=== PATIENT | female | born 1950 ===

== ENCOUNTER 2017-02-19 12:51 | Inpatient (IN) | payer MEDICARE ==
[2017-02-19] MEDS ORDERED: Aspirin 325 mg EC Tablets PO STA (14:52)
[2017-02-19] MEDS ORDERED: Aspirin 325 mg EC Tablets PO ONE (15:18)
[2017-02-19 15:27] LABS: BASO # 0.1 K/uL (0.0-0.2); BASO % 1.4 % (0.0-2.0); EOS # 0.2 K/uL (0.0-0.7); EOS % 3.2 % (0.0-4.0); HEMATOCRIT 35.5 % (34.0-47.0); LYMPH # 1.9 K/uL (1.0-4.3); LYMPH % 34.7 % (20.0-40.0); MEAN CELL VOLUME 84.5 fL (81.0-99.0); MEAN CORPUSCULAR HEMOGLOBIN 28.4 pg (27.0-31.0); MEAN CORPUSCULAR HGB CONC 33.6 g/dL (33.0-37.0); MEAN PLATELET VOLUME 8.8 fL (7.2-11.7); MONO # 0.4 K/uL (0.0-0.8); MONO % 7.8 % (0.0-10.0); RED CELL DISTRIBUTION WIDTH 13.7 % (11.5-14.5); WHITE BLOOD COUNT 5.5 K/uL (4.8-10.8)
[2017-02-19 15:40] LABS: INR 1.1
[2017-02-19 16:02] LABS: BILIRUBIN,TOTAL 0.7 mg/dL (0.2-1.3); GFR AFRICAN-AMERICAN > 60; GLUCOSE,RANDOM 150 mg/dL (65-105); TOTAL PROTEIN 9.1 g/dL (6.3-8.3)
[2017-02-19 16:11] LABS: ALKALINE PHOSPHATASE 59 U/L (38-126); ALT/SGPT 34 U/L (9-52); AST/SGOT 31 U/L (14-36); BLOOD UREA NITROGEN 23 mg/dL (7-17); CARBON DIOXIDE 23 mmol/L (22-30); CHLORIDE 101 mmol/L (98-107); SODIUM 136 mmol/L (132-148)
--- NOTE | 2017-02-19 16:57 | RAD ---
PROCEDURE: CHEST RADIOGRAPH, 1 VIEW HISTORY: chest pain COMPARISON: Comparison chest 07/26/2016. FINDINGS: LUNGS: Mild bibasilar atelectasis left greater than right. Slight elevation left hemidiaphragm likely due to subjacent air-filled bowel within the left upper quadrant of the abdomen. PLEURA: No pneumothorax or pleural fluid seen. CARDIOVASCULAR: Normal. OSSEOUS STRUCTURES: No significant abnormalities. VISUALIZED UPPER ABDOMEN: Metallic clips right upper quadrant of the abdomen consistent with prior cholecystectomy. OTHER FINDINGS: None. IMPRESSION: Mild bibasilar atelectasis left greater than right. Slight elevation left hemidiaphragm as above.
--- NOTE | 2017-02-19 17:51 | C.PDOC ---
History Of Present Illness Pt was sent in by her [employer] Operator Dr. Vanegas for admission. Time Seen by Provider: 02/19/17 14:14 Chief Complaint (Nursing): Chest Pain History Per: Patient Onset/Duration Of Symptoms: Days, Intermittent Episodes Current Symptoms Are (Timing): Still Present Severity: Moderate Quality: Pressure Associated Symptoms: Dyspnea. denies: Diaphoresis, Syncope Modifying Factors: Other Indicated Below Exacerbating Factors: Exertion Alleviating Factors: Rest Additional History Per: Prior Records Past Medical History Reviewed: Historical Data, Nursing Documentation, Vital Signs Vital Signs: Last Vital Signs Temp 98.2 F 02/19/17 13:13 Pulse 94 H 02/19/17 13:13 Resp 20 02/19/17 13:13 BP 155/81 H 02/19/17 13:13 Pulse Ox 100 02/19/17 13:13 - Medical History PMH: Asthma (childhood), Diabetes, HTN, Hypercholesterolemia Surgical History: Cholecystectomy Other Surgeries: Hysterectomy - [facility] Procedures CORONAR ARTERIOGR-2 CATH (06/01/01) LEFT HEART CARDIAC CATH (06/01/01) LT HEART ANGIOCARDIOGRAM (06/01/01) Family History: States: Unknown Family Hx - Social History Hx Tobacco Use: No Hx Alcohol Use: No Hx Substance Use: No - Immunization History Hx Tetanus Toxoid Vaccination: No Hx Influenza Vaccination: Yes Hx Pneumococcal Vaccination: No Review Of Systems Except As Marked, All Systems Reviewed And Found Negative. Constitutional: Negative for: Fever, Weakness Cardiovascular: Positive for: Chest Pain Respiratory: Positive for: SOB with Excertion. Negative for: Hemoptysis Gastrointestinal: Negative for: Vomiting, Abdominal Pain Musculoskeletal: Negative for: Neck Pain, Back Pain, Leg Pain Skin: Negative for: Rash Neurological: Negative for: Weakness, Numbness Physical Exam - Physical Exam Appears: Non-toxic, No Acute Distress Skin: Normal Color, Warm, Dry, No Rash Head: Atraumatic, Normacephalic Eye(s): bilateral: Normal Inspection, PERRL, EOMI Neck: Normal ROM, Supple Cardiovascular: Rhythm Regular Respiratory: Normal Breath Sounds, No Accessory Muscle Use Gastrointestinal/Abdominal: Soft, No Tenderness Back: No CVA Tenderness Extremity: Normal ROM, No Calf Tenderness Neurological/Psych: Oriented x3, Normal Motor, Normal Sensation ED Course And Treatment - Laboratory Results Result Diagrams: 02/19/17 15:15 02/19/17 15:15 Lab Interpretation: No Acute Changes ECG: Interpreted By Me, Viewed By Me ECG Rhythm: Sinus Rhythm, R BBB, Nonspecific Changes ECG Interpretation: Abnormal Interpretation Of ECG: No prior EKG available for comparison Rate From EC O2 Sat by Pulse Oximetry: 100 Pulse Ox Interpretation: Normal - Radiology CXR: Viewed By Me, Read By Radiologist CXR Interpretation: Yes: No Acute Disease Progress - Interventions Interventions:: Observation - Medications Administered Oral: Aspirin - Data Reviewed Data Reviewed: Lab, Diagnostic imaging, EKG, Old records - Continuity of Care Discussed patient case with:: Patient, ED Nurse, PMD - Patient Plan Patient Plan: Admission, Telemetry Disposition Discussed With Dr.: Aquiles Strange Jr. Comment: He accepted pt on his service. Pt also signed out to [facility]. Doctor Will See Patient In The: Hospital Counseled Patient/Family Regarding: Studies Performed, Diagnosis - Disposition Disposition: HOSPITALIZED Disposition Time: 17:54 Condition: FAIR - Clinical Impression Clinical Impression: Exertional chest pain, Angina pectoris
[2017-02-19] MEDS ORDERED: Glucagon Recombinant 1 mg Inj IM PRN (18:03)
[2017-02-19] MEDS ORDERED: Dextrose 50% SYRINGE Inj (50 ml) IV PRN (18:03)
--- NOTE | 2017-02-19 18:25 | CP.PCM.HP ---
History of Present Illness - History of Present Illness History of Present Illness: CC: Chest pain for months with movement This patient is a 66yo F w/ a PMhx of HTN, HLD, DM on Insulin, and strong family history of CAD and from [place] in 50's (Dad , brother with [place] and stroke), previous smoker who is coming into the hospital for a few months duration of left sided chest pain worse with exercise and movement. She states he moves into her left arm, and gets better with rest. However it has been happening more frequently with less and less movement. Patient is currently denying any chest pain, HILL, fevers/chills, N/V/D, dysuria/freq/urg, or lower extremity pain/swelling. PMhx: HTN, HLD, DM on insulin Allergies: Contrast Dye; anaphylaxis Meds: Please refer to MAR Surgeries: extensive; gallbladder removal, total abdominal hysterectomy w/ complication of extensive adhesions causing pederson-enteritis which eventually resulted in 1yr of colostomy and eventual reversal, hand surgery FamHx: Dad in 50's from heart attack, brother with stroke and [place] Social: previous smoker, stopped 20 years ago, denies Etoh/drugs, independent in all IADL and ADL, walks without independently Present on Admission - Present on Admission Any Indicators Present on Admission: No History of DVT/PE: No History of Uncontrolled Diabetes: Yes Urinary Catheter: No Decubitus Ulcer Present: No Review of Systems - Constitutional Constitutional: As Per HPI Past Patient History - Infectious Disease Hx of Infectious Diseases: None - Past Social History Smoking Status: Never Smoked - CARDIAC Hx Hypercholesterolemia: Yes Hx Hypertension: Yes - PULMONARY Hx Asthma: Yes (childhood) - ENDOCRINE/METABOLIC Hx Diabetes Mellitus Type 2: Yes - HEMATOLOGICAL/ONCOLOGICAL Hx Blood Disorders: No - INTEGUMENTARY Hx Dermatological Problems: No - MUSCULOSKELETAL/RHEUMATOLOGICAL Hx Musculoskeletal Disorders: No - GASTROINTESTINAL Hx Gastrointestinal Disorders: No - GENITOURINARY/GYNECOLOGICAL Hx Genitourinary Disorders: No - PSYCHIATRIC Hx Substance Use: No - SURGICAL HISTORY Hx Cholecystectomy: Yes - ANESTHESIA Hx Anesthesia: Yes Hx Anesthesia Reactions: No Meds Allergies/Adverse Reactions: Allergies Allergy/AdvReac Type Severity Reaction Status Date / Time metronidazole [From Flagyl] Allergy Verified 02/19/17 14:04 contrast dye Allergy Uncoded 02/19/17 14:04 Physical Exam - Constitutional Appears: Well, Non-toxic - Head Exam Head Exam: ATRAUMATIC, NORMAL INSPECTION - Eye Exam Eye Exam: EOMI, Normal appearance - ENT Exam ENT Exam: Mucous Membranes Moist - Neck Exam Neck exam: Positive for: Normal Inspection - Respiratory Exam Respiratory Exam: Clear to Auscultation Bilateral, NORMAL BREATHING PATTERN. absent: Rales, Rhonchi, Wheezes - Cardiovascular Exam Cardiovascular Exam: REGULAR RHYTHM, RRR, +S1, +S2, Systolic Murmur (5/6 systolic murmur in pulmonic region). absent: Gallop - GI/Abdominal Exam GI & Abdominal Exam: Normal Bowel Sounds, Soft. absent: Tenderness - Rectal Exam Rectal Exam: Deferred - Extremities Exam Extremities exam: Positive for: full ROM. Negative for: calf tenderness - Back Exam Back exam: NORMAL INSPECTION. absent: CVA tenderness (L), CVA tenderness (R) - Neurological Exam Neurological exam: Alert, Oriented x3 - Psychiatric Exam Psychiatric exam: Normal Affect - Skin Skin Exam: Warm Results - Vital Signs Recent Vital Signs: Last Vital Signs Temp 98.2 F 02/19/17 13:13 Pulse 94 H 02/19/17 13:13 Resp 20 02/19/17 13:13 BP 155/81 H 02/19/17 13:13 Pulse Ox 100 02/19/17 17:54 - Labs Result Diagrams: 02/19/17 15:15 02/19/17 15:15 Labs: Laboratory Results - last 24 hr 02/19/17 02/19/17 02/19/17 15:15 15:15 15:15 WBC 5.5 RBC 4.20 Hgb 11.9 Hct 35.5 MCV 84.5 MCH 28.4 MCHC 33.6 RDW 13.7 Plt Count 221 MPV 8.8 Neut % (Auto) 52.9 Lymph % (Auto) 34.7 [place] % (Auto) 7.8 Eos % (Auto) 3.2 Baso % (Auto) 1.4 Neut # 2.9 Lymph # 1.9 [place] # 0.4 Eos # 0.2 Baso # 0.1 PT 12.2 INR 1.1 APTT 30 Sodium 136 Potassium 5.0 Chloride 101 Carbon Dioxide 23 Anion Gap 17 BUN 23 H Creatinine 1.0 Est GFR ( Amer) > 60 Est GFR (Non-Af Amer) 55 Random Glucose 150 H Calcium 9.0 Total Bilirubin 0.7 AST 31 ALT 34 Alkaline Phosphatase 59 Troponin I < 0.0120 NT-Pro-B Natriuret Pep 40.6 Total Protein 9.1 H Albumin 4.6 Globulin 4.5 H Albumin/Globulin Ratio 1.0 Assessment & Plan - Assessment and Plan (Free Text) Assessment: 66yo F admitted for Unstable Angina Unstable Angina -Keisha 1 negative; f/u next 2 -EKG shows incomplete RBBB; no previous to compare -f/u lipid panel, hemoglobin A1c, TSH/T4 -patient is NPO after midnight for cath tomorrow AM -f/u echo results -Dr. Vanegas; Cardiology; appreciate recs -will hold nephrotoxic meds for now -will prehydrate patient for cath -patient is allergic to dye; ordered anaphylaxis meds for 1hr before cath tomorrow (solumedrol, benadryl, pepcid, tylenol) HTN -c/w home meds -PRN hydralazine for BP above 185/95 HLD -Crestor HS DM -RISS Med -hold metformin and glipizide Elevated Serum Protein -sent PEP and Immunofixation; f/u results Proph Pepcid SCD after Cath Case Discussed with Dr. Strange Decision To Admit - Pt Status Changed To: Hospital Disposition Of: Inpatient - Admit Certification Admit to Inpatient:: After my assessment, the patient will require hospitalization for at least two midnights. This is because of the severity of symptoms shown, intensity of services needed, and/or the medical risk in this patient being treated as an outpatient. - InPatient: Physician Admission Certification:: Unstable Angina, Cath, HTN, DM, HLD, elevated serum protein - . Bed Request Type: Telemetry Admitting Physician: Aquiles Strange Jr.
[2017-02-19] MEDS ORDERED: Enoxaparin 40 mg Syringe SC ONE (18:29)
[2017-02-19] MEDS ORDERED: Enoxaparin 40 mg Syringe ONE (19:55)
--- NOTE | 2017-02-19 19:56 | CP.PCM.CON ---
History of Present Illness - History of Present Illness History of Present Illness: Unstable angina 66 F with hx of DM, HTN, hyperlipidemia and strong family history of [place] admitted with unstable angina Scheduled for cath tomorrow Past Patient History - Infectious Disease Hx of Infectious Diseases: None - Past Social History Smoking Status: Never Smoked - CARDIAC Hx Hypercholesterolemia: Yes Hx Hypertension: Yes - PULMONARY Hx Asthma: Yes (childhood) - ENDOCRINE/METABOLIC Hx Diabetes Mellitus Type 2: Yes - HEMATOLOGICAL/ONCOLOGICAL Hx Blood Disorders: No - INTEGUMENTARY Hx Dermatological Problems: No - MUSCULOSKELETAL/RHEUMATOLOGICAL Hx Musculoskeletal Disorders: No - GASTROINTESTINAL Hx Gastrointestinal Disorders: No - GENITOURINARY/GYNECOLOGICAL Hx Genitourinary Disorders: No - PSYCHIATRIC Hx Substance Use: No - SURGICAL HISTORY Hx Cholecystectomy: Yes - ANESTHESIA Hx Anesthesia: Yes Hx Anesthesia Reactions: No Meds Allergies/Adverse Reactions: Allergies Allergy/AdvReac Type Severity Reaction Status Date / Time metronidazole [From Flagyl] Allergy Verified 02/19/17 14:04 contrast dye Allergy Uncoded 02/19/17 14:04 - Medications Medications: Current Medications Acetaminophen (Tylenol 325mg Tab) 650 mg PO Q6 PRN PRN Reason: Fever >100.4 F Acetaminophen (Tylenol 325mg Tab) 975 mg PO ONCE ONE Stop: 02/20/17 08:01 Aspirin (Ecotrin) 81 mg PO DAILY DANIEL Dextrose (Dextrose 50% Inj) 0 ml IV STAT PRN; Protocol PRN Reason: Hypoglycemia Protocol Dextrose (Glutose 15) 0 gm PO ONCE PRN; Protocol PRN Reason: Hypoglycemia Protocol Diphenhydramine HCl (Benadryl) 50 mg IVP ONCE ONE Stop: 02/20/17 08:01 Enalapril Maleate (Vasotec) 20 mg PO DAILY DANIEL Famotidine (Pepcid) 20 mg IVP ONCE ONE Stop: 02/20/17 08:01 Glucagon (Glucagen Diagnostic Kit) 0 mg IM STAT PRN; Protocol PRN Reason: Hypoglycemia Protocol Home Med (Adalimumab [Humira Pen]) 12 units SQ HS DANIEL Hydralazine HCl (Apresoline) 10 mg IVP Q6H PRN PRN Reason: High BP Sodium Chloride (Sodium Chloride 0.9%) 1,000 mls @ 1,000 mls/hr IV .Q1H ONE Stop: 02/20/17 06:59 Dextrose (Dextrose 5% In Water 1000 Ml) 1,000 mls @ 0 mls/hr IV .Q0M PRN; Protocol; Per Protocol PRN Reason: Hypoglycemia Protocol Insulin Aspart (Novolog) 0 unit SC ACHS DANIEL PRN Reason: Protocol Methylprednisolone (Solu-Medrol) 125 mg IVP ONCE DANIEL Ondansetron HCl (Zofran Inj) 4 mg IVP Q6 PRN PRN Reason: Nausea/Vomiting Pantoprazole Sodium (Protonix Ec Tab) 40 mg PO DAILY DANIEL Rosuvastatin Calcium (Crestor) 10 mg PO HS DANIEL Results - Vital Signs Recent Vital Signs: Last Vital Signs Temp 98.2 F 02/19/17 13:13 Pulse 94 H 02/19/17 13:13 Resp 20 02/19/17 13:13 BP 155/81 H 02/19/17 13:13 Pulse Ox 100 02/19/17 17:54 - Labs Result Diagrams: 02/19/17 15:15 02/19/17 15:15 Labs: Laboratory Results - last 24 hr 02/19/17 02/19/17 02/19/17 15:15 15:15 15:15 WBC 5.5 RBC 4.20 Hgb 11.9 Hct 35.5 MCV 84.5 MCH 28.4 MCHC 33.6 RDW 13.7 Plt Count 221 MPV 8.8 Neut % (Auto) 52.9 Lymph % (Auto) 34.7 [place] % (Auto) 7.8 Eos % (Auto) 3.2 Baso % (Auto) 1.4 Neut # 2.9 Lymph # 1.9 [place] # 0.4 Eos # 0.2 Baso # 0.1 PT 12.2 INR 1.1 APTT 30 Sodium 136 Potassium 5.0 Chloride 101 Carbon Dioxide 23 Anion Gap 17 BUN 23 H Creatinine 1.0 Est GFR ( Amer) > 60 Est GFR (Non-Af Amer) 55 Random Glucose 150 H Calcium 9.0 Total Bilirubin 0.7 AST 31 ALT 34 Alkaline Phosphatase 59 Troponin I < 0.0120 NT-Pro-B Natriuret Pep 40.6 Total Protein 9.1 H Albumin 4.6 Globulin 4.5 H Albumin/Globulin Ratio 1.0 TSH 3rd Generation 02/19/17 18:52 WBC RBC Hgb Hct MCV MCH MCHC RDW Plt Count MPV Neut % (Auto) Lymph % (Auto) [place] % (Auto) Eos % (Auto) Baso % (Auto) Neut # Lymph # [place] # Eos # Baso # PT INR APTT Sodium Potassium Chloride Carbon Dioxide Anion Gap BUN Creatinine Est GFR ( Amer) Est GFR (Non-Af Amer) Random Glucose Calcium Total Bilirubin AST ALT Alkaline Phosphatase Troponin I NT-Pro-B Natriuret Pep Total Protein Albumin Globulin Albumin/Globulin Ratio TSH 3rd Generation 0.63
[2017-02-19] MEDS: (Novolog) Insulin Aspart, Recombinant 100 u/ml 10 ml vial SC SCH (21:30)
[2017-02-19] MEDS ORDERED: ADALIMUMAB SQ SCH (22:00)
[2017-02-19] MEDS ORDERED: (Novolog) Insulin Aspart, Recombinant 100 u/ml 10 ml vial SC SCH (22:00)
[2017-02-20 04:14] LABS: BASO # 0.1 K/uL (0.0-0.2); BASO % 1.3 % (0.0-2.0); EOS # 0.3 K/uL (0.0-0.7); EOS % 4.6 % (0.0-4.0); HEMATOCRIT 33.9 % (34.0-47.0); LYMPH # 2.7 K/uL (1.0-4.3); LYMPH % 47.8 % (20.0-40.0); MEAN CELL VOLUME 83.4 fL (81.0-99.0); MEAN CORPUSCULAR HEMOGLOBIN 28.1 pg (27.0-31.0); MEAN CORPUSCULAR HGB CONC 33.7 g/dL (33.0-37.0); MEAN PLATELET VOLUME 8.7 fL (7.2-11.7); MONO # 0.4 K/uL (0.0-0.8); MONO % 6.5 % (0.0-10.0); RED CELL DISTRIBUTION WIDTH 13.4 % (11.5-14.5); WHITE BLOOD COUNT 5.6 K/uL (4.8-10.8)
[2017-02-20] MEDS ORDERED: Sodium Chloride 0.9% 1,000 ML IV ONE (06:00)
[2017-02-20 06:26] LABS: ALB/GLOB RATIO 1.5 (1.0-2.1); ALKALINE PHOSPHATASE 62 U/L (38-126); ALT/SGPT 31 U/L (9-52); AST/SGOT 19 U/L (14-36); BILIRUBIN,TOTAL 0.6 mg/dL (0.2-1.3); BLOOD UREA NITROGEN 21 mg/dL (7-17); CALCIUM 8.9 mg/dl (8.6-10.4); CARBON DIOXIDE 26 mmol/L (22-30); CHLORIDE 101 mmol/L (98-107); CHOLESTEROL 127 mg/dL (0-199); GFR AFRICAN-AMERICAN 60; GLUCOSE,RANDOM 188 mg/dL (65-105); POTASSIUM 4.9 mmol/L (3.6-5.2); SODIUM 135 mmol/L (132-148)
[2017-02-20] MEDS: (Novolog) Insulin Aspart, Recombinant 100 u/ml 10 ml vial SC SCH ×4 (07:50→21:52)
[2017-02-20] MEDS ORDERED: DiphenhydrAMINE 50 mg/ml Inj IVP ONE (08:00)
[2017-02-20] MEDS ORDERED: DiphenhydrAMINE 50 mg/ml Inj ONE (08:11)
--- NOTE | 2017-02-20 09:37 | CP.PCM.PN ---
Subjective - Date & Time of Evaluation Date of Evaluation: 02/20/17 Time of Evaluation: 04:00 - Subjective Subjective: Medicine Note (PGY-1)----> Dr. Strange's service Patient was seen and examined at bedside. Patient reports that she is doing well and has no complaints. Patient denies fever, chills, chest pain, sob, palpitations, diaphoresis, nausea, vomiting, headache, dizziness, abdominal pain , nausea and vomiting. Patient is tolerating diet and ambulating. Patient is scheduled for a cardiac catherization tomorrow. Objective - Vital Signs/Intake and Output Vital Signs (last 24 hours): Temp Pulse Resp BP Pulse Ox 98 F 89 22 160/73 H 97 02/20/17 06:34 02/20/17 09:05 02/20/17 09:05 02/20/17 09:05 02/20/17 09:05 - Medications Medications: Current Medications Acetaminophen (Tylenol 325mg Tab) 650 mg PO Q6 PRN PRN Reason: Fever >100.4 F Aspirin (Ecotrin) 81 mg PO DAILY DANIEL Dextrose (Dextrose 50% Inj) 0 ml IV STAT PRN; Protocol PRN Reason: Hypoglycemia Protocol Dextrose (Glutose 15) 0 gm PO ONCE PRN; Protocol PRN Reason: Hypoglycemia Protocol Enalapril Maleate (Vasotec) 20 mg PO DAILY DANIEL Glucagon (Glucagen Diagnostic Kit) 0 mg IM STAT PRN; Protocol PRN Reason: Hypoglycemia Protocol Home Med (Adalimumab [Humira Pen]) 12 units SQ HS DANIEL Hydralazine HCl (Apresoline) 10 mg IVP Q6H PRN PRN Reason: High BP Dextrose (Dextrose 5% In Water 1000 Ml) 1,000 mls @ 0 mls/hr IV .Q0M PRN; Protocol; Per Protocol PRN Reason: Hypoglycemia Protocol Insulin Aspart (Novolog) 0 unit SC ACHS DANIEL PRN Reason: Protocol Last Admin: 02/20/17 07:50 Dose: Not Given Methylprednisolone (Solu-Medrol) 125 mg IVP ONCE DANIEL Ondansetron HCl (Zofran Inj) 4 mg IVP Q6 PRN PRN Reason: Nausea/Vomiting Pantoprazole Sodium (Protonix Ec Tab) 40 mg PO DAILY DANIEL Rosuvastatin Calcium (Crestor) 10 mg PO HS DANIEL - Labs Labs: 02/20/17 04:09 02/20/17 04:09 PT 12.2 SECONDS (9.7-12.2) 02/19/17 15:15 INR 1.1 02/19/17 15:15 APTT 30 SECONDS (21-34) 02/19/17 15:15 - Constitutional Appears: Well, No Acute Distress - Head Exam Head Exam: ATRAUMATIC - Eye Exam Eye Exam: EOMI, Normal appearance - ENT Exam ENT Exam: Mucous Membranes Moist - Respiratory Exam Respiratory Exam: Clear to Ausculation Bilateral, NORMAL BREATHING PATTERN - Cardiovascular Exam Cardiovascular Exam: REGULAR RHYTHM, +S1, +S2, Murmur - GI/Abdominal Exam GI & Abdominal Exam: Soft, Normal Bowel Sounds - Extremities Exam Extremities Exam: Normal Inspection - Neurological Exam Neurological Exam: Alert, Awake, Oriented x3 - Psychiatric Exam Psychiatric exam: Normal Affect - Skin Skin Exam: Normal Color Assessment and Plan (1) Exertional chest pain Assessment & Plan: Rock 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 Vanegas on board---> Help appreciated * Management as per recommendation * Cardiac catherization tomorrow R/o AR * HgbA1c: 8.4 * Lipid Panel: TGL (173), LDL (53), HDL (47), Cholesterol (127) * T3 Generation: 0.63 * VIN ( Negative X3) * Lexiscan from 05/13 was normal with normal EF * EKG shows NSR, incomplete RBBB; no previous to compare Medications: * Aspirin 81mg PO daily * Crestor 10mg POI HS Status: Acute (2) History of diabetes mellitus Assessment & Plan: HgbA1C: 8.4 Accuchecks ISS medium dose Hypoglycemia protocol Status: Acute (3) History of hypertension Assessment & Plan: Medications: * Vasotec 20mg PO daily * Hydralazine 10mg IV Q6H prn; SBP>180 and diastolic >95 Status: Acute (4) History of hyperlipidemia Assessment & Plan: Medications: * Crestor 10mg PO HS Status: Acute (5) Prophylactic measure Assessment & Plan: GI: Protonix 40mg PO daily DVT: SCDS Status: Acute
[2017-02-20] MEDS ORDERED: INSULIN ASPART 15 UNIT SQ SCH (10:00)
[2017-02-20] MEDS: Pantoprazole 40 mg EC Tab PO SCH (15:14)
--- NOTE | 2017-02-20 17:44 | CARD ---
APPROVED REPORT EKG Measurement Heart [id number] <Conclusion> Normal sinus rhythm with sinus arrhythmia Left axis deviation Right bundle branch block Abnormal ECG
[2017-02-21 06:10] LABS: TOTAL PROTEIN, SERUM 6.8 g/dL (6.1-8.1)
[2017-02-21] MEDS: (Novolog) Insulin Aspart, Recombinant 100 u/ml 10 ml vial SC SCH ×4 (08:22→22:16)
[2017-02-21 08:54] LABS: BASO # 0.1 K/uL (0.0-0.2); EOS # 0.2 K/uL (0.0-0.7); HEMATOCRIT 39.1 % (34.0-47.0); LYMPH # 1.7 K/uL (1.0-4.3); LYMPH % 27.9 % (20.0-40.0); MEAN CELL VOLUME 83.6 fL (81.0-99.0); MEAN CORPUSCULAR HEMOGLOBIN 27.8 pg (27.0-31.0); MEAN CORPUSCULAR HGB CONC 33.2 g/dL (33.0-37.0); MONO # 0.4 K/uL (0.0-0.8); MONO % 5.9 % (0.0-10.0); RED CELL DISTRIBUTION WIDTH 13.3 % (11.5-14.5); WHITE BLOOD COUNT 6.1 K/uL (4.8-10.8)
[2017-02-21] MEDS ORDERED: DiphenhydrAMINE 50 mg/ml Inj IVP ONE (09:00)
[2017-02-21 09:05] LABS: ALB/GLOB RATIO 1.4 (1.0-2.1); CALCIUM 9.3 mg/dl (8.6-10.4); MAGNESIUM 1.6 mg/dL (1.6-2.3); PHOSPHOROUS 3.1 mg/dL (2.5-4.5); POTASSIUM 4.9 mmol/L (3.6-5.2); TOTAL PROTEIN 8.2 g/dL (6.3-8.3)
[2017-02-21] MEDS ORDERED: Midazolam 2 MG/2 ML VIAL ONE (09:16)
[2017-02-21] MEDS ORDERED: Iodixanol 320 MG/ML 200 ML BOTTLE IV ONE (09:17)
[2017-02-21] MEDS ORDERED: Lidocaine 2% Inj (20ml) ONE (09:47)
[2017-02-21] MEDS ORDERED: Sodium Chloride 0.9% 1,000 ML IV SCH (11:45)
[2017-02-21] MEDS: Pantoprazole 40 mg EC Tab PO SCH (13:42)
--- NOTE | 2017-02-21 18:51 | CP.PCM.PN ---
Subjective - Date & Time of Evaluation Date of Evaluation: 02/21/17 Time of Evaluation: 07:30 - Subjective Subjective: Medicine Note (PGY-1)----> Dr. Strange's service Patient was seen and examined at bedside. Patient reports that she is doing well and has no complaints. Patient denies fever, chills, chest pain, sob, palpitations, diaphoresis, nausea, vomiting, headache, dizziness, abdominal pain , nausea and vomiting. Patient is tolerating diet and ambulating. Patient is scheduled for a cardiac catherization today Objective - Vital Signs/Intake and Output Vital Signs (last 24 hours): Temp Pulse Resp BP Pulse Ox 97.8 F 97 H 20 143/74 98 02/21/17 15:12 02/21/17 15:12 02/21/17 15:12 02/21/17 15:12 02/21/17 15:12 Intake and Output: 02/21/17 02/21/17 06:59 18:59 Intake Total 460 Balance 460 - Medications Medications: Current Medications Acetaminophen (Tylenol 325mg Tab) 650 mg PO Q6 PRN PRN Reason: Fever >100.4 F Last Admin: 02/20/17 17:03 Dose: 650 mg Aspirin (Ecotrin) 81 mg PO DAILY [facility] Last Admin: 02/21/17 11:00 Dose: Not Given Dextrose (Dextrose 50% Inj) 0 ml IV STAT PRN; Protocol PRN Reason: Hypoglycemia Protocol Dextrose (Glutose 15) 0 gm PO ONCE PRN; Protocol PRN Reason: Hypoglycemia Protocol Enalapril Maleate (Vasotec) 20 mg PO DAILY [facility] Last Admin: 02/21/17 14:48 Dose: 20 mg Glucagon (Glucagen Diagnostic Kit) 0 mg IM STAT PRN; Protocol PRN Reason: Hypoglycemia Protocol Home Med (Adalimumab [Humira Pen]) 12 units SQ HS [facility] Hydralazine HCl (Apresoline) 10 mg IVP Q6H PRN PRN Reason: High BP Last Admin: 02/20/17 11:25 Dose: 10 mg Dextrose (Dextrose 5% In Water 1000 Ml) 1,000 mls @ 0 mls/hr IV .Q0M PRN; Protocol; Per Protocol PRN Reason: Hypoglycemia Protocol Sodium Chloride (Sodium Chloride 0.9%) 1,000 mls @ 80 mls/hr IV .[id number] [facility] Stop: 02/21/17 23:46 Last Admin: 02/21/17 13:00 Dose: 80 mls/hr Insulin Aspart (Novolog) 0 unit SC ACHS DANIEL PRN Reason: Protocol Last Admin: 02/21/17 18:14 Dose: 8 unit Methylprednisolone (Solu-Medrol) 125 mg IVP ONCE DANIEL Ondansetron HCl (Zofran Inj) 4 mg IVP Q6 PRN PRN Reason: Nausea/Vomiting Pantoprazole Sodium (Protonix Ec Tab) 40 mg PO DAILY [facility] Last Admin: 02/21/17 13:42 Dose: 40 mg Pneumococcal Polyvalent Vaccine (Pneumovax 23 Vaccine) 0.5 ml IM .ONCE ONE Stop: 02/22/17 10:01 Rosuvastatin Calcium (Crestor) 10 mg PO HS [facility] Last Admin: 02/20/17 21:53 Dose: 10 mg - Labs Labs: 02/21/17 08:42 02/21/17 08:42 PT 12.2 SECONDS (9.7-12.2) 02/19/17 15:15 INR 1.1 02/19/17 15:15 APTT 30 SECONDS (21-34) 02/19/17 15:15 - Constitutional Appears: Well, No Acute Distress - Head Exam Head Exam: ATRAUMATIC - Eye Exam Eye Exam: EOMI, Normal appearance - ENT Exam ENT Exam: Mucous Membranes Moist - Respiratory Exam Respiratory Exam: Clear to Ausculation Bilateral, NORMAL BREATHING PATTERN - Cardiovascular Exam Cardiovascular Exam: REGULAR RHYTHM, +S1, +S2 - GI/Abdominal Exam GI & Abdominal Exam: Soft, Normal Bowel Sounds - Extremities Exam Extremities Exam: Normal Inspection. absent: Calf Tenderness, Pedal Edema - Neurological Exam Neurological Exam: Alert, Awake, Oriented x3 - Psychiatric Exam Psychiatric exam: Normal Affect, Normal Mood - Skin Skin Exam: Normal Color Assessment and Plan (1) Exertional chest pain Assessment & Plan: Dust Collector, Dr. Vanegas on board---> Help appreciated * Management as per recommendation * Cardiac catherization today; f/u official reports R/o CA * HgbA1c: 8.4 * Lipid Panel: TGL (173), LDL (53), HDL (47), Cholesterol (127) * T3 Generation: 0.63 * VIN ( Negative X3) * Lexiscan from 05/13 was normal with normal EF * EKG shows NSR, incomplete RBBB; no previous to compare Medications: * Aspirin 81mg PO daily * Crestor 10mg PO HS Status: Acute (2) History of diabetes mellitus Assessment & Plan: HgbA1C: 8.4 Accuchecks ISS medium dose Hypoglycemia protocol Status: Acute (3) History of hypertension Assessment & Plan: Medications: * Vasotec 20mg PO daily * Hydralazine 10mg IV Q6H prn; SBP>180 and diastolic >95 Status: Acute (4) History of hyperlipidemia Assessment & Plan: Medications: * Crestor 10mg PO HS Status: Acute (5) Prophylactic measure Assessment & Plan: GI: Protonix 40mg PO daily DVT: SCDS All management as per Dr. Strange Status: Acute
--- NOTE | 2017-02-21 22:27 | CP.PCM.PN ---
Subjective - Date & Time of Evaluation Date of Evaluation: 02/21/17 Time of Evaluation: 11:30 - Subjective Subjective: Patient s/p cath Non obstructive coronaries Normal EF Medical mgt for HTN Objective - Vital Signs/Intake and Output Vital Signs (last 24 hours): Temp Pulse Resp BP Pulse Ox 97.8 F 98 H 20 143/74 98 02/21/17 15:12 02/21/17 17:30 02/21/17 15:12 02/21/17 15:12 02/21/17 15:12 Intake and Output: 02/21/17 02/22/17 18:59 06:59 Intake Total 460 Balance 460 - Medications Medications: Current Medications Acetaminophen (Tylenol 325mg Tab) 650 mg PO Q6 PRN PRN Reason: Fever >100.4 F Last Admin: 02/20/17 17:03 Dose: 650 mg Aspirin (Ecotrin) 81 mg PO DAILY [facility] Last Admin: 02/21/17 11:00 Dose: Not Given Dextrose (Dextrose 50% Inj) 0 ml IV STAT PRN; Protocol PRN Reason: Hypoglycemia Protocol Dextrose (Glutose 15) 0 gm PO ONCE PRN; Protocol PRN Reason: Hypoglycemia Protocol Enalapril Maleate (Vasotec) 20 mg PO DAILY [facility] Last Admin: 02/21/17 14:48 Dose: 20 mg Glucagon (Glucagen Diagnostic Kit) 0 mg IM STAT PRN; Protocol PRN Reason: Hypoglycemia Protocol Home Med (Adalimumab [Humira Pen]) 12 units SQ HS [facility] Hydralazine HCl (Apresoline) 10 mg IVP Q6H PRN PRN Reason: High BP Last Admin: 02/20/17 11:25 Dose: 10 mg Dextrose (Dextrose 5% In Water 1000 Ml) 1,000 mls @ 0 mls/hr IV .Q0M PRN; Protocol; Per Protocol PRN Reason: Hypoglycemia Protocol Sodium Chloride (Sodium Chloride 0.9%) 1,000 mls @ 80 mls/hr IV .[id number] [facility] Stop: 02/21/17 23:46 Last Admin: 02/21/17 13:00 Dose: 80 mls/hr Insulin Aspart (Novolog) 0 unit SC ACHS DANIEL PRN Reason: Protocol Last Admin: 02/21/17 22:16 Dose: 4 unit Methylprednisolone (Solu-Medrol) 125 mg IVP ONCE DANIEL Ondansetron HCl (Zofran Inj) 4 mg IVP Q6 PRN PRN Reason: Nausea/Vomiting Pantoprazole Sodium (Protonix Ec Tab) 40 mg PO DAILY [facility] Last Admin: 02/21/17 13:42 Dose: 40 mg Pneumococcal Polyvalent Vaccine (Pneumovax 23 Vaccine) 0.5 ml IM .ONCE ONE Stop: 02/22/17 10:01 Rosuvastatin Calcium (Crestor) 10 mg PO HS [facility] Last Admin: 02/21/17 22:16 Dose: 10 mg - Labs Labs: 02/21/17 08:42 02/21/17 08:42 PT 12.2 SECONDS (9.7-12.2) 02/19/17 15:15 INR 1.1 02/19/17 15:15 APTT 30 SECONDS (21-34) 02/19/17 15:15
[2017-02-21 23:22] LABS: BETA 1 GLOBULIN 0.5 g/dL (0.4-0.6); BETA 2 GLOBULIN 0.4 g/dL (0.2-0.5); GAMMA GLOBULIN 1.1 g/dL (0.8-1.7)
[2017-02-22] MEDS: (Novolog) Insulin Aspart, Recombinant 100 u/ml 10 ml vial SC SCH ×4 (03:24→17:32)
--- NOTE | 2017-02-22 06:59 | CARD ---
APPROVED REPORT EXAM: LIMITED Two-dimensional and M-mode echocardiogram with Doppler and color Doppler. Other Information Quality : AverageRhythm : INDICATION Cardiac Disease: CAD Chest Pain RISK FACTORS Hypertension Hyperlipidemia Diabetes Mitral Valve MV E Xfvrtriw73.3cm/sMV A Bhxpfrrh851.2cm/sE/A ratio0.6 TDI E/Lateral E'0.0E/Medial E'0.0 Tricuspid Valve TR Peak Cscfspap024vh/sTR Peak Gr.[id number] LEFT VENTRICLE The left ventricle is normal size. There is normal left ventricular wall thickness. The Ejection Fraction is 60-65%. Left ventricle systolic function is normal. There is normal LV segmental wall motion. Tissue Doppler imaging reveals abnormal left ventricular diastolic dysfunction. RIGHT VENTRICLE The right ventricle is normal size. There is normal right ventricular wall thickness. The right ventricular systolic function is normal. ATRIA The left atrium size is normal. The right atrium size is normal. The atrial septum is aneurysmal. AORTIC VALVE The aortic valve is normal in structure. No aortic regurgitation is present. There is no aortic valvular stenosis. MITRAL VALVE The mitral valve is normal in structure. There is no evidence of mitral valve prolapse. There is no mitral valve stenosis. Mitral regurgitation is mild. TRICUSPID VALVE The tricuspid valve is normal in structure. There is mild tricuspid regurgitation. Right ventricular systolic pressure is estimated at less than 30 mmHg. There is no pulmonary hypertension. PULMONIC VALVE The pulmonic valve is not well visualized. There is no pulmonic valvular regurgitation. GREAT VESSELS The aortic root is normal in size. <Conclusion> The Ejection Fraction is 60-65%. Left ventricle systolic function is normal. The atrial septum is aneurysmal. No aortic regurgitation is present. Mitral regurgitation is mild. There is mild tricuspid regurgitation. There is no pulmonary hypertension. There is no pulmonic valvular regurgitation.
[2017-02-22 08:12] LABS: BASO % 0.6 % (0.0-2.0); EOS # 0.1 K/uL (0.0-0.7); EOS % 1.1 % (0.0-4.0); HEMATOCRIT 36.5 % (34.0-47.0); LYMPH # 1.9 K/uL (1.0-4.3); LYMPH % 24.4 % (20.0-40.0); MEAN CELL VOLUME 84.2 fL (81.0-99.0); MEAN CORPUSCULAR HEMOGLOBIN 27.9 pg (27.0-31.0); MEAN CORPUSCULAR HGB CONC 33.2 g/dL (33.0-37.0); MEAN PLATELET VOLUME 9.3 fL (7.2-11.7); MONO # 0.7 K/uL (0.0-0.8); MONO % 8.6 % (0.0-10.0); NRBC % 0.1 % (0.0-2.0); RED CELL DISTRIBUTION WIDTH 13.6 % (11.5-14.5); WHITE BLOOD COUNT 7.6 K/uL (4.8-10.8)
[2017-02-22 08:48] LABS: ALB/GLOB RATIO 1.3 (1.0-2.1); BILIRUBIN,TOTAL 0.8 mg/dL (0.2-1.3); CALCIUM 8.7 mg/dl (8.6-10.4); MAGNESIUM 1.8 mg/dL (1.6-2.3); PHOSPHOROUS 3.4 mg/dL (2.5-4.5); TOTAL PROTEIN 7.8 g/dL (6.3-8.3)
[2017-02-22] MEDS: Pantoprazole 40 mg EC Tab PO SCH (09:31)
[2017-02-22] MEDS ORDERED: Influenza Vaccine 60 mcg/0.5 mL SYR (4YR UP) IM ONE (10:00)
[2017-02-22] MEDS ORDERED: Pneumococcal 23-Valent Vaccine IM ONE (10:00)
--- NOTE | 2017-02-22 11:05 | CP.PCM.DIS ---
Provider - Provider Date of Admission: 02/19/17 17:54 Attending physician: Aquiles Strange Jr, MD Time Spent in preparation of Discharge (in minutes): 35 Diagnosis - Discharge Diagnosis (1) Exertional chest pain Status: Acute (2) History of diabetes mellitus Status: Acute (3) History of hypertension Status: Acute (4) History of hyperlipidemia Status: Acute (5) Prophylactic measure Status: Acute Hospital Course - Lab Results Lab Results: Most Recent Lab Values WBC 7.6 K/uL (4.8-10.8) 02/22/17 08:02 RBC 4.33 Mil/uL (3.80-5.20) 02/22/17 08:02 Hgb 12.1 g/dL (11.0-16.0) 02/22/17 08:02 Hct 36.5 % (34.0-47.0) 02/22/17 08:02 MCV 84.2 fL (81.0-99.0) 02/22/17 08:02 MCH 27.9 pg (27.0-31.0) 02/22/17 08:02 MCHC 33.2 g/dL (33.0-37.0) 02/22/17 08:02 RDW 13.6 % (11.5-14.5) 02/22/17 08:02 Plt Count 255 K/uL (130-400) 02/22/17 08:02 MPV 9.3 fL (7.2-11.7) 02/22/17 08:02 Neut % (Auto) 65.3 % (50.0-75.0) 02/22/17 08:02 Lymph % (Auto) 24.4 % (20.0-40.0) 02/22/17 08:02 [place] % (Auto) 8.6 % (0.0-10.0) 02/22/17 08:02 Eos % (Auto) 1.1 % (0.0-4.0) 02/22/17 08:02 Baso % (Auto) 0.6 % (0.0-2.0) 02/22/17 08:02 Neut # 5.0 K/uL (1.8-7.0) 02/22/17 08:02 Lymph # 1.9 K/uL (1.0-4.3) 02/22/17 08:02 [place] # 0.7 K/uL (0.0-0.8) 02/22/17 08:02 Eos # 0.1 K/uL (0.0-0.7) 02/22/17 08:02 Baso # 0.0 K/uL (0.0-0.2) 02/22/17 08:02 PT 12.2 SECONDS (9.7-12.2) 02/19/17 15:15 INR 1.1 02/19/17 15:15 APTT 30 SECONDS (21-34) 02/19/17 15:15 Sodium 134 mmol/L (132-148) 02/22/17 08:02 Potassium 4.0 mmol/L (3.6-5.2) 02/22/17 08:02 Chloride 99 mmol/L (98-107) 02/22/17 08:02 Carbon Dioxide 20 mmol/L (22-30) L 02/22/17 08:02 Anion Gap 20 (10-20) 02/22/17 08:02 BUN 22 mg/dL (7-17) H 02/22/17 08:02 Creatinine 1.2 mg/dL (0.7-1.2) 02/22/17 08:02 Est GFR ( Amer) 54 02/22/17 08:02 Est GFR (Non-Af Amer) 45 02/22/17 08:02 POC Glucose (mg/dL) 270 mg/dL (65-110) H 02/22/17 06:34 Random Glucose 268 mg/dL (65-105) H 02/22/17 08:02 Hemoglobin A1c 8.4 % (4.2-6.5) H 02/20/17 04:09 Calcium 8.7 mg/dl (8.6-10.4) 02/22/17 08:02 Phosphorus 3.4 mg/dL (2.5-4.5) 02/22/17 08:02 Magnesium 1.8 mg/dL (1.6-2.3) 02/22/17 08:02 Total Bilirubin 0.8 mg/dL (0.2-1.3) 02/22/17 08:02 AST 20 U/L (14-36) 02/22/17 08:02 ALT 27 U/L (9-52) 02/22/17 08:02 Alkaline Phosphatase 71 U/L (38-126) 02/22/17 08:02 Total Creatine Kinase 124 U/L (30-135) 02/20/17 04:09 CK-MB (Mass) 0.66 ng/mL (0.0-3.38) 02/20/17 04:09 Troponin I < 0.0120 ng/mL (0.00-0.120) 02/20/17 04:09 NT-Pro-B Natriuret Pep 40.6 pg/mL (0-900) 02/19/17 15:15 Total Protein 7.8 g/dL (6.3-8.3) 02/22/17 08:02 Total Protein (PEP) 6.8 g/dL (6.1-8.1) 02/20/17 07:22 Albumin 4.4 g/dL (3.5-5.0) 02/22/17 08:02 Albumin (PEP) 3.8 g/dL (3.8-4.8) 02/20/17 07:22 Globulin 3.3 gm/dL (2.2-3.9) 02/22/17 08:02 Albumin/Globulin Ratio 1.3 (1.0-2.1) 02/22/17 08:02 Xopht-9-Xnuggjpmd 0.3 g/dL (0.2-0.3) 02/20/17 07:22 Oijrc-5-Chlhkrzhz 0.8 g/dL (0.5-0.9) 02/20/17 07:22 Plal-3-Gpegbmme 0.5 g/dL (0.4-0.6) 02/20/17 07:22 Hlvh-1-Cvlauafr 0.4 g/dL (0.2-0.5) 02/20/17 07:22 Gamma Globulins 1.1 g/dL (0.8-1.7) 02/20/17 07:22 Abnorm Protein Band 1 TEST NOT PERFORMED 02/20/17 07:22 Abnorm Protein Band 2 TEST NOT PERFORMED 02/20/17 07:22 Abnorm Protein Band 3 TEST NOT PERFORMED 02/20/17 07:22 Triglycerides 173 mg/dL (0-149) H 02/20/17 04:09 Cholesterol 127 mg/dL (0-199) 02/20/17 04:09 LDL Cholesterol Direct 53 mg/dL (0-129) 02/20/17 04:09 HDL Cholesterol 47 mg/dL (30-70) 02/20/17 04:09 TSH 3rd Generation 0.63 mIU/L (0.46-4.68) 02/19/17 18:52 YUKO & SPEP Interp See note 02/20/17 07:22 Influenza Typ A,B (EIA) Negative for flu a/b (NEGATIVE) 02/19/17 17:59 - Hospital Course Hospital Course: HPI ( As per admission): This patient is a 66yo F w/ a PMhx of HTN, HLD, DM on Insulin, and strong family history of CAD and from [place] in 50's (Dad , brother with [place] and stroke), previous smoker who is coming into the hospital for a few months duration of left sided chest pain worse with exercise and movement. She states he moves into her left arm, and gets better with rest. However it has been happening more frequently with less and less movement. Patient is currently denying any chest pain, HILL, fevers/chills, N/V/D, dysuria/freq/urg, or lower extremity pain/swelling. Hospital Course: Patient was admitted with consideration of exertional chest pain, r/o [place]. Financial Sales Consultant consult to Dr. Vanegas was placed for cardiac workup due to significant cardiac risk factors. Patient had a cardiac catherization by Dr. Vanegas (02/21/17) and was noted to have a non-obstructing coronaries with a normal ejection fraction. Patient had an uneventful hospital course. Patient has been cleared for discharge by her medical team and she has been instructed to follow with her PMD and circuit design engineer upon discharge. Pertinent imaging: Chest X-ray (02/19/17): Mild bibasilar atelectasis left greater than right. Slight elevation left hemidiaphragm as above. This is a summary of event. For a complete course, please refer to the medical record. Discharge Exam - Head Exam Head Exam: ATRAUMATIC - Eye Exam Eye Exam: EOMI - ENT Exam ENT Exam: Mucous Membranes Moist - Respiratory Exam Respiratory Exam: Clear to PA & Lateral, NORMAL BREATHING PATTERN - Cardiovascular Exam Cardiovascular Exam: REGULAR RHYTHM, +S1, +S2 - GI/Abdominal Exam GI & Abdominal Exam: Normal Bowel Sounds, Soft - Extremities Exam Extremities exam: normal inspection Additional comments: S/P cardiac catherizartion, right groin dressing clean, intact and dry, no hematoma - Neurological Exam Neurological exam: Alert, Oriented x3 - Psychiatric Exam Psychiatric exam: Normal Affect - Skin Skin Exam: Normal Color Discharge Plan - Discharge Medications Prescriptions: Aspirin [Ecotrin] 81 mg PO DAILY 30 Days #30 tabec Atorvastatin [Lipitor] 10 mg PO HS 30 Days #30 tab - Follow Up Plan Condition: FAIR Disposition: HOME/ ROUTINE Additional Instructions: Please discharge patient home as per Dr. Strange Please start the new medications: 1. Lipitor 10mg PO HS 2. Aspirin 81mg PO daily Please resume all your home medications as prescribed Please follow up with your primary care physician within a week Please follow up with Financial Sales Consultant, Dr. Vanegas within two weeks Please return to the hospital or the ED with chest pain, SOB, palpitations, diaphoresis, nausea and vomiting.
[2017-02-22 16:32] VITALS: BP 148/70; PULSE 78; RESP 18; TEMP 98.2; O2SAT 100
--- NOTE | 2017-02-23 15:23 | CARD ---
APPROVED REPORT EKG Measurement Heart [id number] <Conclusion> Normal sinus rhythm Right bundle branch block Abnormal ECG
--- NOTE | 2017-03-12 11:50 | CARDCATH ---
PROCEDURE DATE: 02/21/2017 PROCEDURES: 1. Left heart catheterization. 2. Coronary angiogram. 3. Aortic root angiogram. 4. Radiological supervision and radiological interpretation of the left heart catheterization, coronary angiogram and aortic root angiogram. REFERRING PHYSICIAN: Aquiles Srtange MD. PERFORMING PHYSICIAN: Waqas Vanegas MD. CLINICAL INDICATIONS: 1. Unstable angina. 2. Hypertension. 3. Hyperlipidemia. PROCEDURE: After informed consent, the patient was prepped and draped in the usual sterile fashion. A 2% Lidocaine was given in the right wrist for local anesthesia. Using micropuncture technique, 6-Lithuanian sheath was introduced into the right radial artery. As the patient has a radial loop, the access was switched to right common femoral artery. JL4 6-Lithuanian diagnostic catheter was engaged into left main coronary artery. Contrast injected and left coronary angiogram was performed. JR4 6-Lithuanian diagnostic catheter engaged into right coronary artery. Contrast injected and right coronary angiogram was performed. A 6-Lithuanian pigtail catheter crossed into left ventricle across the aortic valve. LV end diastolic pressure measured. Contrast injected and LV angiogram was performed. Pigtail catheter was pulled back across the aortic valve into aortic root. Contrast injected and aortic root angiogram was performed. The patient tolerated the procedure well. FINDINGS: 1. Left main coronary artery is patent. 2. LAD and diagonal branches are patent. 3. Possible left circumflex 90% eccentric stenosis. Large obtuse marginal 1 branch has a 50% concentric stenosis in the proximal portion. 4. Right coronary artery is dominant and patent. 5. LV ejection fraction of approximately 70%. No wall motion abnormalities noted. EDP is 22. There is no gradient across the aortic valve. 6. Aortic root angiogram demonstrates no aortic dissection or aortic aneurysm. CONCLUSION: 1. Nonobstructive coronary artery disease. Obtuse marginal 1 has 50% concentric stenosis. 2. Normal left ventricular ejection fraction. 3. Normal aortic root. PLAN: Recommend medical management. Waqas Vanegas MD
== END 2017-02-22 18:00 | disposition home or self-care (01) | DRG 287 ==
LOC: C.ER 12:51 → C.9E 17:54 → C.6T 02-20 12:59
PROVIDERS: ADMIT Internal Medicine; ATTEND Internal Medicine
PROC: B2151ZZ Fluoroscopy of Left Heart using Low Osmolar Contrast (ICD-10-PCS; 2017-02-21)
PROC: B2111ZZ Fluoroscopy of Multiple Coronary Arteries using Low Osmolar Contrast (ICD-10-PCS; 2017-02-21)
PROC: B3101ZZ Fluoroscopy of Thoracic Aorta using Low Osmolar Contrast (ICD-10-PCS; 2017-02-21)
PROC: 4A023N7 Measurement of Cardiac Sampling and Pressure, Left Heart, Percutaneous Approach (ICD-10-PCS; principal; 2017-02-21 08:00)
DX: I25.110 Atherosclerotic heart disease of native coronary artery with unstable angina pectoris (principal); E11.9 Type 2 diabetes mellitus without complications; J98.11 Atelectasis; I10 Essential (primary) hypertension; Z87.891 Personal history of nicotine dependence; E78.5 Hyperlipidemia, unspecified; E78.00 Pure hypercholesterolemia, unspecified; Z79.4 Long term (current) use of insulin; Z82.3 Family history of stroke; Z82.49 Family history of ischemic heart disease and other diseases of the circulatory system

== ENCOUNTER 2017-02-24 19:50 | Emergency (ER) | payer MEDICARE ==
[2017-02-24 20:04] VITALS: RESP 18; TEMP 97.8
[2017-02-24] MEDS ORDERED: Sodium Chloride 0.9% 1,000 ML IV ONE (20:45)
[2017-02-24] MEDS ORDERED: (Novolin R) Insulin Human Regular 100 units/ml vial IV ONE (20:53)
--- NOTE | 2017-02-24 20:54 | C.PDOC ---
History Of Present Illness 66 year old female with a Hx of diabetes presents to the ER after patient checked her blood sugar at home and found it was elevated. Patient states she was recently admitted to the hospital and due to the catheterization her diabetes medications were stopped. Patient reports her blood sugar was elevated at the time of her discharge and has not started he previous regiment since the time of her admission. Denies chest pain, nausea, vomiting, or headache. Chief Complaint (Nursing): High Blood Sugar History Per: Patient History/Exam Limitations: no limitations Onset/Duration Of Symptoms: Days Current Symptoms Are (Timing): Still Present Causative (Exacerbating) Factor(s): Missed Taking Medication Associated Infectious Symptoms: denies: Cough, Sore Throat, Sinus Congestion, Dysuria, Urinary Urgency, Urinary Frequency, Nausea, Vomiting, Diarrhea Recent travel outside of the [place]: No Past Medical History Reviewed: Historical Data, Nursing Documentation, Vital Signs Vital Signs: Last Vital Signs Temp 97.8 F 02/24/17 22:36 Pulse 77 02/24/17 22:36 Resp 18 02/24/17 22:36 BP 159/77 H 02/24/17 22:36 Pulse Ox 99 02/24/17 22:36 - Medical History PMH: Asthma (childhood), Diabetes, HTN, Hypercholesterolemia Surgical History: Cholecystectomy - [facility] Procedures CORONAR ARTERIOGR-2 CATH (06/01/01) FLUOROSCOPY OF MULT COR ART USING L OSM CONTRAST (02/19/17) FLUOROSCOPY OF RIGHT AND LEFT HEART USING L OSM CONTRAST (02/19/17) LEFT HEART CARDIAC CATH (06/01/01) LT HEART ANGIOCARDIOGRAM (06/01/01) MEASURE OF CARDIAC SAMPL & PRESSURE, L HEART, PERC APPROACH (02/19/17) Family History: States: Unknown Family Hx - Social History Hx Tobacco Use: No Hx Alcohol Use: No Hx Substance Use: No - Immunization History Hx Tetanus Toxoid Vaccination: No Hx Influenza Vaccination: Yes Hx Pneumococcal Vaccination: Yes Review Of Systems Constitutional: Negative for: Fever, Chills Gastrointestinal: Negative for: Nausea, Vomiting, Diarrhea Neurological: Negative for: Headache Physical Exam - Physical Exam Appears: Non-toxic, No Acute Distress Skin: Normal Color, Warm, Dry Head: Atraumatic, Normacephalic Eye(s): bilateral: Normal Inspection, PERRL, EOMI Oral Mucosa: Moist Neck: Normal, Supple Chest: Symmetrical, No Tenderness Cardiovascular: Rhythm Regular (S1 and S2 within normal limits) Respiratory: Normal Breath Sounds, No Rales, No Rhonchi, No Wheezing Gastrointestinal/Abdominal: Soft, No Tenderness Extremity: Normal ROM (x4), No Pedal Edema Neurological/Psych: Oriented x3, Normal Speech, Other (No focal deficits) ED Course And Treatment - Laboratory Results Result Diagrams: 02/24/17 20:54 02/24/17 20:54 O2 Sat by Pulse Oximetry: 100 (Room air) Pulse Ox Interpretation: Normal Medical Decision Making Medical Decision Making: Blood work and urinalysis ordered. Insulin and IV fluids administered. Will attempt to lower patient's blood sugar back to baseline and start her again on her pervious diabetic regiment. Disposition - Disposition Referrals: Aquiles Strange Jr., MD [Medical Doctor] - Disposition: HOME/ ROUTINE Disposition Time: 21:32 Condition: GOOD Additional Instructions: Resume all meds for DM at prior dosages Forms: [employer] (German) - Clinical Impression Clinical Impression: Hyperglycemia, History of diabetes mellitus - Scribe Statement The provider has reviewed the documentation as recorded by the Scribe Pawel Carrington All medical record entries made by the Scribe were at my direction and personally dictated by me. I have reviewed the chart and agree that the record accurately reflects my personal performance of the history, physical exam, medical decision making, and the department course for this patient. I have also personally directed, reviewed, and agree with the discharge instructions and disposition.
[2017-02-24] MEDS ORDERED: Sodium Chloride 0.9% 1,000 ML ONE (20:55)
[2017-02-24] MEDS ORDERED: (Novolin R) Insulin Human Regular 100 units/ml vial ONE (20:56)
[2017-02-24 20:58] LABS: BASO # 0.1 K/uL (0.0-0.2); EOS # 0.3 K/uL (0.0-0.7); EOS % 5.2 % (0.0-4.0); LYMPH # 2.1 K/uL (1.0-4.3); LYMPH % 33.9 % (20.0-40.0); MEAN CELL VOLUME 83.6 fL (81.0-99.0); MEAN CORPUSCULAR HEMOGLOBIN 27.5 pg (27.0-31.0); MEAN CORPUSCULAR HGB CONC 32.8 g/dL (33.0-37.0); MEAN PLATELET VOLUME 8.8 fL (7.2-11.7); MONO # 0.5 K/uL (0.0-0.8); MONO % 7.7 % (0.0-10.0); RED CELL DISTRIBUTION WIDTH 13.3 % (11.5-14.5); WHITE BLOOD COUNT 6.1 K/uL (4.8-10.8)
[2017-02-24 21:02] LABS: RBC URINE 2 /hpf (0-3); TRANSITIONAL EPITHIAL < 1 /hpf (0-3); URINE BACTERIA FEW (<OCC); URINE BILIRUBIN NEGATIVE (NEGATIVE); URINE BLOOD NEGATIVE (NEGATIVE); URINE COLOR Straw (YELLOW); URINE GLUCOSE (UA) 3+ mg/dL (Normal); URINE KETONE NEGATIVE (NEGATIVE); URINE LEUKOCYTE ESTERASE 3+ Leu/uL (Negative); URINE PROTEIN NEGATIVE (NEGATIVE); URINE UROBILINOGEN NORMAL mg/dL (0.2-1.0); WBC URINE 18 /hpf (0-5)
[2017-02-24 21:21] LABS: ALB/GLOB RATIO 1.4 (1.0-2.1); ALKALINE PHOSPHATASE 64 U/L (38-126); ALT/SGPT 40 U/L (9-52); AST/SGOT 23 U/L (14-36); BILIRUBIN,TOTAL 0.7 mg/dL (0.2-1.3); BLOOD UREA NITROGEN 25 mg/dL (7-17); CALCIUM 8.5 mg/dl (8.6-10.4); CARBON DIOXIDE 24 mmol/L (22-30); CHLORIDE 97 mmol/L (98-107); GFR AFRICAN-AMERICAN 49; GLUCOSE,RANDOM 364 mg/dL (65-105); POTASSIUM 4.8 mmol/L (3.6-5.2); SODIUM 132 mmol/L (132-148); TOTAL PROTEIN 7.2 g/dL (6.3-8.3)
[2017-02-24 22:37] VITALS: BP 159/77; PULSE 77
[2017-02-25 01:55] VITALS: O2SAT 100
== END 2017-02-24 22:36 | disposition home or self-care (01) ==
LOC: C.ER 19:50
DX: E11.65 Type 2 diabetes mellitus with hyperglycemia (principal); I10 Essential (primary) hypertension; E78.00 Pure hypercholesterolemia, unspecified
CPT/HCPCS: 80053; 81001; 82009; 82948; 85025; 96360; 99285; J7040

== ENCOUNTER 2017-08-29 15:43 | Emergency (ER) | payer MEDICARE ==
--- NOTE | 2017-08-29 16:58 | C.PDOC ---
History Of Present Illness 67 year old female presents to the ED for evaluation of a lump to the roof of her mouth for several months. Patient states pain to the area has increased for the past 3-4 days. Patient denies fever, chills, drainage. Time Seen by Provider: 08/29/17 16:04 Chief Complaint (Nursing): Abnormal Skin Integrity History Per: Patient History/Exam Limitations: no limitations Onset/Duration Of Symptoms: Days (3-4) Current Symptoms Are (Timing): Worse Quality Of Symptoms: Painful Additional History Per: Patient Past Medical History Reviewed: Historical Data, Nursing Documentation, Vital Signs Vital Signs: Last Vital Signs Temp 98.6 F 08/29/17 17:05 Pulse 74 08/29/17 17:05 Resp 18 08/29/17 17:05 BP 133/69 08/29/17 17:05 Pulse Ox 100 08/29/17 22:17 - Medical History PMH: Asthma (childhood), Diabetes, HTN, Hypercholesterolemia Surgical History: Cholecystectomy - [facility] Procedures CORONAR ARTERIOGR-2 CATH (06/01/01) FLUOROSCOPY OF LEFT HEART USING LOW OSMOLAR CONTRAST (02/19/17) FLUOROSCOPY OF MULT COR ART USING L OSM CONTRAST (02/19/17) FLUOROSCOPY OF THORACIC AORTA USING LOW OSMOLAR CONTRAST (02/19/17) LEFT HEART CARDIAC CATH (06/01/01) LT HEART ANGIOCARDIOGRAM (06/01/01) MEASURE OF CARDIAC SAMPL & PRESSURE, L HEART, PERC APPROACH (02/19/17) Family History: States: Unknown Family Hx - Social History Hx Tobacco Use: No Hx Alcohol Use: No Hx Substance Use: No - Immunization History Hx Tetanus Toxoid Vaccination: No Hx Influenza Vaccination: Yes Hx Pneumococcal Vaccination: Yes Review Of Systems ENT: Positive for: Mouth Pain (painful lump to roof of mouth ) Physical Exam - Physical Exam Appears: Non-toxic, No Acute Distress Skin: Normal Color, Warm, Dry Head: Atraumatic, Normacephalic Eye(s): bilateral: Normal Inspection Oral Mucosa: Moist, Other (approximately 1.5cm hard growth to hard palate of mouth. no evidence of erythema, swelling or fluctuance ) Neck: Normal ROM, Supple Extremity: Normal ROM, Capillary Refill (less than 2 seconds ) Neurological/Psych: Oriented x3, Normal Speech, Normal Cognition ED Course And Treatment O2 Sat by Pulse Oximetry: 100 (on RA) Pulse Ox Interpretation: Normal Medical Decision Making Medical Decision Making: Patient with growth to the roof of the mouth. No evidence of abscess or infection but patient is requesting antibiotics. The patient was instructed she needs to follow up with oral surgeon for removal and biopsy. Disposition - Disposition Referrals: Tamela Crocker DMD [Staff Provider] - Thao Lainez DMD [Staff Provider] - Laith Roberto DDS [Non-Staff] - Felicity Watt DMD, DMD [Non-Staff] - Abel Lopez DMD [Non-Staff] - Disposition: HOME/ ROUTINE Disposition Time: 16:58 Condition: GOOD Additional Instructions: Follow up with the oral surgeon within 1-2 days without fail. Return if worsened. 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 - Scribe Statement The provider has reviewed the documentation as recorded by the Scribe (Elvia Ingram) All medical record entries made by the Scribe were at my direction and personally dictated by me. I have reviewed the chart and agree that the record accurately reflects my personal performance of the history, physical exam, medical decision making, and the department course for this patient. I have also personally directed, reviewed, and agree with the discharge instructions and disposition.
[2017-08-29 17:20] VITALS: BP 133/69; PULSE 74; RESP 18; TEMP 98.6
[2017-08-29 22:17] VITALS: O2SAT 100
== END 2017-08-29 17:05 | disposition home or self-care (01) ==
LOC: C.ER 15:43
DX: D16.9 Benign neoplasm of bone and articular cartilage, unspecified (principal)

== ENCOUNTER 2017-10-02 00:49 | Inpatient (IN) | payer MEDICARE ==
[2017-10-02] MEDS ORDERED: Aspirin 325 mg EC Tablets PO STA (01:11)
--- NOTE | 2017-10-02 01:19 | C.PDOC ---
History Of Present Illness 67 year old female with PMHx of non insulin dependant DM presents to the ED c/o feeling chest pressure associated with palpitations that woke her up from sleep tonight. Patient states at the beginning her pain was 10/10 now is 8/10. Patient states she had a cath done 2 years ago and as per patient " it was negative". Patient denies diaphoresis, fever, chills, nausea, vomit, diarrhea, weakness, numbness. Chief Complaint (Nursing): Chest Pain History Per: Patient History/Exam Limitations: no limitations Onset/Duration Of Symptoms: Hrs Current Symptoms Are (Timing): Still Present Severity: Moderate Pain Scale Rating Of: 8 Quality: "Pain" Associated Symptoms: denies: Diaphoresis Alleviating Factors: None Recent travel outside of the [place]: No Additional History Per: Patient Past Medical History Reviewed: Historical Data, Nursing Documentation, Vital Signs Vital Signs: Last Vital Signs Temp 97.9 F 10/02/17 00:57 Pulse 82 10/02/17 02:44 Resp 20 10/02/17 02:44 BP 158/79 H 10/02/17 02:44 Pulse Ox 100 10/02/17 02:44 - Medical History PMH: Asthma, Diabetes, HTN, Hypercholesterolemia Surgical History: Cholecystectomy - [facility] Procedures CORONAR ARTERIOGR-2 CATH (06/01/01) FLUOROSCOPY OF LEFT HEART USING LOW OSMOLAR CONTRAST (02/19/17) FLUOROSCOPY OF MULT COR ART USING L OSM CONTRAST (02/19/17) FLUOROSCOPY OF THORACIC AORTA USING LOW OSMOLAR CONTRAST (02/19/17) LEFT HEART CARDIAC CATH (06/01/01) LT HEART ANGIOCARDIOGRAM (06/01/01) MEASURE OF CARDIAC SAMPL & PRESSURE, L HEART, PERC APPROACH (02/19/17) Family History: States: Unknown Family Hx - Social History Hx Tobacco Use: No Hx Alcohol Use: No Hx Substance Use: No - Immunization History Hx Tetanus Toxoid Vaccination: No Hx Influenza Vaccination: Yes Hx Pneumococcal Vaccination: Yes Review Of Systems Constitutional: Negative for: Fever, Chills Cardiovascular: Positive for: Chest Pain, Palpitations Respiratory: Negative for: Shortness of Breath Gastrointestinal: Negative for: Nausea, Vomiting Skin: Negative for: Rash Neurological: Negative for: Weakness, Numbness, Headache, Dizziness Physical Exam - Physical Exam Appears: Non-toxic, No Acute Distress Skin: Normal Color, Warm, Dry Head: Atraumatic, Normacephalic Eye(s): bilateral: Normal Inspection Ear(s): Bilateral: Normal Nose: No Discharge Oral Mucosa: Moist Throat: Normal, No Erythema, No Exudate Neck: Normal ROM, Supple Chest: Symmetrical, No Tenderness Cardiovascular: Rhythm Regular Respiratory: Normal Breath Sounds, No Rales, No Rhonchi, No Wheezing Gastrointestinal/Abdominal: Soft, No Tenderness, No Guarding, No Rebound Extremity: Normal ROM, No Tenderness, No Swelling Neurological/Psych: Oriented x3, Normal Speech, Normal Cognition, Normal Motor, Normal Sensation Gait: Steady ED Course And Treatment - Laboratory Results Result Diagrams: 10/02/17 01:33 10/02/17 01:33 ECG: Interpreted By Me, Viewed By Me ECG Rhythm: Sinus Rhythm, R BBB (unchanged from 09/2016 old ekg) ECG Interpretation: No Acute Changes (ST/T wave) Interpretation Of ECG: left axis deviation Rate From EC (BPM) O2 Sat by Pulse Oximetry: 95 (ON RA) Pulse Ox Interpretation: Normal Medical Decision Making Medical Decision Making: Impression: DM with chest pain Plan: * EKG * CXR * Labs * aspirin 325 mg PO * nitro 0.4 mg SL Possible ACS, patient possibly will be admitted for observation.Pt's SSCP was relieved after SLNTG times 1.Enzymes neg,will admit to Dr Charlie Ingram Disposition - Disposition Disposition: HOSPITALIZED Disposition Time: 04:03 Condition: GUARDED - Clinical Impression Clinical Impression: Acute coronary syndrome - Scribe Statement The provider has reviewed the documentation as recorded by the Scribe Preet Aparicio All medical record entries made by the Scribe were at my direction and personally dictated by me. I have reviewed the chart and agree that the record accurately reflects my personal performance of the history, physical exam, medical decision making, and the department course for this patient. I have also personally directed, reviewed, and agree with the discharge instructions and disposition.
[2017-10-02 01:36] LABS: BASO % 0.4 % (0.0-2.0); EOS # 0.2 K/uL (0.0-0.7); EOS % 3.6 % (0.0-4.0); HEMOGLOBIN 11.8 g/dL (11.0-16.0); LYMPH # 1.9 K/uL (1.0-4.3); LYMPH % 33.9 % (20.0-40.0); MEAN CELL VOLUME 82.5 fL (81.0-99.0); MEAN CORPUSCULAR HGB CONC 33.9 g/dL (33.0-37.0); MEAN PLATELET VOLUME 8.4 fL (7.2-11.7); MONO # 0.4 K/uL (0.0-0.8); MONO % 7.3 % (0.0-10.0); NEUT # 3.1 K/uL (1.8-7.0); NEUT % 54.8 % (50.0-75.0); RBC 4.23 Mil/uL (3.80-5.20); RED CELL DISTRIBUTION WIDTH 13.3 % (11.5-14.5); WHITE BLOOD COUNT 5.6 K/uL (4.8-10.8)
[2017-10-02 01:56] LABS: ALB/GLOB RATIO 1.4 (1.0-2.1); ALBUMIN 4.6 g/dL (3.5-5.0); ALT/SGPT 25 U/L (9-52); AST/SGOT 19 U/L (14-36); BLOOD UREA NITROGEN 21 mg/dL (7-17); CALCIUM 9.6 mg/dl (8.6-10.4); GFR AFRICAN-AMERICAN > 60; GFR NON-AFRICAN AMERICAN 55
[2017-10-02] MEDS ORDERED: Nitroglycerin 2% Ointment Foilpak UD TOP STA (02:01)
[2017-10-02 02:07] LABS: B-TYPE NATRIURETIC PEPTIDE 132 pg/mL (0-900)
[2017-10-02] MEDS ORDERED: Nitroglycerin 2% Ointment Foilpak UD TOP ONE (02:18)
[2017-10-02] MEDS ORDERED: DiphenhydrAMINE 50 mg/ml Inj IVP STA (02:50)
[2017-10-02] MEDS ORDERED: DiphenhydrAMINE 50 mg/ml Inj ONE (03:01)
--- NOTE | 2017-10-02 07:37 | CP.PCM.PN ---
<Lizzie Sin - Last Filed: 10/02/17 14:47> Subjective - Date & Time of Evaluation Date of Evaluation: 10/02/17 Time of Evaluation: 07:36 - Subjective Subjective: Internal Medicine Progress Note - Dr Charlie Ingram Service Patient seen and examined at bedside. Patient reports that last night when she laying down last night she started to experience chest tightness. Patient currently states that she is doing well, states that chest tightness has improved. She is ambulating and tolerating diet. Offers no complaints at this time. Admits to having a headache, denies dizziness, cp, palpitations, sob, abdominal pain, urinary symptoms, changes in bowel habits. Objective - Vital Signs/Intake and Output Vital Signs (last 24 hours): Temp Pulse Resp BP Pulse Ox 97.9 F 89 17 156/86 H 97 10/02/17 00:57 10/02/17 06:40 10/02/17 06:40 10/02/17 06:40 10/02/17 06:40 - Labs Labs: 10/02/17 01:33 10/02/17 01:33 - Constitutional Appears: Non-toxic, No Acute Distress - Head Exam Head Exam: ATRAUMATIC, NORMAL INSPECTION, NORMOCEPHALIC - Eye Exam Eye Exam: EOMI, Normal appearance Pupil Exam: NORMAL ACCOMODATION - ENT Exam ENT Exam: Mucous Membranes Moist - Neck Exam Neck Exam: Full ROM - Respiratory Exam Respiratory Exam: Clear to Ausculation Bilateral, NORMAL BREATHING PATTERN. absent: Rales, Rhonchi, Wheezes - Cardiovascular Exam Cardiovascular Exam: REGULAR RHYTHM, +S1, +S2 - GI/Abdominal Exam GI & Abdominal Exam: Soft, Normal Bowel Sounds. absent: Guarding, Rigid, Tenderness, Hyperactive Bowel Sounds - Extremities Exam Extremities Exam: Full ROM, Normal Capillary Refill, Normal Inspection - Back Exam Back Exam: NORMAL INSPECTION - Neurological Exam Neurological Exam: Alert, Awake, CN II-XII Intact, Oriented x3 - Psychiatric Exam Psychiatric exam: Normal Affect, Normal Mood - Skin Skin Exam: Dry, Normal Color, Warm Assessment and Plan - Assessment and Plan (Free Text) Assessment: A/P: 67 year old female with past medical history of Diabetes Mellitus, HTN, HLD presented to the ED with chest tightness and shortness of breath. Chest pain r/o ACS -Stable, afebrile -Will monitor on telemetry -Patient has strong family history of CAD, CA -Patient received Aspirin 325mg PO x 1 dose and Nitro in the ED -Continue Aspirin 81mg PO daily -Troponin negative x 2, third troponin pending -EKG: NSR with RBBB -Cardiac Catherization 01/2017 showed non-obstructing coronaries -Cardiology on consult, help appreciated Elevated D-Dimer -D dimer on admission 4277 -CTA was negative for pulmonary embolism History of Diabetes Mellitus -HgbA1C 9.1 -Low dose ISS with Accuchecks ACHS -Will hold oral hyperglycemic agents at this -Resume home insulin regimen -Hypogylcemia protocol History of Hypertension -BP was elevated upon arrival to the ED 216/100 -Hydralazine 10mg Q6H prn SBP > 170 -Patient is on Ramipril 10mg PO BID at home -Will start Lisinopril 20mg PO daily while in the hospital -Monitor Vital signs History of Hyperlipidemia -Lipid panel within normal limits -On Lipitor 10mg PO HS at home -While inhouse, will start Crestor 5mg PO daily GI/DVT ppx: -Protonix 40mg IVP daily -Lovenox 40mg SC daily Plan discussed with Dr Charlie Sin DO PGY-2 <Marcel Ingram S - Last Filed: 10/03/17 18:39> Objective - Vital Signs/Intake and Output Vital Signs (last 24 hours): Temp Pulse Resp BP Pulse Ox 98.0 F 85 20 123/79 98 10/03/17 15:01 10/03/17 17:05 10/03/17 15:01 10/03/17 15:01 10/03/17 15:01 Intake and Output: 10/03/17 10/03/17 06:59 18:59 Intake Total 400 Balance 400 - Medications Medications: Current Medications Acetaminophen (Tylenol 325mg Tab) 650 mg PO Q6 PRN PRN Reason: Headache Aspirin (Ecotrin) 81 mg PO DAILY [facility] Last Admin: 10/03/17 10:19 Dose: 81 mg Dextrose (Dextrose 50% Inj) 0 ml IV STAT PRN; Protocol PRN Reason: Hypoglycemia Protocol Dextrose (Glutose 15) 0 gm PO ONCE PRN; Protocol PRN Reason: Hypoglycemia Protocol Glipizide (Glucotrol Xl) 5 mg PO DAILY [facility] Last Admin: 10/03/17 10:19 Dose: 5 mg Glipizide (Glucotrol Xl) 15 mg PO HS [facility] Last Admin: 10/02/17 21:28 Dose: 15 mg Glucagon (Glucagen Diagnostic Kit) 0 mg IM STAT PRN; Protocol PRN Reason: Hypoglycemia Protocol Heparin Sodium (Porcine) (Heparin) 5,000 units SC Q12 DANIEL Hydralazine HCl (Apresoline) 10 mg IVP Q6H PRN PRN Reason: Systolic Blood Pressure Last Admin: 10/02/17 14:55 Dose: 10 mg Dextrose (Dextrose 5% In Water 1000 Ml) 1,000 mls @ 0 mls/hr IV .Q0M PRN; Protocol; Per Protocol PRN Reason: Hypoglycemia Protocol Sodium Chloride (Sodium Chloride 0.9%) 1,000 mls @ 80 mls/hr IV .[id number] [facility] Last Admin: 10/03/17 10:55 Dose: 80 mls/hr Insulin Aspart (Novolog) 6 unit SC AC [facility] Last Admin: 10/03/17 17:40 Dose: 6 unit Insulin Aspart (Novolog) 0 unit SC ACHS [facility] PRN Reason: Protocol Last Admin: 10/03/17 17:40 Dose: 1 unit Insulin Human NPH (Novolin N) 12 unit SC HS [facility] Last Admin: 10/02/17 21:27 Dose: 12 unit Lisinopril (Zestril) 20 mg PO DAILY [facility] Last Admin: 10/03/17 10:19 Dose: 20 mg Metformin HCl (Glucophage) 1,000 mg PO BID [facility] Last Admin: 10/03/17 17:39 Dose: 1,000 mg Pantoprazole Sodium (Protonix Inj) 40 mg IVP DAILY [facility] Last Admin: 10/03/17 10:19 Dose: 40 mg Rosuvastatin Calcium (Crestor) 5 mg PO HS [facility] Last Admin: 10/02/17 21:29 Dose: 5 mg - Labs Labs: 10/03/17 08:53 10/03/17 08:53 Attending/Attestation - Attestation I have personally seen and examined this patient.: Yes I have fully participated in the care of the patient.: Yes I have reviewed all pertinent clinical information, including history, physical exam and plan: Yes Notes (Text): 10/03/17 18:39 Admitted with the chest pain with a history of diabetes seen by heart doctor case seen and [facility] staff and resident, concurred with finding and management..
--- NOTE | 2017-10-02 09:41 | CT ---
PROCEDURE: CT Chest with contrast (Pulmonary Angiogram) HISTORY: Chest pain COMPARISON: None available. TECHNIQUE: Axial computed tomography images were obtained of the chest in the pulmonary arterial phase of enhancement. Coronal and sagittal reformatted images were created and reviewed. Intravenous contrast dose: 100 mL Visipaque 320 Radiation dose: Total exam DLP = 399.25 mGy-cm. This CT exam was performed using one or more of the following dose reduction techniques: Automated exposure control, adjustment of the mA and/or kV according to patient size, and/or use of iterative reconstruction technique. FINDINGS: PULMONARY ARTERIES: There are no filling defects in the pulmonary arteries to suggest acute pulmonary embolism. AORTA: No acute findings. No thoracic aortic aneurysm. LUNGS: The lungs are well inflated. There is linear atelectasis/ scarring in the inferior lingula. No nodule, mass or pulmonary consolidation. PLEURAL SPACES: No effusion or pneumothorax. HEART: No cardiomegaly. No significant pericardial effusion. LYMPH NODES: No lymphadenopathy. BONES, CHEST WALL: Within normal limits for the patient's age. No fracture or destructive lesion OTHER FINDINGS: Unremarkable. IMPRESSION: No CT evidence for acute pulmonary embolus. Clear lungs. A preliminary report was provided by [employer] services.
[2017-10-02 09:43] LABS: HDL CHOLESTEROL 51 mg/dL (30-70)
--- NOTE | 2017-10-02 09:50 | RAD ---
PROCEDURE: CHEST RADIOGRAPH, 1 VIEW HISTORY: chest pain COMPARISON: 02/19/2017. FINDINGS: LUNGS: The lungs are well inflated. There is linear scarring in the left lower lobe. PLEURA: No pneumothorax or pleural fluid seen. CARDIOVASCULAR: Normal. OSSEOUS STRUCTURES: No significant abnormalities. VISUALIZED UPPER ABDOMEN: Normal. OTHER FINDINGS: None. IMPRESSION: No active pulmonary disease.
[2017-10-02 09:54] LABS: LDL CHOLESTEROL 71 mg/dL (0-129)
[2017-10-02] MEDS: (Novolin R) Insulin Human Regular 100 units/ml vial SC SCH ×3 (12:20→21:27)
[2017-10-02] MEDS ORDERED: (Novolin R) Insulin Human Regular 100 units/ml vial ONE (12:22)
[2017-10-02] MEDS ORDERED: Dextrose 50% SYRINGE Inj (50 ml) IV PRN (14:49)
[2017-10-02] MEDS ORDERED: Glucagon Recombinant 1 mg Inj IM PRN (14:49)
--- NOTE | 2017-10-02 16:02 | CP.PCM.CON ---
<Ashley Allen - Last Filed: 10/02/17 16:31> History of Present Illness - History of Present Illness History of Present Illness: Cardiology Consult for Dr. Vanegas Pt is a 67 year old female, with a PMHx of IDDM, HTN, HLD, GERD, who presented to the ED with acute onset non- radiating non-exertional 10/10 mid- sternal chest tightness that began at 2300. Pt describes going to [place] and walking downtown with her friends earlier that day. At home, she played with her granddaughter, ate oatmeal, took her evening medications (including 81 mg PO Aspirin and insulin) and changed into her pajamas without any symptoms. Episode began shortly after laying down for bed. She states that she was tossing and turning while trying to fall asleep, when she turned and something hit me. She began to experience chest tightness and felt very upset. She describes crying, but she was not certain as to why. She called for her daughter , who checked her BP with an at-home machine, resulting 200/140. She was scared to take anything for symptoms, but she was very concerned about the pain and severity so she asked her daughter to call her an Uber so that she could get to the ED. Upon her arrival she was given sublingual nitroglycerin, which helped resolve symptoms. She reports that she also had CT chest with contrast performed , for which she was given Benadryl and another medication prior due to contrast dye allergy. She reports that she was extremely drowsy while she was having the CT performed due to the Benadryl. Pt denies experiencing similar symptoms in the past, SOB, dyspnea, jaw pain, shoulder pain, dizziness, and diaphoresis. No other acute complaints at this time. She is concerned as to what caused her symptoms at this time. Pt notes that she f/u with Dr. Vanegas (cardiology) every 3 months. Her next appointment is scheduled for October 2017. She had a stress test and cath performed January 2017 which showed non-obstructing coronaries with a normal ejection fraction. Also, she reports that she was on Metoprolol in the past, but that medication was stopped by Dr. Vanegas after her blood pressure readings were WNL. Allergies: Contrast dye and Flagyl (metronidazole)- anaphylaxis PMHx: IDDM, HTN, HLD, GERD, Vertigo Past surgical Hx: Cholecystectomy (1970), Tubal ligation (1979), Hysterectomy ( unsure of date; >10 years ago), Colostomy bag placement (1998), Colostomy bag reversal (1999), Appendectomy (unsure; >5 years), Hiatal hernia (unsure; >5 years) Family hx: Father: due to NM at 55 y/o Paternal Aunt: , heart problems (pt uncertain about details) Brother: 3 strokes beginning when he was in his 50s Mother: due to brain tumor Social: Denies alcohol, tobacco, drug use Exercise: walks a lot, walks for >20 minutes a day Diet: Eats fruits and vegetables. Tries to eat well balanced diet , Retired: worked in [employer] services at [employer] for 21 years, Lives alone and is able to perform all ADL without assistance 3 children, 5 granddaughters, 2 great granddaughters with her [address]rd on [address] Home Medications: Novolog, Humulin, Metformin, Ramipril, Glipizide, Rosuvastatin (Crestor), 81 mg PO Aspirin at bedtime, Medication for GERD but uncertain of name, Recently discontinued medication for vertigo Review of Systems - Constitutional Constitutional: absent: Chills, Fever - EENT Eyes: absent: Blurred Vision - Cardiovascular Cardiovascular: Chest Pain. absent: Diaphoresis, Dyspnea, Leg Edema, Palpitations - Respiratory Respiratory: absent: Cough, Chest Congestion - Gastrointestinal Gastrointestinal: absent: Abdominal Pain, Constipation, Diarrhea, Nausea, Vomiting - Genitourinary Genitourinary: absent: Difficulty Urinating, Dysuria - Musculoskeletal Musculoskeletal: absent: Numbness, Tingling - Integumentary Integumentary: absent: Rash - Neurological Neurological: absent: Dizziness, Tingling - Psychiatric Psychiatric: Anxiety Past Patient History - Infectious Disease Hx of Infectious Diseases: None - Past Medical History & Family History Past Medical History?: Yes - Past Social History Smoking Status: Former Smoker - CARDIAC Hx Hypercholesterolemia: Yes Hx Hypertension: Yes - PULMONARY Hx Asthma: Yes - ENDOCRINE/METABOLIC Hx Diabetes Mellitus Type 2: Yes - HEMATOLOGICAL/ONCOLOGICAL Hx Blood Disorders: No - INTEGUMENTARY Hx Dermatological Problems: No - MUSCULOSKELETAL/RHEUMATOLOGICAL Hx Falls: No - GASTROINTESTINAL Hx Gastrointestinal Disorders: No Hx Colostomy: Yes (x1 year w/ reversal) - GENITOURINARY/GYNECOLOGICAL Hx Genitourinary Disorders: No - PSYCHIATRIC Hx Substance Use: No - SURGICAL HISTORY Hx Cholecystectomy: Yes - ANESTHESIA Hx Anesthesia: Yes Hx Anesthesia Reactions: No Hx Malignant Hyperthermia: No Meds Allergies/Adverse Reactions: Allergies Allergy/AdvReac Type Severity Reaction Status Date / Time metronidazole [From Flagyl] Allergy Verified 10/02/17 01:01 contrast dye Allergy Uncoded 10/02/17 01:01 - Medications Medications: Current Medications Acetaminophen (Tylenol 325mg Tab) 650 mg PO Q6 PRN PRN Reason: Headache Aspirin (Ecotrin) 81 mg PO DAILY [facility] Dextrose (Dextrose 50% Inj) 0 ml IV STAT PRN; Protocol PRN Reason: Hypoglycemia Protocol Dextrose (Glutose 15) 0 gm PO ONCE PRN; Protocol PRN Reason: Hypoglycemia Protocol Enoxaparin Sodium (Lovenox) 40 mg SC DAILY [facility] Glucagon (Glucagen Diagnostic Kit) 0 mg IM STAT PRN; Protocol PRN Reason: Hypoglycemia Protocol Hydralazine HCl (Apresoline) 10 mg IVP Q6H PRN PRN Reason: Systolic Blood Pressure Last Admin: 10/02/17 14:55 Dose: 10 mg Dextrose (Dextrose 5% In Water 1000 Ml) 1,000 mls @ 0 mls/hr IV .Q0M PRN; Protocol; Per Protocol PRN Reason: Hypoglycemia Protocol Insulin Aspart (Novolog) 6 unit SC AC [facility] Insulin Human NPH (Novolin N) 12 unit SC HS [facility] Insulin Human Regular (Novolin R) 0 unit SC ACHS [facility] PRN Reason: Protocol Last Admin: 10/02/17 12:20 Dose: 6 units Lisinopril (Zestril) 20 mg PO DAILY [facility] Pantoprazole Sodium (Protonix Inj) 40 mg IVP DAILY [facility] Last Admin: 10/02/17 09:17 Dose: 40 mg Rosuvastatin Calcium (Crestor) 5 mg PO HS [facility] Physical Exam - Constitutional Appears: Non-toxic, No Acute Distress - Head Exam Head Exam: ATRAUMATIC, NORMAL INSPECTION, NORMOCEPHALIC - Eye Exam Eye Exam: EOMI, Normal appearance - ENT Exam ENT Exam: Mucous Membranes Moist - Respiratory Exam Respiratory Exam: Clear to Auscultation Bilateral, NORMAL BREATHING PATTERN. absent: Rales, Rhonchi, Wheezes, Stridor - Cardiovascular Exam Cardiovascular Exam: REGULAR RHYTHM, RRR, +S1, +S2 - GI/Abdominal Exam GI & Abdominal Exam: Normal Bowel Sounds, Soft. absent: Tenderness - Extremities Exam Extremities exam: Positive for: normal inspection. Negative for: tenderness - Neurological Exam Neurological exam: Alert, Oriented x3 - Psychiatric Exam Psychiatric exam: Normal Affect, Normal Mood - Skin Skin Exam: Intact, Normal Color, Warm Results - Vital Signs Recent Vital Signs: Last Vital Signs Temp 97.8 F 10/02/17 15:31 Pulse 97 H 10/02/17 15:31 Resp 18 10/02/17 15:31 BP 170/83 H 10/02/17 15:31 Pulse Ox 96 10/02/17 15:31 - Labs Result Diagrams: 10/02/17 01:33 10/02/17 01:33 Labs: Laboratory Results - last 24 hr 10/02/17 10/02/17 10/02/17 01:33 01:33 01:33 WBC 5.6 RBC 4.23 Hgb 11.8 Hct 34.9 MCV 82.5 MCH 28.0 MCHC 33.9 RDW 13.3 Plt Count 223 MPV 8.4 Neut % (Auto) 54.8 Lymph % (Auto) 33.9 [place] % (Auto) 7.3 Eos % (Auto) 3.6 Baso % (Auto) 0.4 Neut # (Auto) 3.1 Lymph # (Auto) 1.9 [place] # (Auto) 0.4 Eos # (Auto) 0.2 Baso # (Auto) 0.0 D-Dimer, Quantitative 4277 H Sodium 142 Potassium 4.5 Chloride 104 Carbon Dioxide 23 Anion Gap 20 BUN 21 H Creatinine 1.0 Est GFR ( Amer) > 60 Est GFR (Non-Af Amer) 55 POC Glucose (mg/dL) Random Glucose 201 H Hemoglobin A1c Calcium 9.6 Total Bilirubin 0.5 AST 19 ALT 25 Alkaline Phosphatase 84 Troponin I < 0.0120 NT-Pro-B Natriuret Pep 132 Total Protein 7.8 Albumin 4.6 Globulin 3.2 Albumin/Globulin Ratio 1.4 Triglycerides Cholesterol LDL Cholesterol Direct HDL Cholesterol TSH 3rd Generation Cancelled 10/02/17 10/02/17 10/02/17 09:23 09:23 12:18 WBC RBC Hgb Hct MCV MCH MCHC RDW Plt Count MPV Neut % (Auto) Lymph % (Auto) [place] % (Auto) Eos % (Auto) Baso % (Auto) Neut # (Auto) Lymph # (Auto) [place] # (Auto) Eos # (Auto) Baso # (Auto) D-Dimer, Quantitative Sodium Potassium Chloride Carbon Dioxide Anion Gap BUN Creatinine Est GFR ( Amer) Est GFR (Non-Af Amer) POC Glucose (mg/dL) 407 H* Random Glucose Hemoglobin A1c 9.1 H Calcium Total Bilirubin AST ALT Alkaline Phosphatase Troponin I < 0.0120 NT-Pro-B Natriuret Pep Total Protein Albumin Globulin Albumin/Globulin Ratio Triglycerides 62 D Cholesterol 154 LDL Cholesterol Direct 71 HDL Cholesterol 51 TSH 3rd Generation 0.48 Assessment & Plan - Assessment and Plan (Free Text) Assessment: Chest Pain r/o ACS Troponin I neg x 2, f/u next troponin D Dimer 4277, CTA: negative for PE EKG: RBBB, HR 89 Meds: Aspirin 81mg po daily Hydralazine 10mg ivp q6h prn Lisinopril 20mg po daily Crestor 5mg po HS DMII Novolog 6 u sc AC Novolin 12 u SC HS ISS Accuchecks hypoglycemic protocol Plans discussed with Dr. Vanegas <Waqas Vanegas - Last Filed: 10/02/17 22:45> Meds - Medications Medications: Current Medications Acetaminophen (Tylenol 325mg Tab) 650 mg PO Q6 PRN PRN Reason: Headache Aspirin (Ecotrin) 81 mg PO DAILY [facility] Dextrose (Dextrose 50% Inj) 0 ml IV STAT PRN; Protocol PRN Reason: Hypoglycemia Protocol Dextrose (Glutose 15) 0 gm PO ONCE PRN; Protocol PRN Reason: Hypoglycemia Protocol Enoxaparin Sodium (Lovenox) 40 mg SC DAILY [facility] Glipizide (Glucotrol Xl) 5 mg PO DAILY [facility] Glipizide (Glucotrol Xl) 15 mg PO HS [facility] Last Admin: 10/02/17 21:28 Dose: 15 mg Glucagon (Glucagen Diagnostic Kit) 0 mg IM STAT PRN; Protocol PRN Reason: Hypoglycemia Protocol Hydralazine HCl (Apresoline) 10 mg IVP Q6H PRN PRN Reason: Systolic Blood Pressure Last Admin: 10/02/17 14:55 Dose: 10 mg Dextrose (Dextrose 5% In Water 1000 Ml) 1,000 mls @ 0 mls/hr IV .Q0M PRN; Protocol; Per Protocol PRN Reason: Hypoglycemia Protocol Insulin Aspart (Novolog) 6 unit SC AC [facility] Last Admin: 10/02/17 17:12 Dose: 6 unit Insulin Human NPH (Novolin N) 12 unit SC HS [facility] Last Admin: 10/02/17 21:27 Dose: 12 unit Insulin Human Regular (Novolin R) 0 unit SC ACHS [facility] PRN Reason: Protocol Last Admin: 10/02/17 21:27 Dose: 2 units Lisinopril (Zestril) 20 mg PO DAILY [facility] Last Admin: 10/02/17 15:58 Dose: 20 mg Metformin HCl (Glucophage) 1,000 mg PO BID [facility] Pantoprazole Sodium (Protonix Inj) 40 mg IVP DAILY [facility] Last Admin: 10/02/17 09:17 Dose: 40 mg Rosuvastatin Calcium (Crestor) 5 mg PO HS [facility] Last Admin: 10/02/17 21:29 Dose: 5 mg Results - Vital Signs Recent Vital Signs: Last Vital Signs Temp 98 F 10/02/17 16:00 Pulse 89 10/02/17 16:09 Resp 20 10/02/17 16:00 BP 178/90 H 10/02/17 16:00 Pulse Ox 98 10/02/17 16:00 - Labs Result Diagrams: 10/02/17 01:33 10/02/17 01:33 Labs: Laboratory Results - last 24 hr 10/02/17 10/02/17 10/02/17 01:33 01:33 01:33 WBC 5.6 RBC 4.23 Hgb 11.8 Hct 34.9 MCV 82.5 MCH 28.0 MCHC 33.9 RDW 13.3 Plt Count 223 MPV 8.4 Neut % (Auto) 54.8 Lymph % (Auto) 33.9 [place] % (Auto) 7.3 Eos % (Auto) 3.6 Baso % (Auto) 0.4 Neut # (Auto) 3.1 Lymph # (Auto) 1.9 [place] # (Auto) 0.4 Eos # (Auto) 0.2 Baso # (Auto) 0.0 D-Dimer, Quantitative 4277 H Sodium 142 Potassium 4.5 Chloride 104 Carbon Dioxide 23 Anion Gap 20 BUN 21 H Creatinine 1.0 Est GFR ( Amer) > 60 Est GFR (Non-Af Amer) 55 POC Glucose (mg/dL) Random Glucose 201 H Hemoglobin A1c Calcium 9.6 Total Bilirubin 0.5 AST 19 ALT 25 Alkaline Phosphatase 84 Total Creatine Kinase CK-MB (Mass) Troponin I < 0.0120 NT-Pro-B Natriuret Pep 132 Total Protein 7.8 Albumin 4.6 Globulin 3.2 Albumin/Globulin Ratio 1.4 Triglycerides Cholesterol LDL Cholesterol Direct HDL Cholesterol TSH 3rd Generation Cancelled 10/02/17 10/02/17 10/02/17 09:23 09:23 12:18 WBC RBC Hgb Hct MCV MCH MCHC RDW Plt Count MPV Neut % (Auto) Lymph % (Auto) [place] % (Auto) Eos % (Auto) Baso % (Auto) Neut # (Auto) Lymph # (Auto) [place] # (Auto) Eos # (Auto) Baso # (Auto) D-Dimer, Quantitative Sodium Potassium Chloride Carbon Dioxide Anion Gap BUN Creatinine Est GFR ( Amer) Est GFR (Non-Af Amer) POC Glucose (mg/dL) 407 H* Random Glucose Hemoglobin A1c 9.1 H Calcium Total Bilirubin AST ALT Alkaline Phosphatase Total Creatine Kinase CK-MB (Mass) Troponin I < 0.0120 NT-Pro-B Natriuret Pep Total Protein Albumin Globulin Albumin/Globulin Ratio Triglycerides 62 D Cholesterol 154 LDL Cholesterol Direct 71 HDL Cholesterol 51 TSH 3rd Generation 0.48 10/02/17 10/02/17 10/02/17 16:50 19:38 21:16 WBC RBC Hgb Hct MCV MCH MCHC RDW Plt Count MPV Neut % (Auto) Lymph % (Auto) [place] % (Auto) Eos % (Auto) Baso % (Auto) Neut # (Auto) Lymph # (Auto) [place] # (Auto) Eos # (Auto) Baso # (Auto) D-Dimer, Quantitative Sodium Potassium Chloride Carbon Dioxide Anion Gap BUN Creatinine Est GFR ( Amer) Est GFR (Non-Af Amer) POC Glucose (mg/dL) 417 H* 435 H* Random Glucose Hemoglobin A1c Calcium Total Bilirubin AST ALT Alkaline Phosphatase Total Creatine Kinase 99 CK-MB (Mass) 0.64 Troponin I < 0.0120 NT-Pro-B Natriuret Pep Total Protein Albumin Globulin Albumin/Globulin Ratio Triglycerides Cholesterol LDL Cholesterol Direct HDL Cholesterol TSH 3rd Generation 10/02/17 21:18 WBC RBC Hgb Hct MCV MCH MCHC RDW Plt Count MPV Neut % (Auto) Lymph % (Auto) [place] % (Auto) Eos % (Auto) Baso % (Auto) Neut # (Auto) Lymph # (Auto) [place] # (Auto) Eos # (Auto) Baso # (Auto) D-Dimer, Quantitative Sodium Potassium Chloride Carbon Dioxide Anion Gap BUN Creatinine Est GFR ( Amer) Est GFR (Non-Af Amer) POC Glucose (mg/dL) 393 H Random Glucose Hemoglobin A1c Calcium Total Bilirubin AST ALT Alkaline Phosphatase Total Creatine Kinase CK-MB (Mass) Troponin I NT-Pro-B Natriuret Pep Total Protein Albumin Globulin Albumin/Globulin Ratio Triglycerides Cholesterol LDL Cholesterol Direct HDL Cholesterol TSH 3rd Generation Assessment & Plan - Assessment and Plan (Free Text) Assessment: Patient seen and evaluated personally by me. Plan of care d/w the medical reimbursement specialist and as documented
[2017-10-02] MEDS: (Novolog) Insulin Aspart, Recombinant 100 u/ml 10 ml vial SC SCH (17:12)
--- NOTE | 2017-10-02 19:51 | CARD ---
APPROVED REPORT EKG Measurement Heart [id number] <Conclusion> Normal sinus rhythm Possible Left atrial enlargement Left axis deviation Right bundle branch block Abnormal ECG
[2017-10-02 20:08] LABS: CK-MB 0.64 ng/mL (0.0-3.38)
--- NOTE | 2017-10-02 21:00 | CP.PCM.HP ---
Present on Admission - Present on Admission Any Indicators Present on Admission: No Past Patient History - Infectious Disease Hx of Infectious Diseases: None - Past Medical History & Family History Past Medical History?: Yes - Past Social History Smoking Status: Former Smoker - CARDIAC Hx Hypercholesterolemia: Yes Hx Hypertension: Yes - PULMONARY Hx Asthma: Yes - ENDOCRINE/METABOLIC Hx Diabetes Mellitus Type 2: Yes - HEMATOLOGICAL/ONCOLOGICAL Hx Blood Disorders: No - INTEGUMENTARY Hx Dermatological Problems: No - MUSCULOSKELETAL/RHEUMATOLOGICAL Hx Falls: No - GASTROINTESTINAL Hx Gastrointestinal Disorders: No Hx Colostomy: Yes (x1 year w/ reversal) - GENITOURINARY/GYNECOLOGICAL Hx Genitourinary Disorders: No - PSYCHIATRIC Hx Substance Use: No - SURGICAL HISTORY Hx Cholecystectomy: Yes - ANESTHESIA Hx Anesthesia: Yes Hx Anesthesia Reactions: No Hx Malignant Hyperthermia: No Meds Allergies/Adverse Reactions: Allergies Allergy/AdvReac Type Severity Reaction Status Date / Time metronidazole [From Flagyl] Allergy Verified 10/02/17 01:01 contrast dye Allergy Uncoded 10/02/17 01:01 Physical Exam - Constitutional Appears: Well - Head Exam Head Exam: ATRAUMATIC, NORMAL INSPECTION, NORMOCEPHALIC - Eye Exam Eye Exam: EOMI, Normal appearance, PERRL Pupil Exam: NORMAL ACCOMODATION, PERRL - ENT Exam ENT Exam: Mucous Membranes Moist, Normal Exam - Neck Exam Neck exam: Positive for: Normal Inspection - Respiratory Exam Respiratory Exam: Decreased Breath Sounds - Cardiovascular Exam Cardiovascular Exam: REGULAR RHYTHM, +S1, +S2 - GI/Abdominal Exam GI & Abdominal Exam: Diminished Bowel Sounds, Soft - Rectal Exam Rectal Exam: Deferred Results - Vital Signs Recent Vital Signs: Last Vital Signs Temp 98 F 10/02/17 16:00 Pulse 89 10/02/17 16:09 Resp 20 10/02/17 16:00 BP 178/90 H 10/02/17 16:00 Pulse Ox 98 10/02/17 16:00 - Labs Result Diagrams: 10/02/17 01:33 10/02/17 01:33 Labs: Laboratory Results - last 24 hr 10/02/17 10/02/17 10/02/17 01:33 01:33 01:33 WBC 5.6 RBC 4.23 Hgb 11.8 Hct 34.9 MCV 82.5 MCH 28.0 MCHC 33.9 RDW 13.3 Plt Count 223 MPV 8.4 Neut % (Auto) 54.8 Lymph % (Auto) 33.9 [place] % (Auto) 7.3 Eos % (Auto) 3.6 Baso % (Auto) 0.4 Neut # (Auto) 3.1 Lymph # (Auto) 1.9 [place] # (Auto) 0.4 Eos # (Auto) 0.2 Baso # (Auto) 0.0 D-Dimer, Quantitative 4277 H Sodium 142 Potassium 4.5 Chloride 104 Carbon Dioxide 23 Anion Gap 20 BUN 21 H Creatinine 1.0 Est GFR ( Amer) > 60 Est GFR (Non-Af Amer) 55 POC Glucose (mg/dL) Random Glucose 201 H Hemoglobin A1c Calcium 9.6 Total Bilirubin 0.5 AST 19 ALT 25 Alkaline Phosphatase 84 Total Creatine Kinase CK-MB (Mass) Troponin I < 0.0120 NT-Pro-B Natriuret Pep 132 Total Protein 7.8 Albumin 4.6 Globulin 3.2 Albumin/Globulin Ratio 1.4 Triglycerides Cholesterol LDL Cholesterol Direct HDL Cholesterol TSH 3rd Generation Cancelled 10/02/17 10/02/17 10/02/17 09:23 09:23 12:18 WBC RBC Hgb Hct MCV MCH MCHC RDW Plt Count MPV Neut % (Auto) Lymph % (Auto) [place] % (Auto) Eos % (Auto) Baso % (Auto) Neut # (Auto) Lymph # (Auto) [place] # (Auto) Eos # (Auto) Baso # (Auto) D-Dimer, Quantitative Sodium Potassium Chloride Carbon Dioxide Anion Gap BUN Creatinine Est GFR ( Amer) Est GFR (Non-Af Amer) POC Glucose (mg/dL) 407 H* Random Glucose Hemoglobin A1c 9.1 H Calcium Total Bilirubin AST ALT Alkaline Phosphatase Total Creatine Kinase CK-MB (Mass) Troponin I < 0.0120 NT-Pro-B Natriuret Pep Total Protein Albumin Globulin Albumin/Globulin Ratio Triglycerides 62 D Cholesterol 154 LDL Cholesterol Direct 71 HDL Cholesterol 51 TSH 3rd Generation 0.48 10/02/17 10/02/17 16:50 19:38 WBC RBC Hgb Hct MCV MCH MCHC RDW Plt Count MPV Neut % (Auto) Lymph % (Auto) [place] % (Auto) Eos % (Auto) Baso % (Auto) Neut # (Auto) Lymph # (Auto) [place] # (Auto) Eos # (Auto) Baso # (Auto) D-Dimer, Quantitative Sodium Potassium Chloride Carbon Dioxide Anion Gap BUN Creatinine Est GFR ( Amer) Est GFR (Non-Af Amer) POC Glucose (mg/dL) 417 H* Random Glucose Hemoglobin A1c Calcium Total Bilirubin AST ALT Alkaline Phosphatase Total Creatine Kinase 99 CK-MB (Mass) 0.64 Troponin I < 0.0120 NT-Pro-B Natriuret Pep Total Protein Albumin Globulin Albumin/Globulin Ratio Triglycerides Cholesterol LDL Cholesterol Direct HDL Cholesterol TSH 3rd Generation Assessment & Plan - Assessment and Plan (Free Text) Plan: /P: 67 year old female with past medical history of Diabetes Mellitus, HTN, HLD presented to the ED with chest tightness and shortness of breath. Chest pain r/o ACS -Stable, afebrile -Will monitor on telemetry -Patient has strong family history of CAD, PR -Patient received Aspirin 325mg PO x 1 dose and Nitro in the ED -Continue Aspirin 81mg PO daily -Troponin negative x 2, third troponin pending -EKG: NSR with RBBB -Cardiac Catherization 01/2017 showed non-obstructing coronaries -Cardiology on consult, help appreciated Elevated D-Dimer -D dimer on admission 1871 -CTA was negative for pulmonary embolism History of Diabetes Mellitus -HgbA1C 9.1 -Low dose ISS with Accuchecks ACHS -Will hold oral hyperglycemic agents at this -Resume home insulin regimen -Hypogylcemia protocol History of Hypertension -BP was elevated upon arrival to the ED 216/100 -Hydralazine 10mg Q6H prn SBP > 170 -Patient is on Ramipril 10mg PO BID at home -Will start Lisinopril 20mg PO daily while in the hospital -Monitor Vital signs History of Hyperlipidemia -Lipid panel within normal limits -On Lipitor 10mg PO HS at home -While inhouse, will start Crestor 5mg PO daily GI/DVT ppx: -Protonix 40mg IVP daily -Lovenox 40mg SC daily
[2017-10-02] MEDS: (Novolin N) Insulin Human Isophane (NPH) 100 u/ml 10 ml vial SC SCH (21:27)
[2017-10-02] MEDS: GlipiZIDE 5 mg SR Tab PO SCH (21:28)
--- NOTE | 2017-10-03 07:17 | CP.PCM.PN ---
<Lizzie Sin - Last Filed: 10/03/17 14:54> Subjective - Date & Time of Evaluation Date of Evaluation: 10/03/17 Time of Evaluation: 07:16 - Subjective Subjective: Internal Medicine Progress Note - Dr Charlie Ingram Service Patient seen and examined at bedside. Per nursing no acute events overnight. Patient is doing well, offers no complaints at this time. Patient states that chest tightness has improved. Also reports having bilateral cheek redness this morning. Denies headaches, dizziness, cp, palpitations, sob, abdominal pain, urinary symptoms, changes in bowel habits. Objective - Vital Signs/Intake and Output Vital Signs (last 24 hours): Temp Pulse Resp BP Pulse Ox 97.9 F 92 H 20 117/64 98 10/03/17 00:00 10/03/17 00:00 10/03/17 00:00 10/03/17 00:00 10/03/17 00:00 Intake and Output: 10/03/17 10/03/17 06:59 18:59 Intake Total 400 Balance 400 - Medications Medications: Current Medications Acetaminophen (Tylenol 325mg Tab) 650 mg PO Q6 PRN PRN Reason: Headache Aspirin (Ecotrin) 81 mg PO DAILY [facility] Dextrose (Dextrose 50% Inj) 0 ml IV STAT PRN; Protocol PRN Reason: Hypoglycemia Protocol Dextrose (Glutose 15) 0 gm PO ONCE PRN; Protocol PRN Reason: Hypoglycemia Protocol Enoxaparin Sodium (Lovenox) 40 mg SC DAILY [facility] Glipizide (Glucotrol Xl) 5 mg PO DAILY [facility] Glipizide (Glucotrol Xl) 15 mg PO HS [facility] Last Admin: 10/02/17 21:28 Dose: 15 mg Glucagon (Glucagen Diagnostic Kit) 0 mg IM STAT PRN; Protocol PRN Reason: Hypoglycemia Protocol Hydralazine HCl (Apresoline) 10 mg IVP Q6H PRN PRN Reason: Systolic Blood Pressure Last Admin: 10/02/17 14:55 Dose: 10 mg Dextrose (Dextrose 5% In Water 1000 Ml) 1,000 mls @ 0 mls/hr IV .Q0M PRN; Protocol; Per Protocol PRN Reason: Hypoglycemia Protocol Insulin Aspart (Novolog) 6 unit SC AC [facility] Last Admin: 10/02/17 17:12 Dose: 6 unit Insulin Human NPH (Novolin N) 12 unit SC HS [facility] Last Admin: 10/02/17 21:27 Dose: 12 unit Insulin Human Regular (Novolin R) 0 unit SC ACHS [facility] PRN Reason: Protocol Last Admin: 10/02/17 21:27 Dose: 2 units Lisinopril (Zestril) 20 mg PO DAILY [facility] Last Admin: 10/02/17 15:58 Dose: 20 mg Metformin HCl (Glucophage) 1,000 mg PO BID [facility] Pantoprazole Sodium (Protonix Inj) 40 mg IVP DAILY [facility] Last Admin: 10/02/17 09:17 Dose: 40 mg Rosuvastatin Calcium (Crestor) [address] [facility] Last Admin: 10/02/17 21:29 Dose: 5 mg - Labs Labs: 10/02/17 01:33 10/02/17 01:33 - Additional Findings Additional findings: - Constitutional Appears: Non-toxic, No Acute Distress - Head Exam Head Exam: ATRAUMATIC, NORMAL INSPECTION, NORMOCEPHALIC - Eye Exam Eye Exam: EOMI, Normal appearance Pupil Exam: NORMAL ACCOMODATION - ENT Exam ENT Exam: Mucous Membranes Moist - Neck Exam Neck Exam: Full ROM - Respiratory Exam Respiratory Exam: Clear to Ausculation Bilateral, NORMAL BREATHING PATTERN. absent: Rales, Rhonchi, Wheezes - Cardiovascular Exam Cardiovascular Exam: REGULAR RHYTHM, +S1, +S2 - GI/Abdominal Exam GI & Abdominal Exam: Soft, Normal Bowel Sounds. absent: Guarding, Rigid, Tenderness, Hyperactive Bowel Sounds - Extremities Exam Extremities Exam: Full ROM, Normal Capillary Refill, Normal Inspection - Back Exam Back Exam: NORMAL INSPECTION - Neurological Exam Neurological Exam: Alert, Awake, CN II-XII Intact, Oriented x3 - Psychiatric Exam Psychiatric exam: Normal Affect, Normal Mood - Skin Skin Exam: Dry, Normal Color, Warm Assessment and Plan - Assessment and Plan (Free Text) Assessment: A/P: 67 year old female with past medical history of Diabetes Mellitus, HTN, HLD presented to the ED with chest tightness and shortness of breath. Chest pain r/o ACS -Stable, afebrile -Will monitor on telemetry -Patient has strong family history of CAD, [place] -Patient received Aspirin 325mg PO x 1 dose and Nitro in the ED -Continue Aspirin 81mg PO daily -Troponin negative x 3 -EKG: NSR with RBBB -Cardiac Catherization 01/2017 showed non-obstructing coronaries -Cardiology on consult, help appreciated Elevated D-Dimer -D dimer on admission 4277 -CTA was negative for pulmonary embolism Acute Kidney Injury -Cr 1.3 today -Started IV fluids NS @ 80cc/hr -Urine lytes ordered -Monitor History of Diabetes Mellitus -HgbA1C 9.1 -Low dose ISS with Accuchecks ACHS -CBG 300-400s (could be secondary to administration of steroids in ED) -Continue home dose Metformin and Glipizide -Resume home insulin regimen -Endocrine consult requested, help appreciated -Hypogylcemia protocol History of Hypertension -BP was elevated upon arrival to the ED 216/100 -Hydralazine 10mg Q6H prn SBP > 170 -Patient is on Ramipril 10mg PO BID at home -Will start Lisinopril 20mg PO daily while in the hospital -Monitor Vital signs History of Hyperlipidemia -Lipid panel within normal limits -On Lipitor 10mg PO HS at home -While inhouse, will start Crestor 5mg PO daily GI/DVT ppx: -Protonix 40mg IVP daily -Heparin 5000 SC Q12H Plan discussed with Dr Charlie Sin DO PGY-2 <Marcel Ingram S - Last Filed: 10/03/17 18:38> Objective - Vital Signs/Intake and Output Vital Signs (last 24 hours): Temp Pulse Resp BP Pulse Ox 98.0 F 85 20 123/79 98 10/03/17 15:01 10/03/17 17:05 10/03/17 15:01 10/03/17 15:01 10/03/17 15:01 Intake and Output: 10/03/17 10/03/17 06:59 18:59 Intake Total 400 Balance 400 - Medications Medications: Current Medications Acetaminophen (Tylenol 325mg Tab) 650 mg PO Q6 PRN PRN Reason: Headache Aspirin (Ecotrin) 81 mg PO DAILY [facility] Last Admin: 10/03/17 10:19 Dose: 81 mg Dextrose (Dextrose 50% Inj) 0 ml IV STAT PRN; Protocol PRN Reason: Hypoglycemia Protocol Dextrose (Glutose 15) 0 gm PO ONCE PRN; Protocol PRN Reason: Hypoglycemia Protocol Glipizide (Glucotrol Xl) 5 mg PO DAILY [facility] Last Admin: 10/03/17 10:19 Dose: 5 mg Glipizide (Glucotrol Xl) 15 mg PO HS [facility] Last Admin: 10/02/17 21:28 Dose: 15 mg Glucagon (Glucagen Diagnostic Kit) 0 mg IM STAT PRN; Protocol PRN Reason: Hypoglycemia Protocol Heparin Sodium (Porcine) (Heparin) 5,000 units SC Q12 [facility] Hydralazine HCl (Apresoline) 10 mg IVP Q6H PRN PRN Reason: Systolic Blood Pressure Last Admin: 10/02/17 14:55 Dose: 10 mg Dextrose (Dextrose 5% In Water 1000 Ml) 1,000 mls @ 0 mls/hr IV .Q0M PRN; Protocol; Per Protocol PRN Reason: Hypoglycemia Protocol Sodium Chloride (Sodium Chloride 0.9%) 1,000 mls @ 80 mls/hr IV .[id number] [facility] Last Admin: 10/03/17 10:55 Dose: 80 mls/hr Insulin Aspart (Novolog) 6 unit SC AC [facility] Last Admin: 10/03/17 17:40 Dose: 6 unit Insulin Aspart (Novolog) 0 unit SC ACHS [facility] PRN Reason: Protocol Last Admin: 10/03/17 17:40 Dose: 1 unit Insulin Human NPH (Novolin N) 12 unit SC HS [facility] Last Admin: 10/02/17 21:27 Dose: 12 unit Lisinopril (Zestril) 20 mg PO DAILY [facility] Last Admin: 10/03/17 10:19 Dose: 20 mg Metformin HCl (Glucophage) 1,000 mg PO BID [facility] Last Admin: 10/03/17 17:39 Dose: 1,000 mg Pantoprazole Sodium (Protonix Inj) 40 mg IVP DAILY [facility] Last Admin: 10/03/17 10:19 Dose: 40 mg Rosuvastatin Calcium (Crestor) 5 mg PO HS [facility] Last Admin: 10/02/17 21:29 Dose: 5 mg - Labs Labs: 10/03/17 08:53 10/03/17 08:53 Attending/Attestation - Attestation I have personally seen and examined this patient.: Yes I have fully participated in the care of the patient.: Yes I have reviewed all pertinent clinical information, including history, physical exam and plan: Yes Notes (Text): case seen and d.w staff and resident, concurred with finding and management..
[2017-10-03] MEDS: (Novolog) Insulin Aspart, Recombinant 100 u/ml 10 ml vial SC SCH ×7 (08:29→21:41)
[2017-10-03 09:04] LABS: BASO # 0.1 K/uL (0.0-0.2); BASO % 0.6 % (0.0-2.0); EOS # 0.1 K/uL (0.0-0.7); EOS % 0.8 % (0.0-4.0); HEMOGLOBIN 11.6 g/dL (11.0-16.0); LYMPH # 2.4 K/uL (1.0-4.3); LYMPH % 27.1 % (20.0-40.0); MEAN CELL VOLUME 82.7 fL (81.0-99.0); MEAN CORPUSCULAR HEMOGLOBIN 27.8 pg (27.0-31.0); MEAN CORPUSCULAR HGB CONC 33.6 g/dL (33.0-37.0); MEAN PLATELET VOLUME 8.9 fL (7.2-11.7); MONO # 0.7 K/uL (0.0-0.8); MONO % 7.9 % (0.0-10.0); NEUT # 5.7 K/uL (1.8-7.0); NEUT % 63.6 % (50.0-75.0); NRBC % 0.1 % (0.0-2.0); RBC 4.16 Mil/uL (3.80-5.20); RED CELL DISTRIBUTION WIDTH 13.4 % (11.5-14.5)
[2017-10-03 09:13] LABS: WHITE BLOOD COUNT 8.9 K/uL (4.8-10.8)
[2017-10-03 09:24] LABS: ALB/GLOB RATIO 1.5 (1.0-2.1); ALBUMIN 4.6 g/dL (3.5-5.0); CALCIUM 9.5 mg/dl (8.6-10.4)
[2017-10-03] MEDS ORDERED: Enoxaparin 40 mg Syringe SC SCH (10:00)
[2017-10-03] MEDS: GlipiZIDE 5 mg SR Tab PO SCH ×2 (10:19→23:04)
[2017-10-03] MEDS: Sodium Chloride 0.9% 1,000 ML IV SCH (10:55)
--- NOTE | 2017-10-03 11:38 | CP.PCM.PN ---
Subjective - Date & Time of Evaluation Date of Evaluation: 10/03/17 Time of Evaluation: 09:00 - Subjective Subjective: clinically same Objective - Vital Signs/Intake and Output Vital Signs (last 24 hours): Temp Pulse Resp BP Pulse Ox 97.4 F L 93 H 20 116/68 96 10/03/17 08:00 10/03/17 08:53 10/03/17 08:00 10/03/17 08:00 10/03/17 08:00 Intake and Output: 10/03/17 10/03/17 06:59 18:59 Intake Total 400 Balance 400 - Medications Medications: Current Medications Acetaminophen (Tylenol 325mg Tab) 650 mg PO Q6 PRN PRN Reason: Headache Aspirin (Ecotrin) 81 mg PO DAILY [facility] Last Admin: 10/03/17 10:19 Dose: 81 mg Dextrose (Dextrose 50% Inj) 0 ml IV STAT PRN; Protocol PRN Reason: Hypoglycemia Protocol Dextrose (Glutose 15) 0 gm PO ONCE PRN; Protocol PRN Reason: Hypoglycemia Protocol Glipizide (Glucotrol Xl) 5 mg PO DAILY [facility] Last Admin: 10/03/17 10:19 Dose: 5 mg Glipizide (Glucotrol Xl) 15 mg PO HS [facility] Last Admin: 10/02/17 21:28 Dose: 15 mg Glucagon (Glucagen Diagnostic Kit) 0 mg IM STAT PRN; Protocol PRN Reason: Hypoglycemia Protocol Hydralazine HCl (Apresoline) 10 mg IVP Q6H PRN PRN Reason: Systolic Blood Pressure Last Admin: 10/02/17 14:55 Dose: 10 mg Dextrose (Dextrose 5% In Water 1000 Ml) 1,000 mls @ 0 mls/hr IV .Q0M PRN; Protocol; Per Protocol PRN Reason: Hypoglycemia Protocol Sodium Chloride (Sodium Chloride 0.9%) 1,000 mls @ 80 mls/hr IV .[id number] [facility] Insulin Aspart (Novolog) 6 unit SC AC [facility] Last Admin: 10/03/17 08:29 Dose: 6 unit Insulin Aspart (Novolog) 0 unit SC ACHS [facility] PRN Reason: Protocol Last Admin: 10/03/17 08:29 Dose: 5 unit Insulin Human NPH (Novolin N) 12 unit SC HS [facility] Last Admin: 10/02/17 21:27 Dose: 12 unit Lisinopril (Zestril) 20 mg PO DAILY [facility] Last Admin: 10/03/17 10:19 Dose: 20 mg Metformin HCl (Glucophage) 1,000 mg PO BID [facility] Last Admin: 10/03/17 10:19 Dose: 1,000 mg Pantoprazole Sodium (Protonix Inj) 40 mg IVP DAILY [facility] Last Admin: 10/03/17 10:19 Dose: 40 mg Rosuvastatin Calcium (Crestor) 5 mg PO HS [facility] Last Admin: 10/02/17 21:29 Dose: 5 mg - Labs Labs: 10/03/17 08:53 10/03/17 08:53 - Constitutional Appears: Well - Head Exam Head Exam: ATRAUMATIC, NORMAL INSPECTION, NORMOCEPHALIC - Eye Exam Eye Exam: EOMI, Normal appearance, PERRL Pupil Exam: NORMAL ACCOMODATION, PERRL - ENT Exam ENT Exam: Mucous Membranes Moist, Normal Exam - Neck Exam Neck Exam: Full ROM, Normal Inspection. absent: Lymphadenopathy - Respiratory Exam Respiratory Exam: Decreased Breath Sounds - Cardiovascular Exam Cardiovascular Exam: REGULAR RHYTHM, +S1, +S2 - GI/Abdominal Exam GI & Abdominal Exam: Soft, Diminished Bowel Sounds - Rectal Exam Rectal Exam: Deferred Assessment and Plan - Assessment and Plan (Free Text) Plan: A/P: 67 year old female with past medical history of Diabetes Mellitus, HTN, HLD presented to the ED with chest tightness and shortness of breath. Chest pain r/o ACS -Stable, afebrile -Will monitor on telemetry -Patient has strong family history of CAD, [place] -Patient received Aspirin 325mg PO x 1 dose and Nitro in the ED -Continue Aspirin 81mg PO daily -Troponin negative x 3 -EKG: NSR with RBBB -Cardiac Catherization 01/2017 showed non-obstructing coronaries -Cardiology on consult, help appreciated Elevated D-Dimer -D dimer on admission 4277 -CTA was negative for pulmonary embolism Acute Kidney Injury -Cr 1.3 today -Started IV fluids NS @ 80cc/hr -Urine lytes ordered -Monitor History of Diabetes Mellitus -HgbA1C 9.1 -Low dose ISS with Accuchecks ACHS -CBG 300-400s (could be secondary to administration of steroids in ED) -Continue home dose Metformin and Glipizide -Resume home insulin regimen -Endocrine consult requested, help appreciated -Hypogylcemia protocol History of Hypertension -BP was elevated upon arrival to the ED 216/100 -Hydralazine 10mg Q6H prn SBP > 170 -Patient is on Ramipril 10mg PO BID at home -Will start Lisinopril 20mg PO daily while in the hospital -Monitor Vital signs History of Hyperlipidemia -Lipid panel within normal limits -On Lipitor 10mg PO HS at home -While inhouse, will start Crestor 5mg PO daily GI/DVT ppx: -Protonix 40mg IVP daily -Heparin 5000 SC Q12H
[2017-10-03] MEDS: (Novolin N) Insulin Human Isophane (NPH) 100 u/ml 10 ml vial SC SCH (21:45)
--- NOTE | 2017-10-03 23:03 | CP.PCM.PN ---
Subjective - Date & Time of Evaluation Date of Evaluation: 10/03/17 Time of Evaluation: 20:30 - Subjective Subjective: Patient seen and evaluated c/O Exertional chest tightness Cardiac cath tomorrow to re assess coronaries D/W patient's son Objective - Vital Signs/Intake and Output Vital Signs (last 24 hours): Temp Pulse Resp BP Pulse Ox 98.0 F 85 20 123/79 98 10/03/17 15:01 10/03/17 17:05 10/03/17 15:01 10/03/17 15:01 10/03/17 15:01 - Medications Medications: Current Medications Acetaminophen (Tylenol 325mg Tab) 650 mg PO Q6 PRN PRN Reason: Headache Aspirin (Ecotrin) 81 mg PO DAILY [facility] Last Admin: 10/03/17 10:19 Dose: 81 mg Dextrose (Dextrose 50% Inj) 0 ml IV STAT PRN; Protocol PRN Reason: Hypoglycemia Protocol Dextrose (Glutose 15) 0 gm PO ONCE PRN; Protocol PRN Reason: Hypoglycemia Protocol Glipizide (Glucotrol Xl) 5 mg PO DAILY [facility] Last Admin: 10/03/17 10:19 Dose: 5 mg Glipizide (Glucotrol Xl) 15 mg PO HS [facility] Last Admin: 10/02/17 21:28 Dose: 15 mg Glucagon (Glucagen Diagnostic Kit) 0 mg IM STAT PRN; Protocol PRN Reason: Hypoglycemia Protocol Heparin Sodium (Porcine) (Heparin) 5,000 units SC Q12 [facility] Last Admin: 10/03/17 21:45 Dose: 5,000 units Hydralazine HCl (Apresoline) 10 mg IVP Q6H PRN PRN Reason: Systolic Blood Pressure Last Admin: 10/02/17 14:55 Dose: 10 mg Dextrose (Dextrose 5% In Water 1000 Ml) 1,000 mls @ 0 mls/hr IV .Q0M PRN; Protocol; Per Protocol PRN Reason: Hypoglycemia Protocol Sodium Chloride (Sodium Chloride 0.9%) 1,000 mls @ 80 mls/hr IV .[id number] [facility] Last Admin: 10/03/17 10:55 Dose: 80 mls/hr Insulin Aspart (Novolog) 6 unit SC AC [facility] Last Admin: 10/03/17 17:40 Dose: 6 unit Insulin Aspart (Novolog) 0 unit SC ACHS [facility] PRN Reason: Protocol Last Admin: 10/03/17 21:41 Dose: Not Given Insulin Human NPH (Novolin N) 12 unit SC HS [facility] Last Admin: 10/03/17 21:45 Dose: 12 unit Lisinopril (Zestril) 20 mg PO DAILY [facility] Last Admin: 10/03/17 10:19 Dose: 20 mg Metformin HCl (Glucophage) 1,000 mg PO BID [facility] Last Admin: 10/03/17 17:39 Dose: 1,000 mg Pantoprazole Sodium (Protonix Inj) 40 mg IVP DAILY [facility] Last Admin: 10/03/17 10:19 Dose: 40 mg Rosuvastatin Calcium (Crestor) 5 mg PO HS [facility] Last Admin: 10/03/17 21:45 Dose: 5 mg - Labs Labs: 10/03/17 08:53 10/03/17 08:53
[2017-10-04] MEDS: Sodium Chloride 0.9% 1,000 ML IV SCH (03:48)
--- NOTE | 2017-10-04 07:13 | CT ---
Date of service: 10/03/2017 PROCEDURE: CT HEAD WITHOUT CONTRAST. HISTORY: persistent headaches COMPARISON: None available. TECHNIQUE: Axial computed tomography images were obtained through the head/brain without intravenous contrast. Radiation dose: Total exam DLP = 791 mGy-cm. This CT exam was performed using one or more of the following dose reduction techniques: Automated exposure control, adjustment of the mA and/or kV according to patient size, and/or use of iterative reconstruction technique. FINDINGS: HEMORRHAGE: No intracranial hemorrhage. BRAIN: Mild atrophy most prominent at the cerebellum. Few scattered subtle foci of decreased attenuation within the periventricular and subcortical white matter suggestive for chronic microvascular ischemic change. Probable chronic lacunar infarct about the right basal ganglia. VENTRICLES: Unremarkable. No hydrocephalus. CALVARIUM: Few small lucent calvarial lesions, nonspecific. PARANASAL SINUSES: Mild mucosal thickening of the left ethmoid sinus. MASTOID AIR CELLS: Partial opacification of the mastoid air cells. OTHER FINDINGS: Dermal calcifications. Mild atherosclerotic disease of the intracranial arteries. IMPRESSION: Probable chronic microvascular ischemic changes. If there is concern for acute ischemic change, consider correlation with MRI. These findings were preliminarily reported at 8:28 p.m. on 10/03/[address] Lars Leach from [facility].
--- NOTE | 2017-10-04 07:40 | CP.PCM.CON ---
History of Present Illness - History of Present Illness History of Present Illness: CONSULT DICTATED HEADACHE NO LONG TRACT SIGNS OR VASCULITIS WORK UP PER ORDER Past Patient History - Infectious Disease Hx of Infectious Diseases: None - Past Medical History & Family History Past Medical History?: Yes - Past Social History Smoking Status: Former Smoker - CARDIAC Hx Hypercholesterolemia: Yes Hx Hypertension: Yes - PULMONARY Hx Asthma: Yes - ENDOCRINE/METABOLIC Hx Diabetes Mellitus Type 2: Yes - HEMATOLOGICAL/ONCOLOGICAL Hx Blood Disorders: No - INTEGUMENTARY Hx Dermatological Problems: No - MUSCULOSKELETAL/RHEUMATOLOGICAL Hx Falls: No - GASTROINTESTINAL Hx Gastrointestinal Disorders: No Hx Colostomy: Yes (x1 year w/ reversal) - GENITOURINARY/GYNECOLOGICAL Hx Genitourinary Disorders: No - PSYCHIATRIC Hx Substance Use: No - SURGICAL HISTORY Hx Cholecystectomy: Yes - ANESTHESIA Hx Anesthesia: Yes Hx Anesthesia Reactions: No Hx Malignant Hyperthermia: No Meds Allergies/Adverse Reactions: Allergies Allergy/AdvReac Type Severity Reaction Status Date / Time metronidazole [From Flagyl] Allergy Verified 10/02/17 01:01 contrast dye Allergy Uncoded 10/02/17 01:01 - Medications Medications: Current Medications Acetaminophen (Tylenol 325mg Tab) 650 mg PO Q6 PRN PRN Reason: Headache Aspirin (Ecotrin) 81 mg PO DAILY [facility] Last Admin: 10/03/17 10:19 Dose: 81 mg Dextrose (Dextrose 50% Inj) 0 ml IV STAT PRN; Protocol PRN Reason: Hypoglycemia Protocol Last Admin: 10/04/17 06:10 Dose: 50 ml Dextrose (Glutose 15) 0 gm PO ONCE PRN; Protocol PRN Reason: Hypoglycemia Protocol Glipizide (Glucotrol Xl) 5 mg PO DAILY [facility] Last Admin: 10/03/17 10:19 Dose: 5 mg Glipizide (Glucotrol Xl) 15 mg PO HS [facility] Last Admin: 10/03/17 23:04 Dose: Not Given Glucagon (Glucagen Diagnostic Kit) 0 mg IM STAT PRN; Protocol PRN Reason: Hypoglycemia Protocol Heparin Sodium (Porcine) (Heparin) 5,000 units SC Q12 [facility] Last Admin: 10/03/17 21:45 Dose: 5,000 units Hydralazine HCl (Apresoline) 10 mg IVP Q6H PRN PRN Reason: Systolic Blood Pressure Last Admin: 10/02/17 14:55 Dose: 10 mg Dextrose (Dextrose 5% In Water 1000 Ml) 1,000 mls @ 0 mls/hr IV .Q0M PRN; Protocol; Per Protocol PRN Reason: Hypoglycemia Protocol Sodium Chloride (Sodium Chloride 0.9%) 1,000 mls @ 80 mls/hr IV .[id number] [facility] Last Admin: 10/04/17 03:48 Dose: 80 mls/hr Insulin Aspart (Novolog) 6 unit SC AC [facility] Last Admin: 10/03/17 17:40 Dose: 6 unit Insulin Aspart (Novolog) 0 unit SC ACHS [facility] PRN Reason: Protocol Last Admin: 10/03/17 21:41 Dose: Not Given Insulin Human NPH (Novolin N) 12 unit SC HS [facility] Last Admin: 10/03/17 21:45 Dose: 12 unit Lisinopril (Zestril) 20 mg PO DAILY [facility] Last Admin: 10/03/17 10:19 Dose: 20 mg Metformin HCl (Glucophage) 1,000 mg PO BID [facility] Last Admin: 10/03/17 17:39 Dose: 1,000 mg Pantoprazole Sodium (Protonix Inj) 40 mg IVP DAILY [facility] Last Admin: 10/03/17 10:19 Dose: 40 mg Rosuvastatin Calcium (Crestor) 5 mg PO HS [facility] Last Admin: 10/03/17 21:45 Dose: 5 mg Results - Vital Signs Recent Vital Signs: Last Vital Signs Temp 97.9 F 10/03/17 23:50 Pulse 80 10/04/17 00:11 Resp 20 10/03/17 23:50 BP 147/82 10/03/17 23:50 Pulse Ox 98 10/03/17 23:50 - Labs Result Diagrams: 10/03/17 08:53 10/03/17 08:53 Labs: Laboratory Results - last 24 hr 10/03/17 10/03/17 10/03/17 08:53 08:53 10:53 WBC 8.9 D RBC 4.16 Hgb 11.6 Hct 34.4 MCV 82.7 MCH 27.8 MCHC 33.6 RDW 13.4 Plt Count 273 MPV 8.9 Neut % (Auto) 63.6 Lymph % (Auto) 27.1 Jewell % (Auto) 7.9 Eos % (Auto) 0.8 Baso % (Auto) 0.6 Neut # (Auto) 5.7 Lymph # (Auto) 2.4 Jewell # (Auto) 0.7 Eos # (Auto) 0.1 Baso # (Auto) 0.1 Sodium 135 Potassium 4.3 Chloride 98 Carbon Dioxide 25 Anion Gap 17 BUN 35 H Creatinine 1.3 H Est GFR ( Amer) 49 Est GFR (Non-Af Amer) 41 POC Glucose (mg/dL) 319 H Random Glucose 356 H Calcium 9.5 Phosphorus 3.7 Magnesium 2.0 Total Bilirubin 0.7 AST 26 ALT 14 Alkaline Phosphatase 83 Total Protein 7.8 Albumin 4.6 Globulin 3.2 Albumin/Globulin Ratio 1.5 10/03/17 10/03/17 10/04/17 15:42 21:20 06:05 WBC RBC Hgb Hct MCV MCH MCHC RDW Plt Count MPV Neut % (Auto) Lymph % (Auto) Jewell % (Auto) Eos % (Auto) Baso % (Auto) Neut # (Auto) Lymph # (Auto) Jewell # (Auto) Eos # (Auto) Baso # (Auto) Sodium Potassium Chloride Carbon Dioxide Anion Gap BUN Creatinine Est GFR ( Amer) Est GFR (Non-Af Amer) POC Glucose (mg/dL) 182 H 101 65 Random Glucose Calcium Phosphorus Magnesium Total Bilirubin AST ALT Alkaline Phosphatase Total Protein Albumin Globulin Albumin/Globulin Ratio 10/04/17 10/04/17 06:07 06:48 WBC RBC Hgb Hct MCV MCH MCHC RDW Plt Count MPV Neut % (Auto) Lymph % (Auto) Jewell % (Auto) Eos % (Auto) Baso % (Auto) Neut # (Auto) Lymph # (Auto) Jewell # (Auto) Eos # (Auto) Baso # (Auto) Sodium Potassium Chloride Carbon Dioxide Anion Gap BUN Creatinine Est GFR ( Amer) Est GFR (Non-Af Amer) POC Glucose (mg/dL) 62 L 284 H Random Glucose Calcium Phosphorus Magnesium Total Bilirubin AST ALT Alkaline Phosphatase Total Protein Albumin Globulin Albumin/Globulin Ratio
--- NOTE | 2017-10-04 07:41 | CP.PCM.PN ---
Subjective - Date & Time of Evaluation Date of Evaluation: 10/04/17 Time of Evaluation: 07:40 - Subjective Subjective: Internal Medicine Progress Note - Dr Charlie Ingram Service Patient seen and examined at bedside. Per nursing no acute events overnight. Patient is NPO for cardiac catherization this morning. Offers no complaints at this time. Denies dizziness, cp, palpitations sob, abdominal pain, urinary symptoms, changes in bowel habits. Objective - Vital Signs/Intake and Output Vital Signs (last 24 hours): Temp Pulse Resp BP Pulse Ox 97.9 F 80 20 147/82 98 10/03/17 23:50 10/04/17 00:11 10/03/17 23:50 10/03/17 23:50 10/03/17 23:50 Intake and Output: 10/04/17 10/04/17 06:59 18:59 Intake Total 1160 Balance 1160 - Medications Medications: Current Medications Acetaminophen (Tylenol 325mg Tab) 650 mg PO Q6 PRN PRN Reason: Headache Aspirin (Ecotrin) 81 mg PO DAILY [facility] Last Admin: 10/03/17 10:19 Dose: 81 mg Dextrose (Dextrose 50% Inj) 0 ml IV STAT PRN; Protocol PRN Reason: Hypoglycemia Protocol Last Admin: 10/04/17 06:10 Dose: 50 ml Dextrose (Glutose 15) 0 gm PO ONCE PRN; Protocol PRN Reason: Hypoglycemia Protocol Glipizide (Glucotrol Xl) 5 mg PO DAILY [facility] Last Admin: 10/03/17 10:19 Dose: 5 mg Glipizide (Glucotrol Xl) 15 mg PO HS [facility] Last Admin: 10/03/17 23:04 Dose: Not Given Glucagon (Glucagen Diagnostic Kit) 0 mg IM STAT PRN; Protocol PRN Reason: Hypoglycemia Protocol Heparin Sodium (Porcine) (Heparin) 5,000 units SC Q12 [facility] Last Admin: 10/03/17 21:45 Dose: 5,000 units Hydralazine HCl (Apresoline) 10 mg IVP Q6H PRN PRN Reason: Systolic Blood Pressure Last Admin: 10/02/17 14:55 Dose: 10 mg Dextrose (Dextrose 5% In Water 1000 Ml) 1,000 mls @ 0 mls/hr IV .Q0M PRN; Protocol; Per Protocol PRN Reason: Hypoglycemia Protocol Sodium Chloride (Sodium Chloride 0.9%) 1,000 mls @ 80 mls/hr IV .[id number] [facility] Last Admin: 10/04/17 03:48 Dose: 80 mls/hr Insulin Aspart (Novolog) 6 unit SC AC [facility] Last Admin: 10/03/17 17:40 Dose: 6 unit Insulin Aspart (Novolog) 0 unit SC ACHS [facility] PRN Reason: Protocol Last Admin: 10/03/17 21:41 Dose: Not Given Insulin Human NPH (Novolin N) 12 unit SC HS [facility] Last Admin: 10/03/17 21:45 Dose: 12 unit Lisinopril (Zestril) 20 mg PO DAILY [facility] Last Admin: 10/03/17 10:19 Dose: 20 mg Metformin HCl (Glucophage) 1,000 mg PO BID [facility] Last Admin: 10/03/17 17:39 Dose: 1,000 mg Pantoprazole Sodium (Protonix Inj) 40 mg IVP DAILY [facility] Last Admin: 10/03/17 10:19 Dose: 40 mg Rosuvastatin Calcium (Crestor) 5 mg PO [facility] Last Admin: 10/03/17 21:45 Dose: 5 mg - Labs Labs: 10/03/17 08:53 10/03/17 08:53 - Additional Findings Additional findings: - Constitutional Appears: Non-toxic, No Acute Distress - Head Exam Head Exam: ATRAUMATIC, NORMAL INSPECTION, NORMOCEPHALIC - Eye Exam Eye Exam: EOMI, Normal appearance Pupil Exam: NORMAL ACCOMODATION - ENT Exam ENT Exam: Mucous Membranes Moist - Neck Exam Neck Exam: Full ROM - Respiratory Exam Respiratory Exam: Clear to Ausculation Bilateral, NORMAL BREATHING PATTERN. absent: Rales, Rhonchi, Wheezes - Cardiovascular Exam Cardiovascular Exam: REGULAR RHYTHM, +S1, +S2 - GI/Abdominal Exam GI & Abdominal Exam: Soft, Normal Bowel Sounds. absent: Guarding, Rigid, Tenderness, Hyperactive Bowel Sounds - Extremities Exam Extremities Exam: Full ROM, Normal Capillary Refill, Normal Inspection - Back Exam Back Exam: NORMAL INSPECTION - Neurological Exam Neurological Exam: Alert, Awake, CN II-XII Intact, Oriented x3 - Psychiatric Exam Psychiatric exam: Normal Affect, Normal Mood - Skin Skin Exam: Dry, Normal Color, Warm Assessment and Plan - Assessment and Plan (Free Text) Assessment: A/P: 67 year old female with past medical history of Diabetes Mellitus, HTN, HLD presented to the ED with chest tightness and shortness of breath. Chest pain r/o ACS -Stable, afebrile -Cardiac cath showed L Main: 50-60% with pressure dampening and no dye reflux and chest pain, LAD/Diag: Patent, L Cx/OM: Proximal 80%, RCA: Dominnat and patent, LV: EF 70%. No WMA, EDP 18 -Patient transferred to the ICU for for closer monitoring -Started on Coreg 3.125mg PO BID, crestor increased to 20mg PO HS -Patient to be started on Heparin drip -Dr Beauchamp consulted for possible CABG, open heart surgery -Patient has strong family history of CAD, [place] -Patient received Aspirin 325mg PO x 1 dose and Nitro in the ED -Continue Aspirin 81mg PO daily -Troponin negative x 3 -EKG: NSR with RBBB -Cardiac Catherization 01/2017 showed non-obstructing coronaries -Cardiology on consult, help appreciated Headache -CT head showed chronic microvascular changes -MRI of the brain ordered -Neurology on consult, help appreciated Elevated D-Dimer -D dimer on admission 4277 -CTA was negative for pulmonary embolism Acute Kidney Injury -Cr 1.3 today -Continue IV fluids NS @ 80cc/hr -Urine lytes ordered -Monitor History of Diabetes Mellitus -HgbA1C 9.1 -Low dose ISS with Accuchecks ACHS -CBG 300-400s previously (could be secondary to administration of steroids in ED ) -Today blood sugars have improved -Continue home dose Metformin and Glipizide -Resume home insulin regimen -Endocrine consult requested, help appreciated -Hypogylcemia protocol History of Hypertension -BP was elevated upon arrival to the ED 216/100 -Hydralazine 10mg Q6H prn SBP > 170 -Patient is on Ramipril 10mg PO BID at home -Will start Lisinopril 20mg PO daily while in the hospital -Monitor Vital signs History of Hyperlipidemia -Lipid panel within normal limits -On Lipitor 10mg PO HS at home -Crestor increased to 20mg PO HS GI/DVT ppx: -Protonix 40mg IVP daily -Heparin 5000 SC Q12H Plan discussed with Dr Charlie Sin DO PGY-2
[2017-10-04] MEDS: (Novolog) Insulin Aspart, Recombinant 100 u/ml 10 ml vial SC SCH ×7 (07:50→21:04)
[2017-10-04] MEDS ORDERED: DiphenhydrAMINE 50 mg/ml Inj ONE (08:04)
--- NOTE | 2017-10-04 08:17 | CON ---
DATE: 10/04/2017TIME OF EVALUATION: 6:55 a.m. REASON FOR THE CONSULTATION: Headache. CHIEF COMPLAINT: The patient was brought into [facility] with a history of 10/10 chest pain. The patient was admitted with acute coronary syndrome. Because of her recurrent headaches, I was called in to evaluate her for further management. HISTORY OF PRESENT ILLNESS: Ms. Fadumo Dobson is a 67-year-old right-handed female presenting with headache which is usually presenting at the vertex region, scale about 5/10, not associated with nausea or vomiting or any visual disturbances with the frequency of one time per week. Usually headache goes away with Tylenol. However, the headache is not bothering for her. However, her son is concerned about her headache. She also carries a history of loss of her mother with the brain tumor in the past. PAST MEDICAL HISTORY: Nvd-pyhhpsz-ilwcplirm diabetes mellitus, hypertension, coronary artery disease. PERSONAL HISTORY: Denies smoking or alcohol use. ALLERGIES: NO KNOWN ALLERGIES. REVIEW OF SYSTEMS: A 12-point system have been reviewed. From neuro, recurrent headache. MEDICATIONS: Apresoline, Crestor, Ecotrin, glucagon, glipizide, metformin, IV fluids, pantoprazole, and lisinopril. PHYSICAL EXAMINATION: VITAL SIGNS: Blood pressure 147/82, mean artery pressure of 103, respiratory rate 18, temperature 97.9 with a pulse rate of 80 and regular. NECK: Supple. No carotid bruit. HEART: Sounds regular. CHEST: Fair air entry. EXTREMITIES: No edema in legs. NEUROLOGIC EXAMINATION: Mental status examination: She is awake, alert, and oriented to person, place and time. Speech is clear. Naming, repetition, fluency, comprehension all within normal. Cranial nerve examination: Visual field intact. Pupils reactive. Extraocular movements normal. No nystagmus. No facial sensory deficit. No facial asymmetry. Hearing is normal. Tongue is midline. Good gag. Motor examination: Outstretched hand with eyes closed, no drift noted. Power is symmetric on either side. Deep tendon reflexes biceps, brachialis, triceps 1+; both knees are 1+; both ankles are absent. Plantars are downgoing. 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 Coordination: [id number]-rb-[id number] test is intact. Examination of the temporal artery: No tenderness. No beaded appearance. TMJs are normal. . No scalp tenderness. LABORATORY DATA: Workup, CT of the head reported as negative and had been reviewed by me as well. Blood workup: WBC 8.9, hemoglobin 11.6, hematocrit 34.4, platelet 273. Sodium 135, potassium 4.3, chloride 98, bicarbonate 25, BUN 35, creatinine 1.3, glucose 284, calcium 9.5. Liver functions are normal. CONCLUSION: Ms. Fadumo Dobson has been presenting with recurrent headache with family history of brain tumor. The current neurological examination does not show any long tract sign suggestive of intracranial pathology. The examination is also not consistent with any vasculitis process. RECOMMENDATIONS: 1. MRI of the brain to rule out any structural cause. 2. Blood workup for hypercoagulable state as well as vasculitis process. In meantime, her headache can be controlled with nonsteroidal anti-inflammatory drugs. The patient will be followed closely with you. Kvng Blackman MD MTDFaheem
[2017-10-04] MEDS ORDERED: Midazolam 2 MG/2 ML VIAL ONE (08:22)
[2017-10-04] MEDS ORDERED: Lidocaine 2% MPF (5 ml) Inj ONE ×2 (08:23→08:57)
[2017-10-04 09:02] LABS: BASO # 0.1 K/uL (0.0-0.2); BASO % 1.2 % (0.0-2.0); EOS # 0.2 K/uL (0.0-0.7); EOS % 4.7 % (0.0-4.0); HEMOGLOBIN 12.1 g/dL (11.0-16.0); LYMPH # 1.9 K/uL (1.0-4.3); LYMPH % 37.9 % (20.0-40.0); MEAN CELL VOLUME 83.2 fL (81.0-99.0); MEAN CORPUSCULAR HEMOGLOBIN 28.3 pg (27.0-31.0); MEAN PLATELET VOLUME 8.8 fL (7.2-11.7); MONO # 0.4 K/uL (0.0-0.8); MONO % 7.7 % (0.0-10.0); NEUT # 2.4 K/uL (1.8-7.0); NEUT % 48.5 % (50.0-75.0); NRBC % 0.1 % (0.0-2.0); RBC 4.26 Mil/uL (3.80-5.20); RED CELL DISTRIBUTION WIDTH 13.7 % (11.5-14.5)
[2017-10-04] MEDS ORDERED: Iodixanol 320 MG/ML 100 ML BOTTLE IV ONE (09:15)
[2017-10-04] MEDS ORDERED: Nitroglycerin 50mg in D5W 50 MG/250 ML BOTTLE IV ONE (09:29)
[2017-10-04 09:41] LABS: ALB/GLOB RATIO 1.3 (1.0-2.1); ALBUMIN 4.4 g/dL (3.5-5.0); CALCIUM 9.6 mg/dl (8.6-10.4)
[2017-10-04 09:42] LABS: FREE T4 1.55 ng/dL (0.78-2.19)
--- NOTE | 2017-10-04 10:05 | CP.PCM.PN ---
Subjective - Date & Time of Evaluation Date of Evaluation: 10/04/17 Time of Evaluation: 10:02 - Subjective Subjective: Patient s/p cath 1. L Main: 50-60% with pressure dampening and no dye reflux and chest pain 2. LAD/Diag: Patent 3. L Cx/OM: Proximal 80% 4. RCA: Dominnat and patent 5. LV: EF 70%. No WMA, EDP 18 Rapid CAD progression c/w last time Chest pressure with minimal exertion Unstable angina Started on Tridil IV Hydration Start Therapeutic Heparin from 3pm today D/C Plavix ASA, Statins and B Blockers for now CT surgery consult with dr. Beauchamp Transfer to [facility] for CABG Objective - Vital Signs/Intake and Output Vital Signs (last 24 hours): Temp Pulse Resp BP Pulse Ox 98.0 F 93 H 20 133/79 98 10/04/17 07:30 10/04/17 07:30 10/04/17 07:30 10/04/17 07:30 10/04/17 07:30 Intake and Output: 10/04/17 10/04/17 06:59 18:59 Intake Total 1160 Balance 1160 - Medications Medications: Current Medications Acetaminophen (Tylenol 325mg Tab) 650 mg PO Q6 PRN PRN Reason: Headache Aspirin (Ecotrin) 81 mg PO DAILY [facility] Last Admin: 10/03/17 10:19 Dose: 81 mg Dextrose (Dextrose 50% Inj) 0 ml IV STAT PRN; Protocol PRN Reason: Hypoglycemia Protocol Last Admin: 10/04/17 06:10 Dose: 50 ml Dextrose (Glutose 15) 0 gm PO ONCE PRN; Protocol PRN Reason: Hypoglycemia Protocol Glipizide (Glucotrol Xl) 5 mg PO DAILY [facility] Last Admin: 10/03/17 10:19 Dose: 5 mg Glipizide (Glucotrol Xl) 15 mg PO HS [facility] Last Admin: 10/03/17 23:04 Dose: Not Given Glucagon (Glucagen Diagnostic Kit) 0 mg IM STAT PRN; Protocol PRN Reason: Hypoglycemia Protocol Heparin Sodium (Porcine) (Heparin) 5,000 units SC Q12 [facility] Last Admin: 10/03/17 21:45 Dose: 5,000 units Hydralazine HCl (Apresoline) 10 mg IVP Q6H PRN PRN Reason: Systolic Blood Pressure Last Admin: 10/02/17 14:55 Dose: 10 mg Dextrose (Dextrose 5% In Water 1000 Ml) 1,000 mls @ 0 mls/hr IV .Q0M PRN; Protocol; Per Protocol PRN Reason: Hypoglycemia Protocol Sodium Chloride (Sodium Chloride 0.9%) 1,000 mls @ 80 mls/hr IV .[id number] [facility] Last Admin: 10/04/17 03:48 Dose: 80 mls/hr Insulin Aspart (Novolog) 6 unit SC AC [facility] Last Admin: 10/04/17 07:50 Dose: Not Given Insulin Aspart (Novolog) 0 unit SC ACHS [facility] PRN Reason: Protocol Last Admin: 10/04/17 07:50 Dose: Not Given Insulin Human NPH (Novolin N) 12 unit SC HS [facility] Last Admin: 10/03/17 21:45 Dose: 12 unit Lisinopril (Zestril) 20 mg PO DAILY [facility] Last Admin: 10/03/17 10:19 Dose: 20 mg Metformin HCl (Glucophage) 1,000 mg PO BID [facility] Last Admin: 10/03/17 17:39 Dose: 1,000 mg Pantoprazole Sodium (Protonix Inj) 40 mg IVP DAILY [facility] Last Admin: 10/03/17 10:19 Dose: 40 mg Rosuvastatin Calcium (Crestor) 5 mg PO HS [facility] Last Admin: 10/03/17 21:45 Dose: 5 mg - Labs Labs: 10/04/17 08:49 10/04/17 08:49
[2017-10-04] MEDS ORDERED: Oxycodone/Acetaminophen 5/325 mg Tab PO PRN (10:15)
[2017-10-04] MEDS: GlipiZIDE 5 mg SR Tab PO SCH ×2 (10:20→21:42)
[2017-10-04] MEDS ORDERED: Oxycodone/Acetaminophen 5/325 mg Tab ONE (10:27)
--- NOTE | 2017-10-04 13:31 | CP.PCM.CON ---
<Lucia Lennon - Last Filed: 10/04/17 13:23> History of Present Illness - History of Present Illness History of Present Illness: Critical Care consult note 67 year old female with past medical history of HTN, DM, HLD, CAD was admitted to hospital for unstable angina. Patient was taken for cardiac cath today with Dr. Vanegas and was found to have significant LAD disease. Pt was transferred to ICU with intent for being [place] [facility] [place]. Patient was admitted on 10/02/17 show chest pain Currently, pt denies having any CP, SOB, abd pain, N/V/D/C, F/C. Allergies: Contrast dye and Flagyl (metronidazole)- anaphylaxis PMHx: IDDM, HTN, HLD, GERD, Vertigo Past surgical Hx: Cholecystectomy (1970), Tubal ligation (1979), Hysterectomy ( unsure of date; >10 years ago), Colostomy bag placement (1998), Colostomy bag reversal (1999), Appendectomy (unsure; >5 years), Hiatal hernia (unsure; >5 years) Family hx: Father: due to MT at 55 y/o Paternal Aunt: , heart problems (pt uncertain about details) Brother: 3 strokes beginning when he was in his 50s Mother: due to brain tumor Social: Denies alcohol, tobacco, drug use Exercise: walks a lot, walks for >20 minutes a day Diet: Eats fruits and vegetables. 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, Lives alone and is able to perform all ADL without assistance 3 children, 5 granddaughters, 2 great granddaughters with her [address]rd on the [address] Home Medications: Novolog, Humulin, Metformin, Ramipril, Glipizide, Rosuvastatin (Crestor), 81 mg PO Aspirin at bedtime, Medication for GERD but uncertain of name, Recently discontinued medication for vertigo Review of Systems - Constitutional Constitutional: absent: Chills, Fever - EENT Eyes: absent: Blurred Vision, Change in Vision Nose/Mouth/Throat: absent: Nasal Congestion, Nasal Discharge, Dysphagia - Cardiovascular Cardiovascular: Chest Pain, Chest Pain at Rest. absent: Chest Pain with Activity, Diaphoresis, Dyspnea on Exertion, Leg Edema - Respiratory Respiratory: absent: Dyspnea, Wheezing - Gastrointestinal Gastrointestinal: absent: Abdominal Pain, Constipation, Diarrhea, Nausea, Vomiting - Genitourinary Genitourinary: absent: Dysuria - Integumentary Integumentary: absent: Lesions, Rash - Neurological Neurological: absent: Confusion, Dizziness, Loss of Vision - Psychiatric Psychiatric: absent: Anxiety, Depression Past Patient History - Infectious Disease Hx of Infectious Diseases: None - Past Medical History & Family History Past Medical History?: Yes - Past Social History Smoking Status: Former Smoker Chewing Tobacco Use: No Cigar Use: No Alcohol: None - CARDIAC Hx Hypercholesterolemia: Yes Hx Hypertension: Yes - PULMONARY Hx Asthma: Yes - ENDOCRINE/METABOLIC Hx Diabetes Mellitus Type 2: Yes - HEMATOLOGICAL/ONCOLOGICAL Hx Blood Disorders: No - INTEGUMENTARY Hx Dermatological Problems: No - MUSCULOSKELETAL/RHEUMATOLOGICAL Hx Falls: No - GASTROINTESTINAL Hx Gastrointestinal Disorders: No Hx Colostomy: Yes (x1 year w/ reversal) - GENITOURINARY/GYNECOLOGICAL Hx Genitourinary Disorders: No - PSYCHIATRIC Hx Substance Use: No - SURGICAL HISTORY Hx Cholecystectomy: Yes - ANESTHESIA Hx Anesthesia: Yes Hx Anesthesia Reactions: No Hx Malignant Hyperthermia: No Meds Allergies/Adverse Reactions: Allergies Allergy/AdvReac Type Severity Reaction Status Date / Time metronidazole [From Flagyl] Allergy Verified 10/02/17 01:01 contrast dye Allergy Uncoded 10/02/17 01:01 - Medications Medications: Current Medications Acetaminophen (Tylenol 325mg Tab) 650 mg PO Q6 PRN PRN Reason: Headache Aspirin (Ecotrin) 81 mg PO DAILY [facility] Last Admin: 10/04/17 10:09 Dose: Not Given Dextrose (Dextrose 50% Inj) 0 ml IV STAT PRN; Protocol PRN Reason: Hypoglycemia Protocol Last Admin: 10/04/17 06:10 Dose: 50 ml Dextrose (Glutose 15) 0 gm PO ONCE PRN; Protocol PRN Reason: Hypoglycemia Protocol Glipizide (Glucotrol Xl) 5 mg PO DAILY [facility] Last Admin: 10/03/17 10:19 Dose: 5 mg Glipizide (Glucotrol Xl) 15 mg PO HS [facility] Last Admin: 10/03/17 23:04 Dose: Not Given Glucagon (Glucagen Diagnostic Kit) 0 mg IM STAT PRN; Protocol PRN Reason: Hypoglycemia Protocol Hydralazine HCl (Apresoline) 10 mg IVP Q6H PRN PRN Reason: Systolic Blood Pressure Last Admin: 10/02/17 14:55 Dose: 10 mg Dextrose (Dextrose 5% In Water 1000 Ml) 1,000 mls @ 0 mls/hr IV .Q0M PRN; Protocol; Per Protocol PRN Reason: Hypoglycemia Protocol Sodium Chloride (Sodium Chloride 0.9%) 1,000 mls @ 80 mls/hr IV .[id number] [facility] Last Admin: 10/04/17 03:48 Dose: 80 mls/hr Heparin Sodium/Sodium Chloride (Heparin 17599 Units/250ml 1/2 Normal Saline) 25 ,000 units in 250 mls @ 7.893 mls/hr IV .Q24H PRN; Protocol; 12 UNITS/KG/HR PRN Reason: PROTOCOL Insulin Aspart (Novolog) 6 unit SC AC [facility] Last Admin: 10/04/17 07:50 Dose: Not Given Insulin Aspart (Novolog) 0 unit SC ACHS [facility] PRN Reason: Protocol Last Admin: 10/04/17 07:50 Dose: Not Given Insulin Human NPH (Novolin N) 12 unit SC [facility] Last Admin: 10/03/17 21:45 Dose: 12 unit Lisinopril (Zestril) 20 mg PO DAILY [facility] Last Admin: 10/03/17 10:19 Dose: 20 mg Oxycodone/Acetaminophen (Percocet 5/325 Mg Tab) 1 tab PO Q4H PRN PRN Reason: Chest pain Stop: 10/05/17 10:16 Pantoprazole Sodium (Protonix Inj) 40 mg IVP DAILY [facility] Last Admin: 10/03/17 10:19 Dose: 40 mg Rosuvastatin Calcium (Crestor) 20 mg PO [facility] Physical Exam - Constitutional Appears: Non-toxic, No Acute Distress - Head Exam Head Exam: ATRAUMATIC, NORMOCEPHALIC - Eye Exam Eye Exam: EOMI Pupil Exam: NORMAL ACCOMODATION - ENT Exam ENT Exam: Mucous Membranes Moist - Respiratory Exam Respiratory Exam: Clear to Auscultation Bilateral, NORMAL BREATHING PATTERN. absent: Rales, Wheezes - Cardiovascular Exam Cardiovascular Exam: Tachycardia, +S1, +S2. absent: Diastolic murmur, Systolic Murmur - GI/Abdominal Exam GI & Abdominal Exam: Normal Bowel Sounds, Soft. absent: Distended, Firm, Guarding - Extremities Exam Extremities exam: Negative for: calf tenderness, pedal edema Additional comments: right femoral cath site bandaged. No hematoma - Neurological Exam Neurological exam: Alert, CN II-XII Intact, Oriented x3 - Psychiatric Exam Psychiatric exam: Normal Affect, Normal Mood Results - Vital Signs Recent Vital Signs: Last Vital Signs Temp 98.0 F 10/04/17 07:30 Pulse 100 H 10/04/17 09:30 Resp 20 10/04/17 09:30 BP 178/77 H 10/04/17 09:30 Pulse Ox 100 10/04/17 09:30 - Labs Result Diagrams: 10/04/17 08:49 10/04/17 08:49 Labs: Laboratory Results - last 24 hr 10/03/17 10/03/17 10/04/17 15:42 21:20 06:05 WBC RBC Hgb Hct MCV MCH MCHC RDW Plt Count MPV Neut % (Auto) Lymph % (Auto) [place] % (Auto) Eos % (Auto) Baso % (Auto) Neut # (Auto) Lymph # (Auto) [place] # (Auto) Eos # (Auto) Baso # (Auto) ESR Sodium Potassium Chloride Carbon Dioxide Anion Gap BUN Creatinine Est GFR ( Amer) Est GFR (Non-Af Amer) POC Glucose (mg/dL) 182 H 101 65 Random Glucose Calcium Total Bilirubin AST ALT Alkaline Phosphatase C-React Prot High Sens Total Protein Albumin Globulin Albumin/Globulin Ratio Homocysteine Free T4 TSH 3rd Generation 10/04/17 10/04/17 10/04/17 06:07 06:48 08:49 WBC RBC Hgb Hct MCV MCH MCHC RDW Plt Count MPV Neut % (Auto) Lymph % (Auto) [place] % (Auto) Eos % (Auto) Baso % (Auto) Neut # (Auto) Lymph # (Auto) [place] # (Auto) Eos # (Auto) Baso # (Auto) ESR 46 H Sodium Potassium Chloride Carbon Dioxide Anion Gap BUN Creatinine Est GFR ( Amer) Est GFR (Non-Af Amer) POC Glucose (mg/dL) 62 L 284 H Random Glucose Calcium Total Bilirubin AST ALT Alkaline Phosphatase C-React Prot High Sens Total Protein Albumin Globulin Albumin/Globulin Ratio Homocysteine Free T4 TSH 3rd Generation 10/04/17 10/04/17 10/04/17 08:49 08:49 08:49 WBC 5.0 RBC 4.26 Hgb 12.1 Hct 35.5 MCV 83.2 MCH 28.3 MCHC 34.0 RDW 13.7 Plt Count 253 MPV 8.8 Neut % (Auto) 48.5 L Lymph % (Auto) 37.9 [place] % (Auto) 7.7 Eos % (Auto) 4.7 H Baso % (Auto) 1.2 Neut # (Auto) 2.4 Lymph # (Auto) 1.9 [place] # (Auto) 0.4 Eos # (Auto) 0.2 Baso # (Auto) 0.1 ESR Sodium Potassium Chloride Carbon Dioxide Anion Gap BUN Creatinine Est GFR ( Amer) Est GFR (Non-Af Amer) POC Glucose (mg/dL) Random Glucose Calcium Total Bilirubin AST ALT Alkaline Phosphatase C-React Prot High Sens 7.74 H Total Protein Albumin Globulin Albumin/Globulin Ratio Homocysteine 14.7 H Free T4 1.55 TSH 3rd Generation 1.55 10/04/17 10/04/17 10/04/17 08:49 09:13 11:09 WBC RBC Hgb Hct MCV MCH MCHC RDW Plt Count MPV Neut % (Auto) Lymph % (Auto) [place] % (Auto) Eos % (Auto) Baso % (Auto) Neut # (Auto) Lymph # (Auto) [place] # (Auto) Eos # (Auto) Baso # (Auto) ESR Sodium 144 Potassium 4.3 Chloride 105 Carbon Dioxide 26 Anion Gap 17 BUN 23 H Creatinine 1.3 H Est GFR ( Amer) 49 Est GFR (Non-Af Amer) 41 POC Glucose (mg/dL) 225 H 347 H Random Glucose 198 H Calcium 9.6 Total Bilirubin 0.5 AST 18 ALT 21 Alkaline Phosphatase 77 C-React Prot High Sens Total Protein 7.8 Albumin 4.4 Globulin 3.4 Albumin/Globulin Ratio 1.3 Homocysteine Free T4 TSH 3rd Generation Assessment & Plan - Assessment and Plan (Free Text) Assessment: 67 year old female with past medical history of HTn, HLD, IDDM, CAD is admitted to ICU post cardiac cath for CAD in LAD. CAD - Cardiology, Dr. Vanegas is consulted. pt underwent cardiac cath today. Was unable to advance cardiac cath due to vasospasm. Plan [place] [facility] [place] cardiothoracic surgeon, Dr. Beauchamp tomorrow - Cardiothoracic surgeon, Dr. Beauchamp consulted - Will start pt on heparin drip cardiac protocol starting at 3 pm - Continue Aspirin 81 mg po qd - Coreg 3.125 mg po bid hold for SBP< 100 and HR <60 - D dimer was elevated on admission. CTA of chest was negative for PE HTN - Continue lisinopril 20 mg po qd, hydralazine 10 mg IVP q6 prn HLD - Continue statin therapy with Crstor IDDM - ISS - Accuchecks ACHS - hypoglycemic protocol - hold oral hypoglycemic agents - HgbA1c is 9.1 Prophylaxis - Protonix - SCDs - Heparin D.WCrystal Messer - Date & Time Date: 10/04/17 Time: 14:00 <Faraz Messer - Last Filed: 10/04/17 18:13> Meds - Medications Medications: Current Medications Acetaminophen (Tylenol 325mg Tab) 650 mg PO Q6 PRN PRN Reason: Headache Aspirin (Ecotrin) 81 mg PO DAILY [facility] Last Admin: 10/04/17 10:09 Dose: Not Given Carvedilol (Coreg) 3.125 mg PO BID [facility] Last Admin: 10/04/17 17:33 Dose: 3.125 mg Dextrose (Dextrose 50% Inj) 0 ml IV STAT PRN; Protocol PRN Reason: Hypoglycemia Protocol Last Admin: 10/04/17 06:10 Dose: 50 ml Dextrose (Glutose 15) 0 gm PO ONCE PRN; Protocol PRN Reason: Hypoglycemia Protocol Glipizide (Glucotrol Xl) 5 mg PO DAILY [facility] Last Admin: 10/04/17 10:20 Dose: Not Given Glipizide (Glucotrol Xl) 15 mg PO HS [facility] Last Admin: 10/03/17 23:04 Dose: Not Given Glucagon (Glucagen Diagnostic Kit) 0 mg IM STAT PRN; Protocol PRN Reason: Hypoglycemia Protocol Hydralazine HCl (Apresoline) 10 mg IVP Q6H PRN PRN Reason: Systolic Blood Pressure Last Admin: 10/02/17 14:55 Dose: 10 mg Dextrose (Dextrose 5% In Water 1000 Ml) 1,000 mls @ 0 mls/hr IV .Q0M PRN; Protocol; Per Protocol PRN Reason: Hypoglycemia Protocol Sodium Chloride (Sodium Chloride 0.9%) 1,000 mls @ 80 mls/hr IV .[id number] [facility] Last Admin: 10/04/17 03:48 Dose: 80 mls/hr Heparin Sodium/Sodium Chloride (Heparin 35338 Units/250ml 1/2 Normal Saline) 25 ,000 units in 250 mls @ 7.893 mls/hr IV .Q24H PRN; Protocol; 12 UNITS/KG/HR PRN Reason: PROTOCOL Last Admin: 10/04/17 15:13 Dose: 12 units/kg/hr, 7.893 mls/hr Insulin Aspart (Novolog) 6 unit SC AC [facility] Last Admin: 10/04/17 17:34 Dose: 6 unit Insulin Aspart (Novolog) 0 unit SC ACHS [facility] PRN Reason: Protocol Last Admin: 10/04/17 17:34 Dose: 5 unit Insulin Human NPH (Novolin N) 12 unit SC HS [facility] Last Admin: 10/03/17 21:45 Dose: 12 unit Lisinopril (Zestril) 20 mg PO DAILY [facility] Last Admin: 10/04/17 10:20 Dose: Not Given Oxycodone/Acetaminophen (Percocet 5/325 Mg Tab) 1 tab PO Q4H PRN PRN Reason: Chest pain Stop: 10/05/17 10:16 Pantoprazole Sodium (Protonix Inj) 40 mg IVP DAILY [facility] Last Admin: 10/04/17 10:20 Dose: Not Given Rosuvastatin Calcium (Crestor) 20 mg PO HS [facility] Results - Vital Signs Recent Vital Signs: Last Vital Signs Temp 98 F 10/04/17 13:00 Pulse 119 H 10/04/17 15:00 Resp 17 10/04/17 15:00 BP 153/76 H 10/04/17 15:00 Pulse Ox 97 10/04/17 15:00 - Labs Result Diagrams: 10/04/17 08:49 10/04/17 08:49 Labs: Laboratory Results - last 24 hr 10/03/17 10/04/17 10/04/17 21:20 06:05 06:07 WBC RBC Hgb Hct MCV MCH MCHC RDW Plt Count MPV Neut % (Auto) Lymph % (Auto) [place] % (Auto) Eos % (Auto) Baso % (Auto) Neut # (Auto) Lymph # (Auto) [place] # (Auto) Eos # (Auto) Baso # (Auto) ESR APTT Sodium Potassium Chloride Carbon Dioxide Anion Gap BUN Creatinine Est GFR ( Amer) Est GFR (Non-Af Amer) POC Glucose (mg/dL) 101 65 62 L Random Glucose Calcium Total Bilirubin AST ALT Alkaline Phosphatase Total Creatine Kinase CK-MB (Mass) Troponin I C-React Prot High Sens Total Protein Albumin Globulin Albumin/Globulin Ratio Homocysteine Free T4 TSH 3rd Generation Ur Random Creatinine Ur Random Sodium RPR 10/04/17 10/04/17 10/04/17 06:48 08:49 08:49 WBC RBC Hgb Hct MCV MCH MCHC RDW Plt Count MPV Neut % (Auto) Lymph % (Auto) [place] % (Auto) Eos % (Auto) Baso % (Auto) Neut # (Auto) Lymph # (Auto) [place] # (Auto) Eos # (Auto) Baso # (Auto) ESR 46 H APTT Sodium Potassium Chloride Carbon Dioxide Anion Gap BUN Creatinine Est GFR ( Amer) Est GFR (Non-Af Amer) POC Glucose (mg/dL) 284 H Random Glucose Calcium Total Bilirubin AST ALT Alkaline Phosphatase Total Creatine Kinase CK-MB (Mass) Troponin I C-React Prot High Sens 7.74 H Total Protein Albumin Globulin Albumin/Globulin Ratio Homocysteine Free T4 1.55 TSH 3rd Generation 1.55 Ur Random Creatinine Ur Random Sodium RPR 10/04/17 10/04/17 10/04/17 08:49 08:49 08:49 WBC 5.0 RBC 4.26 Hgb 12.1 Hct 35.5 MCV 83.2 MCH 28.3 MCHC 34.0 RDW 13.7 Plt Count 253 MPV 8.8 Neut % (Auto) 48.5 L Lymph % (Auto) 37.9 [place] % (Auto) 7.7 Eos % (Auto) 4.7 H Baso % (Auto) 1.2 Neut # (Auto) 2.4 Lymph # (Auto) 1.9 [place] # (Auto) 0.4 Eos # (Auto) 0.2 Baso # (Auto) 0.1 ESR APTT Sodium Potassium Chloride Carbon Dioxide Anion Gap BUN Creatinine Est GFR ( Amer) Est GFR (Non-Af Amer) POC Glucose (mg/dL) Random Glucose Calcium Total Bilirubin AST ALT Alkaline Phosphatase Total Creatine Kinase CK-MB (Mass) Troponin I C-React Prot High Sens Total Protein Albumin Globulin Albumin/Globulin Ratio Homocysteine 14.7 H Free T4 TSH 3rd Generation Ur Random Creatinine Ur Random Sodium RPR Nonreactive 10/04/17 10/04/17 10/04/17 08:49 09:13 11:09 WBC RBC Hgb Hct MCV MCH MCHC RDW Plt Count MPV Neut % (Auto) Lymph % (Auto) [place] % (Auto) Eos % (Auto) Baso % (Auto) Neut # (Auto) Lymph # (Auto) [place] # (Auto) Eos # (Auto) Baso # (Auto) ESR APTT Sodium 144 Potassium 4.3 Chloride 105 Carbon Dioxide 26 Anion Gap 17 BUN 23 H Creatinine 1.3 H Est GFR ( Amer) 49 Est GFR (Non-Af Amer) 41 POC Glucose (mg/dL) 225 H 347 H Random Glucose 198 H Calcium 9.6 Total Bilirubin 0.5 AST 18 ALT 21 Alkaline Phosphatase 77 Total Creatine Kinase CK-MB (Mass) Troponin I C-React Prot High Sens Total Protein 7.8 Albumin 4.4 Globulin 3.4 Albumin/Globulin Ratio 1.3 Homocysteine Free T4 TSH 3rd Generation Ur Random Creatinine Ur Random Sodium RPR 10/04/17 10/04/17 10/04/17 14:25 15:26 15:26 WBC RBC Hgb Hct MCV MCH MCHC RDW Plt Count MPV Neut % (Auto) Lymph % (Auto) [place] % (Auto) Eos % (Auto) Baso % (Auto) Neut # (Auto) Lymph # (Auto) [place] # (Auto) Eos # (Auto) Baso # (Auto) ESR APTT 30 Sodium Potassium Chloride Carbon Dioxide Anion Gap BUN Creatinine Est GFR ( Amer) Est GFR (Non-Af Amer) POC Glucose (mg/dL) Random Glucose Calcium Total Bilirubin AST ALT Alkaline Phosphatase Total Creatine Kinase 120 CK-MB (Mass) 1.75 Troponin I < 0.0120 C-React Prot High Sens Total Protein Albumin Globulin Albumin/Globulin Ratio Homocysteine Free T4 TSH 3rd Generation Ur Random Creatinine 23.0 Ur Random Sodium 35 RPR Attending/Attestation - Attestation I have personally seen and examined this patient.: Yes I have fully participated in the care of the patient.: Yes I have reviewed all pertinent clinical information: Yes Notes (Text): 10/04/17 18:12 patient seen and examined in the intensive care unit. Status post cardiac cath with significant LAD disease For transfer to [facility]] for cardiac surgery Continue anticoagulation Continue tridil Continue present treatment for now
[2017-10-04] MEDS ORDERED: Heparin25000 units/250ml 1/2NS 25,000 UNITS/250 ML BAG IV PRN (15:00)
[2017-10-04 15:58] LABS: CK-MB 1.75 ng/mL (0.0-3.38)
--- NOTE | 2017-10-04 20:53 | CP.PCM.PN ---
Subjective - Date & Time of Evaluation Date of Evaluation: 10/04/17 Time of Evaluation: 12:20 - Subjective Subjective: clinically same Objective - Vital Signs/Intake and Output Vital Signs (last 24 hours): Temp Pulse Resp BP Pulse Ox 98 F 96 H 19 119/75 96 10/04/17 13:00 10/04/17 20:44 10/04/17 20:44 10/04/17 20:44 10/04/17 20:44 Intake and Output: 10/04/17 10/05/17 18:59 06:59 Intake Total 451.2 57.8 Output Total 400 300 Balance 51.2 -242.2 - Medications Medications: Current Medications Acetaminophen (Tylenol 325mg Tab) 650 mg PO Q6 PRN PRN Reason: Headache Aspirin (Ecotrin) 81 mg PO DAILY [facility] Last Admin: 10/04/17 10:09 Dose: Not Given Carvedilol (Coreg) 3.125 mg PO BID [facility] Last Admin: 10/04/17 17:33 Dose: 3.125 mg Dextrose (Dextrose 50% Inj) 0 ml IV STAT PRN; Protocol PRN Reason: Hypoglycemia Protocol Last Admin: 10/04/17 06:10 Dose: 50 ml Dextrose (Glutose 15) 0 gm PO ONCE PRN; Protocol PRN Reason: Hypoglycemia Protocol Glipizide (Glucotrol Xl) 5 mg PO DAILY [facility] Last Admin: 10/04/17 10:20 Dose: Not Given Glipizide (Glucotrol Xl) 15 mg PO HS [facility] Last Admin: 10/03/17 23:04 Dose: Not Given Glucagon (Glucagen Diagnostic Kit) 0 mg IM STAT PRN; Protocol PRN Reason: Hypoglycemia Protocol Hydralazine HCl (Apresoline) 10 mg IVP Q6H PRN PRN Reason: Systolic Blood Pressure Last Admin: 10/02/17 14:55 Dose: 10 mg Dextrose (Dextrose 5% In Water 1000 Ml) 1,000 mls @ 0 mls/hr IV .Q0M PRN; Protocol; Per Protocol PRN Reason: Hypoglycemia Protocol Sodium Chloride (Sodium Chloride 0.9%) 1,000 mls @ 80 mls/hr IV .[id number] [facility] Last Admin: 10/04/17 03:48 Dose: 80 mls/hr Heparin Sodium/Sodium Chloride (Heparin 51536 Units/250ml 1/2 Normal Saline) 25 ,000 units in 250 mls @ 7.893 mls/hr IV .Q24H PRN; Protocol; 12 UNITS/KG/HR PRN Reason: PROTOCOL Last Admin: 10/04/17 15:13 Dose: 12 units/kg/hr, 7.893 mls/hr Insulin Aspart (Novolog) 6 unit SC AC [facility] Last Admin: 10/04/17 17:34 Dose: 6 unit Insulin Aspart (Novolog) 0 unit SC ACHS [facility] PRN Reason: Protocol Last Admin: 10/04/17 17:34 Dose: 5 unit Insulin Human NPH (Novolin N) 12 unit SC HS [facility] Last Admin: 10/03/17 21:45 Dose: 12 unit Lisinopril (Zestril) 20 mg PO DAILY [facility] Last Admin: 10/04/17 10:20 Dose: Not Given Oxycodone/Acetaminophen (Percocet 5/325 Mg Tab) 1 tab PO Q4H PRN PRN Reason: Chest pain Stop: 10/05/17 10:16 Pantoprazole Sodium (Protonix Inj) 40 mg IVP DAILY [facility] Last Admin: 10/04/17 10:20 Dose: Not Given Rosuvastatin Calcium (Crestor) [address] [facility] - Labs Labs: 10/04/17 08:49 10/04/17 08:49 APTT 30 SECONDS (21-34) 10/04/17 15:26 - Constitutional Appears: Well - Head Exam Head Exam: ATRAUMATIC, NORMAL INSPECTION, NORMOCEPHALIC - Eye Exam Eye Exam: EOMI, Normal appearance, PERRL Pupil Exam: NORMAL ACCOMODATION, PERRL - ENT Exam ENT Exam: Mucous Membranes Moist, Normal Exam - Neck Exam Neck Exam: Full ROM, Normal Inspection. absent: Lymphadenopathy - Respiratory Exam Respiratory Exam: Decreased Breath Sounds - Cardiovascular Exam Cardiovascular Exam: REGULAR RHYTHM, +S1, +S2 - GI/Abdominal Exam GI & Abdominal Exam: Soft, Diminished Bowel Sounds - Rectal Exam Rectal Exam: Deferred
[2017-10-04] MEDS: (Novolin N) Insulin Human Isophane (NPH) 100 u/ml 10 ml vial SC SCH (21:42)
[2017-10-04 21:49] LABS: CK-MB 1.55 ng/mL (0.0-3.38)
[2017-10-05 05:19] LABS: BASO % 0.6 % (0.0-2.0); EOS # 0.1 K/uL (0.0-0.7); EOS % 0.9 % (0.0-4.0); HEMOGLOBIN 10.9 g/dL (11.0-16.0); LYMPH # 1.3 K/uL (1.0-4.3); LYMPH % 17.4 % (20.0-40.0); MEAN CELL VOLUME 82.3 fL (81.0-99.0); MEAN CORPUSCULAR HEMOGLOBIN 28.1 pg (27.0-31.0); MEAN CORPUSCULAR HGB CONC 34.1 g/dL (33.0-37.0); MEAN PLATELET VOLUME 8.4 fL (7.2-11.7); MONO # 0.7 K/uL (0.0-0.8); MONO % 9.1 % (0.0-10.0); NEUT # 5.2 K/uL (1.8-7.0); RBC 3.86 Mil/uL (3.80-5.20); RED CELL DISTRIBUTION WIDTH 13.6 % (11.5-14.5); WHITE BLOOD COUNT 7.3 K/uL (4.8-10.8)
[2017-10-05 05:42] LABS: ALB/GLOB RATIO 1.5 (1.0-2.1)
[2017-10-05] MEDS: (Novolog) Insulin Aspart, Recombinant 100 u/ml 10 ml vial SC SCH (08:53)
[2017-10-05] MEDS ORDERED: (Novolog) Insulin Aspart, Recombinant 100 u/ml 10 ml vial SC SCH ×3 (10:15→13:15)
[2017-10-05] MEDS ORDERED: Potassium Phosphate 15 MMOLE in Sodium Chloride 0.9% 250 ML IVPB ONE (10:36)
[2017-10-05] MEDS ORDERED: Sodium Bicarbonate (8.4%) 50 Meq Syringe IVP ONE (10:37)
[2017-10-05] MEDS ORDERED: Potassium Chloride 20 mEq ER Tab PO SCH (10:45)
[2017-10-05] MEDS ORDERED: (Novolog Mix 70/30) Insulin Aspart/Insulin Aspar 100 units/ml SC STA ×2 (10:48→11:47)
[2017-10-05] MEDS: Sodium Chloride 0.9% 1,000 ML IV SCH ×2 (11:33→13:04)
--- NOTE | 2017-10-05 12:43 | PN ---
DATE: 10/05/2017 TIME OF EVALUATION: 07:10 a.m. NEUROLOGICAL PROBLEM: Acute coronary syndrome and headache. PHYSICAL EXAMINATION: VITAL SIGNS: Blood pressure 145/79, mean arterial pressure of 107, respiratory rate 18, and temperature afebrile with a pulse rate of 99. GENERAL: The patient is up and talking to her family members on the phone. She denies any new complaints. CHEST: Comfortable and she is breathing comfortable. No headache. Examination is unchanged. Her recent cardiac cath results have been reviewed and she is scheduled to have bypass surgery at [facility] today. Her neuro status is stable. She is neurologically cleared for the same procedure as mentioned above. The patient will be followed when she comes back to the [facility] or she will be followed as outpatient. Kvng Blackman MD
--- NOTE | 2017-10-05 13:00 | CP.CCUPN ---
<Lucia Lennon - Last Filed: 10/05/17 14:22> CCU Subjective - Physician Review Subjective (Free Text): 10/05/17 12:52 Pt seen and examined at bedside this am. No acute events overnight. Pt planned to be transferred today to [facility]. Currently no complaints of CP, SOB, abd pain, N/V/D/C, F/C. CCU Objective - Vital Signs / Intake & Output Intake and Output (Last 8hrs): Intake & Output 10/04/17 10/05/17 10/05/17 22:59 06:59 14:59 Intake Total 764.6 688 86 Output Total 700 Balance 64.6 688 86 Intake: IV 30 Intake, IV Amount 464.6 688 86 Right Forearm 54.6 48 6 Right Hand 410 640 80 Oral 270 Output: Urine 700 Urine, Voided 700 - Physical Exam Head: Positive for: Atraumatic, Normocephalic Pupils: Positive for: PERRL Mouth: Positive for: Moist Mucous Membranes Respiratory/Chest: Positive for: Clear to Auscultation, Good Air Exchange. Negative for: Respiratory Distress, Accessory Muscle Use, Wheezes, Rales, Rhonchi Cardiovascular: Positive for: Regular Rate and Rhythm, Normal S1, S2. Negative for: Murmurs, Rub, Gallop Abdomen: Positive for: Normal Bowel Sounds. Negative for: Tenderness, Distention, Peritoneal Signs, Guarding Lower Extremity: Positive for: Normal Inspection. Negative for: Edema Neurological: Positive for: GCS=15, CN II-XII Intact, Speech Normal Skin: Positive for: Warm, Dry, Normal Color. Negative for: Rashes Psychiatric: Positive for: Alert, Oriented x 3, Normal Insight, Normal Concentration - Medications Active Medications: Active Medications Generic Name Dose Route Start Last Admin Trade Name Freq PRN Reason Stop Dose Admin Acetaminophen 650 mg 10/02/17 14:29 Tylenol 325mg Tab PO Q6 PRN Headache Aspirin 81 mg 10/03/17 10:00 10/05/17 09:00 Ecotrin PO 81 mg DAILY DANIEL Administration Carvedilol 3.125 mg 10/04/17 14:00 10/05/17 08:59 Coreg PO 3.125 mg BID DANIEL Administration Dextrose 0 ml 10/02/17 14:49 10/04/17 06:10 Dextrose 50% Inj IV 50 ml STAT PRN Administration Hypoglycemia Protocol Protocol Dextrose 0 gm 10/02/17 14:49 Glutose 15 PO ONCE PRN Hypoglycemia Protocol Protocol Glipizide 5 mg 10/03/17 10:00 10/04/17 10:20 Glucotrol Xl PO Not Given DAILY DANIEL Glipizide 15 mg 10/02/17 22:00 10/04/17 21:42 Glucotrol Xl PO 15 mg HS DANIEL Administration Glucagon 0 mg 10/02/17 14:49 Glucagen Diagnostic Kit IM STAT PRN Hypoglycemia Protocol Protocol Hydralazine HCl 10 mg 10/02/17 11:52 10/02/17 14:55 Apresoline IVP 10 mg Q6H PRN Administration Systolic Blood Pressure Dextrose 1,000 mls @ 0 mls/hr 10/02/17 14:49 Dextrose 5% In Water 1000 Ml IV .Q0M PRN Hypoglycemia Protocol Protocol Per Protocol Sodium Chloride 1,000 mls @ 80 mls/hr 10/03/17 10:00 10/05/17 11:33 Sodium Chloride 0.9% IV 80 mls/hr .[id number] DANIEL Administration Heparin Sodium/Sodium Chloride 25,000 units in 250 mls @ 7.893 mls/hr 15:00 10/04/17 22:40 Heparin 76186 Units/250ml 1/2 Normal Saline IV 9 units/kg/hr .Q24H PRN 5.919 mls/hr PROTOCOL Titration Protocol 12 UNITS/KG/HR Insulin Aspart 0 unit 10/05/17 10:15 10/05/17 10:15 Novolog SC Not Given ACHS DANIEL Protocol Insulin Aspart 8 unit 10/05/17 11:30 10/05/17 12:48 Novolog SC 8 unit AC DANIEL Administration Insulin Human NPH 18 unit 10/05/17 22:00 Novolin N SC HS DANIEL Lisinopril 20 mg 10/02/17 14:30 10/05/17 09:08 Zestril PO 20 mg DAILY DANIEL Administration Pantoprazole Sodium 40 mg 10/02/17 10:00 10/05/17 09:00 Protonix Inj IVP 40 mg DAILY DANIEL Administration Rosuvastatin Calcium 20 mg 10/04/17 22:00 10/04/17 21:42 Crestor PO 20 mg HS DANIEL Administration - Patient Studies Lab Studies: Lab Studies 10/05/17 10/05/17 10/05/17 Range/Units 12:00 11:42 07:50 WBC (4.8-10.8) K/uL RBC (3.80-5.20) Mil/uL Hgb (11.0-16.0) g/dL Hct (34.0-47.0) % MCV (81.0-99.0) fL MCH (27.0-31.0) pg MCHC (33.0-37.0) g/dL RDW (11.5-14.5) % Plt Count (130-400) K/uL MPV (7.2-11.7) fL Neut % (Auto) (50.0-75.0) % Lymph % (Auto) (20.0-40.0) % Runnels % (Auto) (0.0-10.0) % Eos % (Auto) (0.0-4.0) % Baso % (Auto) (0.0-2.0) % Neut # (Auto) (1.8-7.0) K/uL Lymph # (Auto) (1.0-4.3) K/uL Runnels # (Auto) (0.0-0.8) K/uL Eos # (Auto) (0.0-0.7) K/uL Baso # (Auto) (0.0-0.2) K/uL APTT 78 H (21-34) SECONDS Sodium (132-148) mmol/L Potassium (3.6-5.2) mmol/L Chloride (98-107) mmol/L Carbon Dioxide (22-30) mmol/L Anion Gap (10-20) BUN (7-17) mg/dL Creatinine (0.7-1.2) mg/dL Est GFR ( Amer) Est GFR (Non-Af Amer) POC Glucose (mg/dL) 316 H 330 H (65-110) mg/dL Random Glucose (65-105) mg/dL Calcium (8.6-10.4) mg/dl Phosphorus (2.5-4.5) mg/dL Magnesium (1.6-2.3) mg/dL Total Bilirubin (0.2-1.3) mg/dL AST (14-36) U/L ALT (9-52) U/L Alkaline Phosphatase (38-126) U/L Total Creatine Kinase (30-135) U/L CK-MB (Mass) (0.0-3.38) ng/mL Troponin I (0.00-0.120) ng/mL Total Protein (6.3-8.3) g/dL Albumin (3.5-5.0) g/dL Globulin (2.2-3.9) gm/dL Albumin/Globulin Ratio (1.0-2.1) Ur Random Creatinine mg/dL Ur Random Sodium mmol/L RPR (NONREACTIVE) Lyme Disease Screen index 10/05/17 10/05/17 10/05/17 Range/Units 07:42 05:06 05:06 WBC (4.8-10.8) K/uL RBC (3.80-5.20) Mil/uL Hgb (11.0-16.0) g/dL Hct (34.0-47.0) % MCV (81.0-99.0) fL MCH (27.0-31.0) pg MCHC (33.0-37.0) g/dL RDW (11.5-14.5) % Plt Count (130-400) K/uL MPV (7.2-11.7) fL Neut % (Auto) (50.0-75.0) % Lymph % (Auto) (20.0-40.0) % Runnels % (Auto) (0.0-10.0) % Eos % (Auto) (0.0-4.0) % Baso % (Auto) (0.0-2.0) % Neut # (Auto) (1.8-7.0) K/uL Lymph # (Auto) (1.0-4.3) K/uL Runnels # (Auto) (0.0-0.8) K/uL Eos # (Auto) (0.0-0.7) K/uL Baso # (Auto) (0.0-0.2) K/uL APTT 81 H D (21-34) SECONDS Sodium 139 (132-148) mmol/L Potassium 4.5 (3.6-5.2) mmol/L Chloride 105 (98-107) mmol/L Carbon Dioxide 22 (22-30) mmol/L Anion Gap 16 (10-20) BUN 27 H (7-17) mg/dL Creatinine 1.3 H (0.7-1.2) mg/dL Est GFR ( Amer) 49 Est GFR (Non-Af Amer) 41 POC Glucose (mg/dL) 327 H (65-110) mg/dL Random Glucose 358 H (65-105) mg/dL Calcium 9.0 (8.6-10.4) mg/dl Phosphorus 3.5 (2.5-4.5) mg/dL Magnesium 2.0 (1.6-2.3) mg/dL Total Bilirubin 0.6 (0.2-1.3) mg/dL AST 12 L D (14-36) U/L ALT 20 (9-52) U/L Alkaline Phosphatase 70 (38-126) U/L Total Creatine Kinase (30-135) U/L CK-MB (Mass) (0.0-3.38) ng/mL Troponin I (0.00-0.120) ng/mL Total Protein 6.7 (6.3-8.3) g/dL Albumin 4.0 (3.5-5.0) g/dL Globulin 2.7 (2.2-3.9) gm/dL Albumin/Globulin Ratio 1.5 (1.0-2.1) Ur Random Creatinine mg/dL Ur Random Sodium mmol/L RPR (NONREACTIVE) Lyme Disease Screen index 10/05/17 10/04/17 10/04/17 Range/Units 05:06 21:22 21:22 WBC 7.3 (4.8-10.8) K/uL RBC 3.86 (3.80-5.20) Mil/uL Hgb 10.9 L (11.0-16.0) g/dL Hct 31.8 L (34.0-47.0) % MCV 82.3 (81.0-99.0) fL MCH 28.1 (27.0-31.0) pg MCHC 34.1 (33.0-37.0) g/dL RDW 13.6 (11.5-14.5) % Plt Count 230 (130-400) K/uL MPV 8.4 (7.2-11.7) fL Neut % (Auto) 72.0 (50.0-75.0) % Lymph % (Auto) 17.4 L (20.0-40.0) % Runnels % (Auto) 9.1 (0.0-10.0) % Eos % (Auto) 0.9 (0.0-4.0) % Baso % (Auto) 0.6 (0.0-2.0) % Neut # (Auto) 5.2 (1.8-7.0) K/uL Lymph # (Auto) 1.3 (1.0-4.3) K/uL Runnels # (Auto) 0.7 (0.0-0.8) K/uL Eos # (Auto) 0.1 (0.0-0.7) K/uL Baso # (Auto) 0.0 (0.0-0.2) K/uL APTT 101 H* D (21-34) SECONDS Sodium (132-148) mmol/L Potassium (3.6-5.2) mmol/L Chloride (98-107) mmol/L Carbon Dioxide (22-30) mmol/L Anion Gap (10-20) BUN (7-17) mg/dL Creatinine (0.7-1.2) mg/dL Est GFR ( Amer) Est GFR (Non-Af Amer) POC Glucose (mg/dL) (65-110) mg/dL Random Glucose (65-105) mg/dL Calcium (8.6-10.4) mg/dl Phosphorus (2.5-4.5) mg/dL Magnesium (1.6-2.3) mg/dL Total Bilirubin (0.2-1.3) mg/dL AST (14-36) U/L ALT (9-52) U/L Alkaline Phosphatase (38-126) U/L Total Creatine Kinase 116 (30-135) U/L CK-MB (Mass) 1.55 (0.0-3.38) ng/mL Troponin I < 0.0120 (0.00-0.120) ng/mL Total Protein (6.3-8.3) g/dL Albumin (3.5-5.0) g/dL Globulin (2.2-3.9) gm/dL Albumin/Globulin Ratio (1.0-2.1) Ur Random Creatinine mg/dL Ur Random Sodium mmol/L RPR (NONREACTIVE) Lyme Disease Screen index 10/04/17 10/04/17 10/04/17 Range/Units 21:04 16:12 15:26 WBC (4.8-10.8) K/uL RBC (3.80-5.20) Mil/uL Hgb (11.0-16.0) g/dL Hct (34.0-47.0) % MCV (81.0-99.0) fL MCH (27.0-31.0) pg MCHC (33.0-37.0) g/dL RDW (11.5-14.5) % Plt Count (130-400) K/uL MPV (7.2-11.7) fL Neut % (Auto) (50.0-75.0) % Lymph % (Auto) (20.0-40.0) % Runnels % (Auto) (0.0-10.0) % Eos % (Auto) (0.0-4.0) % Baso % (Auto) (0.0-2.0) % Neut # (Auto) (1.8-7.0) K/uL Lymph # (Auto) (1.0-4.3) K/uL Runnels # (Auto) (0.0-0.8) K/uL Eos # (Auto) (0.0-0.7) K/uL Baso # (Auto) (0.0-0.2) K/uL APTT 30 (21-34) SECONDS Sodium (132-148) mmol/L Potassium (3.6-5.2) mmol/L Chloride (98-107) mmol/L Carbon Dioxide (22-30) mmol/L Anion Gap (10-20) BUN (7-17) mg/dL Creatinine (0.7-1.2) mg/dL Est GFR ( Amer) Est GFR (Non-Af Amer) POC Glucose (mg/dL) 277 H 456 H* (65-110) mg/dL Random Glucose (65-105) mg/dL Calcium (8.6-10.4) mg/dl Phosphorus (2.5-4.5) mg/dL Magnesium (1.6-2.3) mg/dL Total Bilirubin (0.2-1.3) mg/dL AST (14-36) U/L ALT (9-52) U/L Alkaline Phosphatase (38-126) U/L Total Creatine Kinase (30-135) U/L CK-MB (Mass) (0.0-3.38) ng/mL Troponin I (0.00-0.120) ng/mL Total Protein (6.3-8.3) g/dL Albumin (3.5-5.0) g/dL Globulin (2.2-3.9) gm/dL Albumin/Globulin Ratio (1.0-2.1) Ur Random Creatinine mg/dL Ur Random Sodium mmol/L RPR (NONREACTIVE) Lyme Disease Screen index 10/04/17 10/04/17 10/04/17 Range/Units 15:26 14:25 08:49 WBC (4.8-10.8) K/uL RBC (3.80-5.20) Mil/uL Hgb (11.0-16.0) g/dL Hct (34.0-47.0) % MCV (81.0-99.0) fL MCH (27.0-31.0) pg MCHC (33.0-37.0) g/dL RDW (11.5-14.5) % Plt Count (130-400) K/uL MPV (7.2-11.7) fL Neut % (Auto) (50.0-75.0) % Lymph % (Auto) (20.0-40.0) % Runnels % (Auto) (0.0-10.0) % Eos % (Auto) (0.0-4.0) % Baso % (Auto) (0.0-2.0) % Neut # (Auto) (1.8-7.0) K/uL Lymph # (Auto) (1.0-4.3) K/uL Runnels # (Auto) (0.0-0.8) K/uL Eos # (Auto) (0.0-0.7) K/uL Baso # (Auto) (0.0-0.2) K/uL APTT (21-34) SECONDS Sodium (132-148) mmol/L Potassium (3.6-5.2) mmol/L Chloride (98-107) mmol/L Carbon Dioxide (22-30) mmol/L Anion Gap (10-20) BUN (7-17) mg/dL Creatinine (0.7-1.2) mg/dL Est GFR ( Amer) Est GFR (Non-Af Amer) POC Glucose (mg/dL) (65-110) mg/dL Random Glucose (65-105) mg/dL Calcium (8.6-10.4) mg/dl Phosphorus (2.5-4.5) mg/dL Magnesium (1.6-2.3) mg/dL Total Bilirubin (0.2-1.3) mg/dL AST (14-36) U/L ALT (9-52) U/L Alkaline Phosphatase (38-126) U/L Total Creatine Kinase 120 (30-135) U/L CK-MB (Mass) 1.75 (0.0-3.38) ng/mL Troponin I < 0.0120 (0.00-0.120) ng/mL Total Protein (6.3-8.3) g/dL Albumin (3.5-5.0) g/dL Globulin (2.2-3.9) gm/dL Albumin/Globulin Ratio (1.0-2.1) Ur Random Creatinine 23.0 mg/dL Ur Random Sodium 35 mmol/L RPR (NONREACTIVE) Lyme Disease Screen <0.90 index 10/04/17 Range/Units 08:49 WBC (4.8-10.8) K/uL RBC (3.80-5.20) Mil/uL Hgb (11.0-16.0) g/dL Hct (34.0-47.0) % MCV (81.0-99.0) fL MCH (27.0-31.0) pg MCHC (33.0-37.0) g/dL RDW (11.5-14.5) % Plt Count (130-400) K/uL MPV (7.2-11.7) fL Neut % (Auto) (50.0-75.0) % Lymph % (Auto) (20.0-40.0) % Runnels % (Auto) (0.0-10.0) % Eos % (Auto) (0.0-4.0) % Baso % (Auto) (0.0-2.0) % Neut # (Auto) (1.8-7.0) K/uL Lymph # (Auto) (1.0-4.3) K/uL Runnels # (Auto) (0.0-0.8) K/uL Eos # (Auto) (0.0-0.7) K/uL Baso # (Auto) (0.0-0.2) K/uL APTT (21-34) SECONDS Sodium (132-148) mmol/L Potassium (3.6-5.2) mmol/L Chloride (98-107) mmol/L Carbon Dioxide (22-30) mmol/L Anion Gap (10-20) BUN (7-17) mg/dL Creatinine (0.7-1.2) mg/dL Est GFR ( Amer) Est GFR (Non-Af Amer) POC Glucose (mg/dL) (65-110) mg/dL Random Glucose (65-105) mg/dL Calcium (8.6-10.4) mg/dl Phosphorus (2.5-4.5) mg/dL Magnesium (1.6-2.3) mg/dL Total Bilirubin (0.2-1.3) mg/dL AST (14-36) U/L ALT (9-52) U/L Alkaline Phosphatase (38-126) U/L Total Creatine Kinase (30-135) U/L CK-MB (Mass) (0.0-3.38) ng/mL Troponin I (0.00-0.120) ng/mL Total Protein (6.3-8.3) g/dL Albumin (3.5-5.0) g/dL Globulin (2.2-3.9) gm/dL Albumin/Globulin Ratio (1.0-2.1) Ur Random Creatinine mg/dL Ur Random Sodium mmol/L RPR Nonreactive (NONREACTIVE) Lyme Disease Screen index Laboratory Results - last 24 hr 10/04/17 10/04/17 10/04/17 08:49 08:49 14:25 WBC RBC Hgb Hct MCV MCH MCHC RDW Plt Count MPV Neut % (Auto) Lymph % (Auto) Runnels % (Auto) Eos % (Auto) Baso % (Auto) Neut # (Auto) Lymph # (Auto) Runnels # (Auto) Eos # (Auto) Baso # (Auto) APTT Sodium Potassium Chloride Carbon Dioxide Anion Gap BUN Creatinine Est GFR ( Amer) Est GFR (Non-Af Amer) POC Glucose (mg/dL) Random Glucose Calcium Phosphorus Magnesium Total Bilirubin AST ALT Alkaline Phosphatase Total Creatine Kinase CK-MB (Mass) Troponin I Total Protein Albumin Globulin Albumin/Globulin Ratio Ur Random Creatinine 23.0 Ur Random Sodium 35 RPR Nonreactive Lyme Disease Screen <0.90 10/04/17 10/04/17 10/04/17 15:26 15:26 16:12 WBC RBC Hgb Hct MCV MCH MCHC RDW Plt Count MPV Neut % (Auto) Lymph % (Auto) Runnels % (Auto) Eos % (Auto) Baso % (Auto) Neut # (Auto) Lymph # (Auto) Runnels # (Auto) Eos # (Auto) Baso # (Auto) APTT 30 Sodium Potassium Chloride Carbon Dioxide Anion Gap BUN Creatinine Est GFR ( Amer) Est GFR (Non-Af Amer) POC Glucose (mg/dL) 456 H* Random Glucose Calcium Phosphorus Magnesium Total Bilirubin AST ALT Alkaline Phosphatase Total Creatine Kinase 120 CK-MB (Mass) 1.75 Troponin I < 0.0120 Total Protein Albumin Globulin Albumin/Globulin Ratio Ur Random Creatinine Ur Random Sodium RPR Lyme Disease Screen 10/04/17 10/04/17 10/04/17 21:04 21:22 21:22 WBC RBC Hgb Hct MCV MCH MCHC RDW Plt Count MPV Neut % (Auto) Lymph % (Auto) Runnels % (Auto) Eos % (Auto) Baso % (Auto) Neut # (Auto) Lymph # (Auto) Runnels # (Auto) Eos # (Auto) Baso # (Auto) APTT 101 H* D Sodium Potassium Chloride Carbon Dioxide Anion Gap BUN Creatinine Est GFR ( Amer) Est GFR (Non-Af Amer) POC Glucose (mg/dL) 277 H Random Glucose Calcium Phosphorus Magnesium Total Bilirubin AST ALT Alkaline Phosphatase Total Creatine Kinase 116 CK-MB (Mass) 1.55 Troponin I < 0.0120 Total Protein Albumin Globulin Albumin/Globulin Ratio Ur Random Creatinine Ur Random Sodium RPR Lyme Disease Screen 10/05/17 10/05/17 10/05/17 05:06 05:06 05:06 WBC 7.3 RBC 3.86 Hgb 10.9 L Hct 31.8 L MCV 82.3 MCH 28.1 MCHC 34.1 RDW 13.6 Plt Count 230 MPV 8.4 Neut % (Auto) 72.0 Lymph % (Auto) 17.4 L Runnels % (Auto) 9.1 Eos % (Auto) 0.9 Baso % (Auto) 0.6 Neut # (Auto) 5.2 Lymph # (Auto) 1.3 Runnels # (Auto) 0.7 Eos # (Auto) 0.1 Baso # (Auto) 0.0 APTT 81 H D Sodium 139 Potassium 4.5 Chloride 105 Carbon Dioxide 22 Anion Gap 16 BUN 27 H Creatinine 1.3 H Est GFR ( Amer) 49 Est GFR (Non-Af Amer) 41 POC Glucose (mg/dL) Random Glucose 358 H Calcium 9.0 Phosphorus 3.5 Magnesium 2.0 Total Bilirubin 0.6 AST 12 L D ALT 20 Alkaline Phosphatase 70 Total Creatine Kinase CK-MB (Mass) Troponin I Total Protein 6.7 Albumin 4.0 Globulin 2.7 Albumin/Globulin Ratio 1.5 Ur Random Creatinine Ur Random Sodium RPR Lyme Disease Screen 10/05/17 10/05/17 10/05/17 07:42 07:50 11:42 WBC RBC Hgb Hct MCV MCH MCHC RDW Plt Count MPV Neut % (Auto) Lymph % (Auto) Runnels % (Auto) Eos % (Auto) Baso % (Auto) Neut # (Auto) Lymph # (Auto) Runnels # (Auto) Eos # (Auto) Baso # (Auto) APTT 78 H Sodium Potassium Chloride Carbon Dioxide Anion Gap BUN Creatinine Est GFR ( Amer) Est GFR (Non-Af Amer) POC Glucose (mg/dL) 327 H 330 H Random Glucose Calcium Phosphorus Magnesium Total Bilirubin AST ALT Alkaline Phosphatase Total Creatine Kinase CK-MB (Mass) Troponin I Total Protein Albumin Globulin Albumin/Globulin Ratio Ur Random Creatinine Ur Random Sodium RPR Lyme Disease Screen 10/05/17 12:00 WBC RBC Hgb Hct MCV MCH MCHC RDW Plt Count MPV Neut % (Auto) Lymph % (Auto) Runnels % (Auto) Eos % (Auto) Baso % (Auto) Neut # (Auto) Lymph # (Auto) Runnels # (Auto) Eos # (Auto) Baso # (Auto) APTT Sodium Potassium Chloride Carbon Dioxide Anion Gap BUN Creatinine Est GFR ( Amer) Est GFR (Non-Af Amer) POC Glucose (mg/dL) 316 H Random Glucose Calcium Phosphorus Magnesium Total Bilirubin AST ALT Alkaline Phosphatase Total Creatine Kinase CK-MB (Mass) Troponin I Total Protein Albumin Globulin Albumin/Globulin Ratio Ur Random Creatinine Ur Random Sodium RPR Lyme Disease Screen Fingerstick Blood Sugar Results: 316 Review of Systems - Constitutional Constitutional: absent: Fever, Chills - EENT Eyes: absent: Blurred Vision, Change in Vision Nose/Mouth/Throat: absent: Nasal Congestion, Nasal Discharge - Cardiovascular Cardiovascular: absent: Chest Pain, Chest Pain with Activity, Dyspnea, Dyspnea on Exertion, Edema, Leg Edema, Pedal Edema - Respiratory Respiratory: absent: Cough, Dyspnea, Wheezing, Chest Congestion - Gastrointestinal Gastrointestinal: absent: Abdominal Pain, Constipation, Diarrhea, Nausea, Vomiting - Genitourinary Genitourinary: absent: Dysuria, Urinary Frequency, Urinary Urgency - Musculoskeletal Musculoskeletal: absent: Back Pain, Numbness, Tingling - Neurological Neurological: absent: Dizziness, Headaches, Syncope, Tingling - Psychiatric Psychiatric: absent: Anxiety, Depression Critical Care Progress Note - Prophylaxis GI Prophylaxis GI: PPI - Prophylaxis DVT Prophylaxis DVT: SCDs - Nutrition Nutrition: Nutrition Category Date Time Status ADA [Consistent Carbohydrate] [DIET] Diets 10/04/17 Lunch Active Assessment/Plan - Assessment and Plan (Free Text) Assessment: 67 year old female with past medical history of HTn, HLD, IDDM, CAD is admitted to ICU post cardiac cath for CAD in LAD. CAD - Cardiology, Dr. Vanegas is consulted - Cardiothoracic surgeon, Dr. Beauchamp consulted. Plan for transfer to [facility] today - Will start pt on heparin drip cardiac protocol starting at 3 pm - Continue Aspirin 81 mg po qd - Coreg 3.125 mg po bid hold for SBP< 100 and HR <60 - D dimer was elevated on admission. CTA of chest was negative for PE HTN - Continue lisinopril 20 mg po qd, hydralazine 10 mg IVP q6 prn HLD - Continue statin therapy with Crstor IDDM - ISS - Accuchecks ACHS - hypoglycemic protocol - hold oral hypoglycemic agents - HgbA1c is 9.1 Prophylaxis - Protonix - SCDs - Heparin Jeff Messer Dispo: Transfer to [facility] for open heart surgery - Date & Time Date: 10/05/17 Time: 13:04 <Michael Muir - Last Filed: 10/05/17 19:14> CCU Objective - Vital Signs / Intake & Output Intake and Output (Last 8hrs): Intake & Output 10/05/17 10/05/17 10/05/17 06:59 14:59 22:59 Intake Total 688 1088 86 Output Total 950 Balance 688 138 86 Intake: Intake, IV Amount 689 688 86 Right Forearm 48 48 6 Right Hand 640 640 80 Oral 400 Output: Urine 950 Urine, Voided 950 Other: # Voids Urine, Voided 1 - Patient Studies Lab Studies: Microbiology Studies 10/04/17 15:58 MRSA Culture (Admit) - Final Nose MRSA NOT DETECTED Lab Studies 10/05/17 10/05/17 10/05/17 Range/Units 12:00 11:42 07:50 WBC (4.8-10.8) K/uL RBC (3.80-5.20) Mil/uL Hgb (11.0-16.0) g/dL Hct (34.0-47.0) % MCV (81.0-99.0) fL MCH (27.0-31.0) pg MCHC (33.0-37.0) g/dL RDW (11.5-14.5) % Plt Count (130-400) K/uL MPV (7.2-11.7) fL Neut % (Auto) (50.0-75.0) % Lymph % (Auto) (20.0-40.0) % Runnels % (Auto) (0.0-10.0) % Eos % (Auto) (0.0-4.0) % Baso % (Auto) (0.0-2.0) % Neut # (Auto) (1.8-7.0) K/uL Lymph # (Auto) (1.0-4.3) K/uL Runnels # (Auto) (0.0-0.8) K/uL Eos # (Auto) (0.0-0.7) K/uL Baso # (Auto) (0.0-0.2) K/uL APTT 78 H (21-34) SECONDS Sodium (132-148) mmol/L Potassium (3.6-5.2) mmol/L Chloride (98-107) mmol/L Carbon Dioxide (22-30) mmol/L Anion Gap (10-20) BUN (7-17) mg/dL Creatinine (0.7-1.2) mg/dL Est GFR ( Amer) Est GFR (Non-Af Amer) POC Glucose (mg/dL) 316 H 330 H (65-110) mg/dL Random Glucose (65-105) mg/dL Calcium (8.6-10.4) mg/dl Phosphorus (2.5-4.5) mg/dL Magnesium (1.6-2.3) mg/dL Total Bilirubin (0.2-1.3) mg/dL AST (14-36) U/L ALT (9-52) U/L Alkaline Phosphatase (38-126) U/L Total Creatine Kinase (30-135) U/L CK-MB (Mass) (0.0-3.38) ng/mL Troponin I (0.00-0.120) ng/mL Total Protein (6.3-8.3) g/dL Albumin (3.5-5.0) g/dL Globulin (2.2-3.9) gm/dL Albumin/Globulin Ratio (1.0-2.1) Lyme Disease Screen index 10/05/17 10/05/17 10/05/17 Range/Units 07:42 05:06 05:06 WBC (4.8-10.8) K/uL RBC (3.80-5.20) Mil/uL Hgb (11.0-16.0) g/dL Hct (34.0-47.0) % MCV (81.0-99.0) fL MCH (27.0-31.0) pg MCHC (33.0-37.0) g/dL RDW (11.5-14.5) % Plt Count (130-400) K/uL MPV (7.2-11.7) fL Neut % (Auto) (50.0-75.0) % Lymph % (Auto) (20.0-40.0) % Runnels % (Auto) (0.0-10.0) % Eos % (Auto) (0.0-4.0) % Baso % (Auto) (0.0-2.0) % Neut # (Auto) (1.8-7.0) K/uL Lymph # (Auto) (1.0-4.3) K/uL Runnels # (Auto) (0.0-0.8) K/uL Eos # (Auto) (0.0-0.7) K/uL Baso # (Auto) (0.0-0.2) K/uL APTT 81 H D (21-34) SECONDS Sodium 139 (132-148) mmol/L Potassium 4.5 (3.6-5.2) mmol/L Chloride 105 (98-107) mmol/L Carbon Dioxide 22 (22-30) mmol/L Anion Gap 16 (10-20) BUN 27 H (7-17) mg/dL Creatinine 1.3 H (0.7-1.2) mg/dL Est GFR ( Amer) 49 Est GFR (Non-Af Amer) 41 POC Glucose (mg/dL) 327 H (65-110) mg/dL Random Glucose 358 H (65-105) mg/dL Calcium 9.0 (8.6-10.4) mg/dl Phosphorus 3.5 (2.5-4.5) mg/dL Magnesium 2.0 (1.6-2.3) mg/dL Total Bilirubin 0.6 (0.2-1.3) mg/dL AST 12 L D (14-36) U/L ALT 20 (9-52) U/L Alkaline Phosphatase 70 (38-126) U/L Total Creatine Kinase (30-135) U/L CK-MB (Mass) (0.0-3.38) ng/mL Troponin I (0.00-0.120) ng/mL Total Protein 6.7 (6.3-8.3) g/dL Albumin 4.0 (3.5-5.0) g/dL Globulin 2.7 (2.2-3.9) gm/dL Albumin/Globulin Ratio 1.5 (1.0-2.1) Lyme Disease Screen index 10/05/17 10/04/17 10/04/17 Range/Units 05:06 21:22 21:22 WBC 7.3 (4.8-10.8) K/uL RBC 3.86 (3.80-5.20) Mil/uL Hgb 10.9 L (11.0-16.0) g/dL Hct 31.8 L (34.0-47.0) % MCV 82.3 (81.0-99.0) fL MCH 28.1 (27.0-31.0) pg MCHC 34.1 (33.0-37.0) g/dL RDW 13.6 (11.5-14.5) % Plt Count 230 (130-400) K/uL MPV 8.4 (7.2-11.7) fL Neut % (Auto) 72.0 (50.0-75.0) % Lymph % (Auto) 17.4 L (20.0-40.0) % Runnels % (Auto) 9.1 (0.0-10.0) % Eos % (Auto) 0.9 (0.0-4.0) % Baso % (Auto) 0.6 (0.0-2.0) % Neut # (Auto) 5.2 (1.8-7.0) K/uL Lymph # (Auto) 1.3 (1.0-4.3) K/uL Runnels # (Auto) 0.7 (0.0-0.8) K/uL Eos # (Auto) 0.1 (0.0-0.7) K/uL Baso # (Auto) 0.0 (0.0-0.2) K/uL APTT 101 H* D (21-34) SECONDS Sodium (132-148) mmol/L Potassium (3.6-5.2) mmol/L Chloride (98-107) mmol/L Carbon Dioxide (22-30) mmol/L Anion Gap (10-20) BUN (7-17) mg/dL Creatinine (0.7-1.2) mg/dL Est GFR ( Amer) Est GFR (Non-Af Amer) POC Glucose (mg/dL) (65-110) mg/dL Random Glucose (65-105) mg/dL Calcium (8.6-10.4) mg/dl Phosphorus (2.5-4.5) mg/dL Magnesium (1.6-2.3) mg/dL Total Bilirubin (0.2-1.3) mg/dL AST (14-36) U/L ALT (9-52) U/L Alkaline Phosphatase (38-126) U/L Total Creatine Kinase 116 (30-135) U/L CK-MB (Mass) 1.55 (0.0-3.38) ng/mL Troponin I < 0.0120 (0.00-0.120) ng/mL Total Protein (6.3-8.3) g/dL Albumin (3.5-5.0) g/dL Globulin (2.2-3.9) gm/dL Albumin/Globulin Ratio (1.0-2.1) Lyme Disease Screen index 10/04/17 10/04/17 10/04/17 Range/Units 21:04 16:12 08:49 WBC (4.8-10.8) K/uL RBC (3.80-5.20) Mil/uL Hgb (11.0-16.0) g/dL Hct (34.0-47.0) % MCV (81.0-99.0) fL MCH (27.0-31.0) pg MCHC (33.0-37.0) g/dL RDW (11.5-14.5) % Plt Count (130-400) K/uL MPV (7.2-11.7) fL Neut % (Auto) (50.0-75.0) % Lymph % (Auto) (20.0-40.0) % Runnels % (Auto) (0.0-10.0) % Eos % (Auto) (0.0-4.0) % Baso % (Auto) (0.0-2.0) % Neut # (Auto) (1.8-7.0) K/uL Lymph # (Auto) (1.0-4.3) K/uL Runnels # (Auto) (0.0-0.8) K/uL Eos # (Auto) (0.0-0.7) K/uL Baso # (Auto) (0.0-0.2) K/uL APTT (21-34) SECONDS Sodium (132-148) mmol/L Potassium (3.6-5.2) mmol/L Chloride (98-107) mmol/L Carbon Dioxide (22-30) mmol/L Anion Gap (10-20) BUN (7-17) mg/dL Creatinine (0.7-1.2) mg/dL Est GFR ( Amer) Est GFR (Non-Af Amer) POC Glucose (mg/dL) 277 H 456 H* (65-110) mg/dL Random Glucose (65-105) mg/dL Calcium (8.6-10.4) mg/dl Phosphorus (2.5-4.5) mg/dL Magnesium (1.6-2.3) mg/dL Total Bilirubin (0.2-1.3) mg/dL AST (14-36) U/L ALT (9-52) U/L Alkaline Phosphatase (38-126) U/L Total Creatine Kinase (30-135) U/L CK-MB (Mass) (0.0-3.38) ng/mL Troponin I (0.00-0.120) ng/mL Total Protein (6.3-8.3) g/dL Albumin (3.5-5.0) g/dL Globulin (2.2-3.9) gm/dL Albumin/Globulin Ratio (1.0-2.1) Lyme Disease Screen <0.90 index Laboratory Results - last 24 hr 10/04/17 10/04/17 10/04/17 08:49 16:12 21:04 WBC RBC Hgb Hct MCV MCH MCHC RDW Plt Count MPV Neut % (Auto) Lymph % (Auto) Runnels % (Auto) Eos % (Auto) Baso % (Auto) Neut # (Auto) Lymph # (Auto) Runnels # (Auto) Eos # (Auto) Baso # (Auto) APTT Sodium Potassium Chloride Carbon Dioxide Anion Gap BUN Creatinine Est GFR ( Amer) Est GFR (Non-Af Amer) POC Glucose (mg/dL) 456 H* 277 H Random Glucose Calcium Phosphorus Magnesium Total Bilirubin AST ALT Alkaline Phosphatase Total Creatine Kinase CK-MB (Mass) Troponin I Total Protein Albumin Globulin Albumin/Globulin Ratio Lyme Disease Screen <0.90 10/04/17 10/04/17 10/05/17 21:22 21:22 05:06 WBC 7.3 RBC 3.86 Hgb 10.9 L Hct 31.8 L MCV 82.3 MCH 28.1 MCHC 34.1 RDW 13.6 Plt Count 230 MPV 8.4 Neut % (Auto) 72.0 Lymph % (Auto) 17.4 L [place] % (Auto) 9.1 Eos % (Auto) 0.9 Baso % (Auto) 0.6 Neut # (Auto) 5.2 Lymph # (Auto) 1.3 [place] # (Auto) 0.7 Eos # (Auto) 0.1 Baso # (Auto) 0.0 APTT 101 H* D Sodium Potassium Chloride Carbon Dioxide Anion Gap BUN Creatinine Est GFR ( Amer) Est GFR (Non-Af Amer) POC Glucose (mg/dL) Random Glucose Calcium Phosphorus Magnesium Total Bilirubin AST ALT Alkaline Phosphatase Total Creatine Kinase 116 CK-MB (Mass) 1.55 Troponin I < 0.0120 Total Protein Albumin Globulin Albumin/Globulin Ratio Lyme Disease Screen 10/05/17 10/05/17 10/05/17 05:06 05:06 07:42 WBC RBC Hgb Hct MCV MCH MCHC RDW Plt Count MPV Neut % (Auto) Lymph % (Auto) [place] % (Auto) Eos % (Auto) Baso % (Auto) Neut # (Auto) Lymph # (Auto) [place] # (Auto) Eos # (Auto) Baso # (Auto) APTT 81 H D Sodium 139 Potassium 4.5 Chloride 105 Carbon Dioxide 22 Anion Gap 16 BUN 27 H Creatinine 1.3 H Est GFR ( Amer) 49 Est GFR (Non-Af Amer) 41 POC Glucose (mg/dL) 327 H Random Glucose 358 H Calcium 9.0 Phosphorus 3.5 Magnesium 2.0 Total Bilirubin 0.6 AST 12 L D ALT 20 Alkaline Phosphatase 70 Total Creatine Kinase CK-MB (Mass) Troponin I Total Protein 6.7 Albumin 4.0 Globulin 2.7 Albumin/Globulin Ratio 1.5 Lyme Disease Screen 10/05/17 10/05/17 10/05/17 07:50 11:42 12:00 WBC RBC Hgb Hct MCV MCH MCHC RDW Plt Count MPV Neut % (Auto) Lymph % (Auto) [place] % (Auto) Eos % (Auto) Baso % (Auto) Neut # (Auto) Lymph # (Auto) [place] # (Auto) Eos # (Auto) Baso # (Auto) APTT 78 H Sodium Potassium Chloride Carbon Dioxide Anion Gap BUN Creatinine Est GFR ( Amer) Est GFR (Non-Af Amer) POC Glucose (mg/dL) 330 H 316 H Random Glucose Calcium Phosphorus Magnesium Total Bilirubin AST ALT Alkaline Phosphatase Total Creatine Kinase CK-MB (Mass) Troponin I Total Protein Albumin Globulin Albumin/Globulin Ratio Lyme Disease Screen Critical Care Progress Note - Nutrition Nutrition: Nutrition Category Date Time Status ADA [Consistent Carbohydrate] [DIET] Diets 10/04/17 Lunch Active Attending/Attestation - Attestation I have personally seen and examined this patient.: Yes I have fully participated in the care of the patient.: Yes I have reviewed all pertinent clinical information: Yes Notes (Text): 10/05/17 19:14 Today: September The Patient was seen and examined at the bedside, Medical records reviewed, and management issues were discussed and formulated with the house staff. I have reviewed all the relevant clinical, laboratory, hemodynamic, radiographic data and medications Events reviewed Pain issues, skin care, head of the bed elevation, glycemic control were addressed. Agree with above resident's assessment and treatment plans of care as transcribed in Dr. Carney's note.
--- NOTE | 2017-10-05 14:40 | CP.PCM.PN ---
Subjective - Date & Time of Evaluation Date of Evaluation: 10/05/17 Time of Evaluation: 13:00 - Subjective Subjective: clinically same Objective - Vital Signs/Intake and Output Vital Signs (last 24 hours): Temp Pulse Resp BP Pulse Ox 98 F 106 H 20 151/87 H 97 10/04/17 13:00 10/05/17 07:00 10/05/17 07:00 10/05/17 06:44 10/05/17 01:00 Intake and Output: 10/05/17 10/05/17 06:59 18:59 Intake Total 1101.4 86 Output Total 300 Balance 801.4 86 - Medications Medications: Current Medications Acetaminophen (Tylenol 325mg Tab) 650 mg PO Q6 PRN PRN Reason: Headache Aspirin (Ecotrin) 81 mg PO DAILY [facility] Last Admin: 10/05/17 09:00 Dose: 81 mg Carvedilol (Coreg) 3.125 mg PO BID [facility] Last Admin: 10/05/17 08:59 Dose: 3.125 mg Dextrose (Dextrose 50% Inj) 0 ml IV STAT PRN; Protocol PRN Reason: Hypoglycemia Protocol Last Admin: 10/04/17 06:10 Dose: 50 ml Dextrose (Glutose 15) 0 gm PO ONCE PRN; Protocol PRN Reason: Hypoglycemia Protocol Glipizide (Glucotrol Xl) 5 mg PO DAILY [facility] Last Admin: 10/04/17 10:20 Dose: Not Given Glipizide (Glucotrol Xl) 15 mg PO HS [facility] Last Admin: 10/04/17 21:42 Dose: 15 mg Glucagon (Glucagen Diagnostic Kit) 0 mg IM STAT PRN; Protocol PRN Reason: Hypoglycemia Protocol Hydralazine HCl (Apresoline) 10 mg IVP Q6H PRN PRN Reason: Systolic Blood Pressure Last Admin: 10/02/17 14:55 Dose: 10 mg Dextrose (Dextrose 5% In Water 1000 Ml) 1,000 mls @ 0 mls/hr IV .Q0M PRN; Protocol; Per Protocol PRN Reason: Hypoglycemia Protocol Sodium Chloride (Sodium Chloride 0.9%) 1,000 mls @ 80 mls/hr IV .[id number] [facility] Last Admin: 10/05/17 13:04 Dose: 80 mls/hr Heparin Sodium/Sodium Chloride (Heparin 22090 Units/250ml 1/2 Normal Saline) 25 ,000 units in 250 mls @ 7.893 mls/hr IV .Q24H PRN; Protocol; 12 UNITS/KG/HR PRN Reason: PROTOCOL Last Titration: 10/04/17 22:40 Dose: 9 units/kg/hr, 5.919 mls/hr Insulin Aspart (Novolog) 8 unit SC AC [facility] Last Admin: 10/05/17 12:48 Dose: 8 unit Insulin Aspart (Novolog) 0 unit SC ACHS DANIEL PRN Reason: Protocol Last Admin: 10/05/17 13:05 Dose: 6 unit Insulin Human NPH (Novolin N) 18 unit SC HS [facility] Lisinopril (Zestril) 20 mg PO DAILY [facility] Last Admin: 10/05/17 09:08 Dose: 20 mg Pantoprazole Sodium (Protonix Inj) 40 mg IVP DAILY [facility] Last Admin: 10/05/17 09:00 Dose: 40 mg Rosuvastatin Calcium (Crestor) 20 mg PO HS [facility] Last Admin: 10/04/17 21:42 Dose: 20 mg - Labs Labs: 10/05/17 05:06 10/05/17 05:06 APTT 78 SECONDS (21-34) H 10/05/17 11:42 - Constitutional Appears: Well - Head Exam Head Exam: ATRAUMATIC, NORMAL INSPECTION, NORMOCEPHALIC - Eye Exam Eye Exam: EOMI, Normal appearance, PERRL Pupil Exam: NORMAL ACCOMODATION, PERRL - ENT Exam ENT Exam: Mucous Membranes Moist, Normal Exam - Neck Exam Neck Exam: Full ROM, Normal Inspection. absent: Lymphadenopathy - Respiratory Exam Respiratory Exam: Decreased Breath Sounds - Cardiovascular Exam Cardiovascular Exam: REGULAR RHYTHM, +S1, +S2 - GI/Abdominal Exam GI & Abdominal Exam: Soft, Diminished Bowel Sounds - Rectal Exam Rectal Exam: Deferred
[2017-10-05 15:43] VITALS: BP 165/73; PULSE 95; RESP 14; O2SAT 100
[2017-10-05 16:04] VITALS: TEMP 98.1
[2017-10-05] MEDS ORDERED: (Novolog Mix 70/30) Insulin Aspart/Insulin Aspar 100 units/ml SC SCH (16:30)
[2017-10-05] MEDS ORDERED: (Novolin N) Insulin Human Isophane (NPH) 100 u/ml 10 ml vial SC SCH (22:00)
[2017-10-06] MEDS ORDERED: (Novolog Mix 70/30) Insulin Aspart/Insulin Aspar 100 units/ml SC SCH ×2 (08:00→16:30)
--- NOTE | 2017-10-06 12:03 | CARD ---
APPROVED REPORT Date of service: 10/04/2017 EKG Measurement Heart [id number] NM [id number] <Conclusion> Sinus tachycardia Right atrial enlargement Right bundle branch block Abnormal ECG
== END 2017-10-05 17:01 | disposition short-term general hospital (02) | DRG 287 ==
LOC: C.ER 00:49 → C.9E 02:17 → C.5S 14:05 → C.9I 10-04 10:30
PROVIDERS: ADMIT Internal Medicine Nephrology; ATTEND Internal Medicine Nephrology
PROC: 4A023N7 Measurement of Cardiac Sampling and Pressure, Left Heart, Percutaneous Approach (ICD-10-PCS; principal; 2017-10-04)
PROC: B2151ZZ Fluoroscopy of Left Heart using Low Osmolar Contrast (ICD-10-PCS; 2017-10-04)
PROC: B2111ZZ Fluoroscopy of Multiple Coronary Arteries using Low Osmolar Contrast (ICD-10-PCS; 2017-10-04)
DX: I25.110 Atherosclerotic heart disease of native coronary artery with unstable angina pectoris (principal); N17.9 Acute kidney failure, unspecified; I45.10 Unspecified right bundle-branch block; I10 Essential (primary) hypertension; E11.9 Type 2 diabetes mellitus without complications; J45.909 Unspecified asthma, uncomplicated; E78.5 Hyperlipidemia, unspecified; E78.00 Pure hypercholesterolemia, unspecified; R79.1 Abnormal coagulation profile; Z79.4 Long term (current) use of insulin; Z90.49 Acquired absence of other specified parts of digestive tract; Z91.041 Radiographic dye allergy status; Z90.710 Acquired absence of both cervix and uterus; Z87.891 Personal history of nicotine dependence

== ENCOUNTER 2018-01-07 | Inpatient (IN) | payer MEDICARE ==
--- NOTE | 2018-01-07 00:40 | C.PDOC ---
History Of Present Illness Patient presents to ED c/o palpiations/sensation of her heart racing since approx 10 am today, but worse tonight when she tried to go to bed. She feels like her heart racing "in her neck". Patient denies chest pain, SOB, cough, fe judson, abdominal pain, nausea/vomiting. PMhx of HTN, DM II, CAD, CABG (10/05/2017) and PPM insertion (10/18/17) at [facility] [place]. Time Seen by Provider: 01/07/18 00:14 Chief Complaint (Nursing): Palpitations History Per: Patient History/Exam Limitations: no limitations Onset/Duration Of Symptoms: Hrs Current Symptoms Are (Timing): Still Present Severity: Moderate Past Medical History Reviewed: Historical Data, Nursing Documentation, Vital Signs Vital Signs: Last Vital Signs Temp Pulse 131 H 01/07/18 00:09 Resp 16 01/07/18 00:09 BP 178/115 H 01/07/18 00:09 Pulse Ox 97 01/07/18 00:09 - Medical History PMH: Asthma, Diabetes, HTN, Hypercholesterolemia Surgical History: CABG, Cholecystectomy, Pacemaker - [facility] Procedures CORONAR ARTERIOGR-2 CATH (06/01/01) FLUOROSCOPY OF LEFT HEART USING LOW OSMOLAR CONTRAST (10/02/17) FLUOROSCOPY OF MULT COR ART USING L OSM CONTRAST (10/02/17) FLUOROSCOPY OF THORACIC AORTA USING LOW OSMOLAR CONTRAST (02/19/17) LEFT HEART CARDIAC CATH (06/01/01) LT HEART ANGIOCARDIOGRAM (06/01/01) MEASURE OF CARDIAC SAMPL & PRESSURE, L HEART, PERC APPROACH (10/02/17) Family History: States: No Known Family Hx - Social History Hx Tobacco Use: No Hx Alcohol Use: No Hx Substance Use: No - Immunization History Hx Tetanus Toxoid Vaccination: No Hx Influenza Vaccination: Yes Hx Pneumococcal Vaccination: Yes Review Of Systems Constitutional: Negative for: Fever, Chills Cardiovascular: Positive for: Palpitations. Negative for: Chest Pain Respiratory: Negative for: Cough, Shortness of Breath Gastrointestinal: Negative for: Nausea, Vomiting, Abdominal Pain Physical Exam - Physical Exam Appears: Well, Non-toxic, Other (in mild discomfort ) Oral Mucosa: Moist Chest: Other (healed midline sternotomy scar, left upper chest pacemaker) Cardiovascular: Rhythm Regular (tachycardic) Respiratory: Normal Breath Sounds, No Rales, No Rhonchi, No Wheezing Extremity: Normal ROM, No Pedal Edema ED Course And Treatment - Laboratory Results Result Diagrams: 01/07/18 00:40 01/07/18 00:40 ECG: Interpreted By Me, Viewed By Me (ventricular pacing at 131 bpm, left axis deviation, no acute ST changes ) ECG Interpretation: Abnormal (pacemaker mediated tachycardia) O2 Sat by Pulse Oximetry: 97 (RA) Pulse Ox Interpretation: Normal Progress Note: Blood work, EKG, CXR ordered and reviewed. Call placed to [facility] at 12:30am - pending call back from rep. EKG - pacemaker mediated tachycardia, will apply magnet to pacer. 1:00AM- Spoke with [facility] rep Tonny Brown, agrees with applying magnet to pacemaker. He is on his way to emergency call at another facility, but will come see patient in the AM. 1:30am - Discussed patient with live games dealer Dr. Irene, patient is stable for telemetry floor. repeat EKG - NSR 95 bpm, left axis deviation, RBBB, Q waves III, aVF, no acute ST changes Disposition - Disposition Forms: [employer] (Serbian)
[2018-01-07 00:42] LABS: BASO % 0.1 % (0.0-2.0); EOS # 0.2 K/uL (0.0-0.7); EOS % 2.2 % (0.0-4.0); HEMOGLOBIN 12.6 g/dL (11.0-16.0); LYMPH # 2.6 K/uL (1.0-4.3); MEAN CELL VOLUME 83.9 fL (81.0-99.0); MEAN CORPUSCULAR HEMOGLOBIN 28.3 pg (27.0-31.0); MEAN CORPUSCULAR HGB CONC 33.7 g/dL (33.0-37.0); MEAN PLATELET VOLUME 8.5 fL (7.2-11.7); MONO # 0.6 K/uL (0.0-0.8); MONO % 7.9 % (0.0-10.0); NEUT # 4.1 K/uL (1.8-7.0); NEUT % 54.8 % (50.0-75.0); NRBC % 0.1 % (0.0-2.0); RBC 4.45 Mil/uL (3.80-5.20); RED CELL DISTRIBUTION WIDTH 14.2 % (11.5-14.5); WHITE BLOOD COUNT 7.4 K/uL (4.8-10.8)
[2018-01-07 00:55] LABS: ALB/GLOB RATIO 1.5 (1.0-2.1); ALBUMIN 4.8 g/dL (3.5-5.0); CALCIUM 9.8 mg/dl (8.6-10.4)
[2018-01-07 01:26] LABS: CK-MB 1.45 ng/mL (0.0-3.38); TROPONIN I 0.141 ng/mL (0.00-0.120)
--- NOTE | 2018-01-07 04:17 | CP.PCM.HP ---
History of Present Illness - History of Present Illness History of Present Illness: Atul Garvey PGY-1, H&P for Dr. 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 Pt states that she had a constant feeling of her heart racing since this morning (01/06). Pt states that earlier in the day she had an episode of dizziness while walking, which required her to stop. Pt did not fall, or pass out. She states the dizziness improved on its own and she continued about her day. Palpitations worsened this evening, when at 1030/11 pm she felt the plapitations in her neck (right greater than left), which prompted her to go to the ER. Pt denies fever, chills, headache, visual changes, chest pain, dyspnea, abdominal pain, n/v/d, change in medications, recent alcohol use, pleuritic cp, leg pain. Pt states that her left ankle has been slightly swollen since they removed her vein for CABG. Pt received ASA 325 mg PO in the ED. ER contacted [facility] rep Tonny Brown, who suggested placing magnet over pacemaker to break tachycardia; pt has been NSR since (in 80s). PMD: Alexandr Cardiology: Guilherme CTS for CABG: Daniel HAWKINS cardio: Dotty Endo: Henna Jamison PMH: CAD involving LAD with CABG (10/05/2017) and PPM insertion (10/18/17) [place] [facility] [place] IDDM2, HTN PSH: gallbladder removal, total abdominal hysterectomy w/ complication of extensive adhesions causing pederson-enteritis which eventually resulted in 1yr of colostomy and eventual reversal, hand surgery FamHx: Dad at age 55 from [place], brother with stroke and MIx2 (in 50s), mother had a brain tumor Meds: See MAR Allx: Metronidazole, Contrast dye Social: previous smoker, stopped 30 years ago, social etoh use, denies illicit drug use. Lives alone in [place]. Present on Admission - Present on Admission Any Indicators Present on Admission: No Review of Systems - Review of Systems All systems: reviewed and no additional remarkable complaints except (as per HPI) Past Patient History - Infectious Disease Hx of Infectious Diseases: None - Past Medical History & Family History Past Medical History?: Yes - Past Social History Smoking Status: Former Smoker - CARDIAC Hx Hypercholesterolemia: Yes Hx Hypertension: Yes Hx Pacemaker: Yes - PULMONARY Hx Asthma: Yes - ENDOCRINE/METABOLIC Hx Diabetes Mellitus Type 2: Yes - HEMATOLOGICAL/ONCOLOGICAL Hx Blood Disorders: No - INTEGUMENTARY Hx Dermatological Problems: No - MUSCULOSKELETAL/RHEUMATOLOGICAL Hx Falls: No - GASTROINTESTINAL Hx Gastrointestinal Disorders: No Hx Colostomy: Yes (x1 year w/ reversal) - GENITOURINARY/GYNECOLOGICAL Hx Genitourinary Disorders: No - PSYCHIATRIC Hx Substance Use: No - SURGICAL HISTORY Hx Cholecystectomy: Yes Hx Coronary Artery Bypass Graft: Yes - ANESTHESIA Hx Anesthesia: Yes Hx Anesthesia Reactions: No Hx Malignant Hyperthermia: No Meds Allergies/Adverse Reactions: Allergies Allergy/AdvReac Type Severity Reaction Status Date / Time metronidazole [From Flagyl] Allergy Verified 01/07/18 00:12 contrast dye Allergy Uncoded 01/07/18 00:12 Physical Exam - Constitutional Appears: Non-toxic, No Acute Distress - Head Exam Head Exam: ATRAUMATIC, NORMAL INSPECTION - Eye Exam Eye Exam: EOMI, Normal appearance - ENT Exam ENT Exam: Mucous Membranes Moist - Neck Exam Neck exam: Positive for: Normal Inspection Additional comments: (-) bruit bilaterally - Respiratory Exam Respiratory Exam: Chest Wall Tenderness (along suture lines of midline sterniotomy scar; healing well; (-) erythema, (-) fluctuance, (-) bleeding), Clear to Auscultation Bilateral. absent: Decreased Breath Sounds, Rales, Rhonchi, Wheezes, Respiratory Distress - Cardiovascular Exam Cardiovascular Exam: REGULAR RHYTHM, +S1, +S2. absent: Tachycardia - GI/Abdominal Exam GI & Abdominal Exam: Normal Bowel Sounds, Soft. absent: Distended, Firm, Guarding, Rebound, Rigid, Tenderness Additional comments: (+) multiple old, well healed surgical scars - Extremities Exam Extremities exam: Positive for: normal capillary refill, pedal pulses present. Negative for: calf tenderness, pedal edema Additional comments: (+) left lower extremity CABG harvest site is slightly swollen along the suture line; no erythema, no bleeding, no tenderness - Back Exam Back exam: NORMAL INSPECTION - Neurological Exam Neurological exam: Alert, Oriented x3 - Psychiatric Exam Psychiatric exam: Normal Affect, Normal Mood - Skin Skin Exam: Dry, Normal Color, Warm Results - Vital Signs Recent Vital Signs: Last Vital Signs Temp 97.8 F 01/07/18 02:50 Pulse 96 H 01/07/18 02:50 Resp 20 01/07/18 02:50 BP 167/87 H 01/07/18 03:18 Pulse Ox 100 01/07/18 02:50 - Labs Result Diagrams: 01/07/18 00:40 01/07/18 02:15 Labs: Laboratory Results - last 24 hr 01/07/18 01/07/18 01/07/18 00:31 00:40 00:40 WBC 7.4 RBC 4.45 Hgb 12.6 Hct 37.3 MCV 83.9 MCH 28.3 MCHC 33.7 RDW 14.2 Plt Count 256 MPV 8.5 Neut % (Auto) 54.8 Lymph % (Auto) 35.0 [place] % (Auto) 7.9 Eos % (Auto) 2.2 Baso % (Auto) 0.1 Neut # (Auto) 4.1 Lymph # (Auto) 2.6 [place] # (Auto) 0.6 Eos # (Auto) 0.2 Baso # (Auto) 0.0 Sodium 142 Potassium 5.6 H Chloride 103 Carbon Dioxide 25 Anion Gap 20 BUN 18 H Creatinine 1.1 Est GFR ( Amer) 60 Est GFR (Non-Af Amer) 49 POC Glucose (mg/dL) 148 H Random Glucose 161 H Calcium 9.8 Total Bilirubin 0.4 AST 24 ALT 26 Alkaline Phosphatase 97 Total Creatine Kinase 92 CK-MB (Mass) 1.45 Troponin I 0.1410 H* Total Protein 7.9 Albumin 4.8 Globulin 3.1 Albumin/Globulin Ratio 1.5 01/07/18 02:15 WBC RBC Hgb Hct MCV MCH MCHC RDW Plt Count MPV Neut % (Auto) Lymph % (Auto) [place] % (Auto) Eos % (Auto) Baso % (Auto) Neut # (Auto) Lymph # (Auto) [place] # (Auto) Eos # (Auto) Baso # (Auto) Sodium Potassium 4.9 Chloride Carbon Dioxide Anion Gap BUN Creatinine Est GFR ( Amer) Est GFR (Non-Af Amer) POC Glucose (mg/dL) Random Glucose Calcium Total Bilirubin AST ALT Alkaline Phosphatase Total Creatine Kinase CK-MB (Mass) Troponin I Total Protein Albumin Globulin Albumin/Globulin Ratio Assessment & Plan - Assessment and Plan (Free Text) Assessment: This is a 67 year old female with PMH of CAD involving LAD with CABG in september 2017, 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 Plan: Tachycardia, likely secondary to pacemaker malfunction EKG shows ventricular pacing at 131 bpm, left axis deviation, no acute ST changes; as per ER attending. Repeat EKG - NSR 95 bpm, left axis deviation, RBBB, Q waves III, aVF, no acute ST changes; as per ED attending. ER contacted [facility] rep Tonny Brown, who suggested placing magnet over pacemaker to break tachycardia; pt has been NSR since (in 80s) [facility] will see the patient in am EP cardio, Dr. Storm, consulted Positive troponin; likely due to demand ischemic secondary to prolonged tachycardia troponin positive at 0.1410 will trend q6h x 2 Continue home ASA 81 mg daily Cardiology, Dr. Vanegas, consulted f/u Mg and Phos Hx of CAD with recent CABG Continue betablocker, ACEi, statin, ASA Left lower extremity swelling and tenderness along CABG harvesting site Venous doppler ordered HTN Restart home meds IDDM2 Continue home Novolin 12 units SC QHS ISS low Accucheck ACHS Continue home glipizide Hold metformin Hyperkalemia 5.6 noted in ER; untreated, repeat was 4.9 in ER. Likely due to hemolyzed specimen Continue to monitor PPX/diet Heparin 5000 units SC q8h for VTE ppz Pepcid 20 mg PO daily for GI ppx CCD/HHD Case was discussed with attending physician, Dr. Alexandr Garvey PGY-1
[2018-01-07] MEDS ORDERED: Dextrose 50% SYRINGE Inj (50 ml) IV PRN (05:13)
[2018-01-07] MEDS ORDERED: Glucagon Recombinant 1 mg Inj IM PRN (05:13)
--- NOTE | 2018-01-07 08:04 | CP.PCM.PN ---
Subjective - Date & Time of Evaluation Date of Evaluation: 01/07/18 Time of Evaluation: 08:03 - Subjective Subjective: PGY-2 Progress Note Patient seen and examined at bedside. Per nursing no acute events occurred overnight .Patient denies any chest pain, shortness of breath, fevers, chills, nausea, vomiting, or any other complaints. Objective - Vital Signs/Intake and Output Vital Signs (last 24 hours): Temp Pulse Resp BP Pulse Ox 97.8 F 96 H 20 167/87 H 100 01/07/18 02:50 01/07/18 02:50 01/07/18 02:50 01/07/18 03:18 01/07/18 02:50 - Medications Medications: Current Medications Aspirin (Ecotrin) 81 mg PO DAILY [facility] Dextrose (Dextrose 50% Inj) 0 ml IV STAT PRN; Protocol PRN Reason: Hypoglycemia Protocol Dextrose (Glutose 15) 0 gm PO ONCE PRN; Protocol PRN Reason: Hypoglycemia Protocol Enalapril Maleate (Vasotec) 5 mg PO DAILY [facility] Famotidine (Pepcid) 20 mg PO DAILY [facility] Glipizide (Glucotrol Xl) 5 mg PO DAILY [facility] Glipizide (Glucotrol Xl) 15 mg PO HS [facility] Glucagon (Glucagen Diagnostic Kit) 0 mg IM STAT PRN; Protocol PRN Reason: Hypoglycemia Protocol Heparin Sodium (Porcine) (Heparin) 5,000 units SC Q8 DANIEL Last Admin: 01/07/18 07:02 Dose: 5,000 units Dextrose (Dextrose 5% In Water 1000 Ml) 1,000 mls @ 0 mls/hr IV .Q0M PRN; Protocol PRN Reason: Hypoglycemia Protocol Insulin Human NPH (Novolin N) 12 unit SC HS [facility] Insulin Human Regular (Novolin R) 0 unit SC ACHS [facility]; Protocol Metoprolol Succinate (Toprol Xl) 25 mg PO DAILY [facility] Rosuvastatin Calcium (Crestor) 20 mg PO HS [facility] - Labs Labs: 01/07/18 00:40 01/07/18 02:15 - Head Exam Head Exam: ATRAUMATIC, NORMAL INSPECTION - Eye Exam Eye Exam: EOMI, Normal appearance, PERRL Pupil Exam: NORMAL ACCOMODATION, PERRL. absent: Irregular, Unequal - ENT Exam ENT Exam: Mucous Membranes Moist, Normal Oropharynx - Neck Exam Neck Exam: absent: Lymphadenopathy, Thyromegaly - Respiratory Exam Respiratory Exam: Clear to Ausculation Bilateral, NORMAL BREATHING PATTERN. absent: Prolonged Expiratory Phase, Respiratory Distress - Cardiovascular Exam Cardiovascular Exam: REGULAR RHYTHM, RRR, +S1, +S2 - GI/Abdominal Exam GI & Abdominal Exam: Soft, Normal Bowel Sounds. absent: Hyperactive Bowel Sounds - Extremities Exam Extremities Exam: Full ROM, Normal Inspection. absent: Pedal Edema - Back Exam Back Exam: NORMAL INSPECTION. 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 Plan: Tachycardia, likely secondary to pacemaker malfunction EKG shows ventricular pacing at 131 bpm, left axis deviation, no acute ST ch anges; as per ER attending. Repeat EKG - NSR 95 bpm, left axis deviation, RBBB, Q waves III, aVF, no acute ST changes; as per ED attending. ER contacted [facility] rep Tonny Brown, who suggested placing magnet over pacemaker to break tachycardia; pt has been NSR since (in 80s) [facility] rep will see the patient in am EP cardio, Dr. Storm, consulted: :Per nursing, pacemaker was recalibrated today. Will f/u with further recc's. Positive troponin; likely due to demand ischemic secondary to prolonged tachycardia troponin positive at 0.1410 will trend q6h x 2 Continue home ASA 81 mg daily Cardiology, Dr. Vanegas, consulted Hx of CAD with recent CABG Continue betablocker, ACEi, statin, ASA Left lower extremity swelling and tenderness along CABG harvesting site Venous doppler ordered HTN Restart home meds IDDM2 Continue home Novolin 12 units SC QHS ISS low Accucheck ACHS Continue home glipizide Hold metformin Hyperkalemia 5.6 noted in ER; untreated, repeat was 4.9 in ER. Likely due to hemolyzed specimen Continue to monitor PPX/diet Heparin 5000 units SC q8h for VTE ppz Pepcid 20 mg PO daily for GI ppx CCD/HHD Case was discussed with attending physician, Dr. Alexandr Parnell, PGY-2
[2018-01-07 08:19] LABS: BASO # 0.1 K/uL (0.0-0.2); BASO % 1.2 % (0.0-2.0); EOS # 0.2 K/uL (0.0-0.7); EOS % 2.7 % (0.0-4.0); HEMOGLOBIN 11.5 g/dL (11.0-16.0); LYMPH # 2.2 K/uL (1.0-4.3); LYMPH % 34.8 % (20.0-40.0); MEAN CELL VOLUME 84.4 fL (81.0-99.0); MEAN CORPUSCULAR HEMOGLOBIN 28.1 pg (27.0-31.0); MEAN CORPUSCULAR HGB CONC 33.3 g/dL (33.0-37.0); MEAN PLATELET VOLUME 8.7 fL (7.2-11.7); MONO # 0.5 K/uL (0.0-0.8); MONO % 8.5 % (0.0-10.0); NEUT # 3.3 K/uL (1.8-7.0); NEUT % 52.8 % (50.0-75.0); RBC 4.08 Mil/uL (3.80-5.20); WHITE BLOOD COUNT 6.2 K/uL (4.8-10.8)
[2018-01-07 08:39] LABS: ALB/GLOB RATIO 1.2 (1.0-2.1); ALT/SGPT 24 U/L (9-52); AST/SGOT 22 U/L (14-36); BLOOD UREA NITROGEN 16 mg/dL (7-17); GFR NON-AFRICAN AMERICAN > 60
--- NOTE | 2018-01-07 08:41 | RAD ---
HISTORY: palpitations COMPARISON: Chest x-ray performed 10/02/17 TECHNIQUE: Chest, one view. FINDINGS: LUNGS: No focal consolidation. Please note that chest x-ray has limited sensitivity for the detection of pulmonary masses. PLEURA: No significant pleural effusion identified. No definite pneumothorax. CARDIOVASCULAR: Median sternotomy wires with evidence of CABG. Heart size appears within normal limits. OSSEOUS STRUCTURES: Degenerative changes. VISUALIZED UPPER ABDOMEN: Right upper quadrant surgical clips. OTHER FINDINGS: None. IMPRESSION: No focal consolidation, significant pleural effusion, or definite pneumothorax identified.
[2018-01-07 08:50] LABS: CK-MB 2.51 ng/mL (0.0-3.38)
[2018-01-07] MEDS: (Novolin R) Insulin Human Regular 100 units/ml vial SC SCH ×4 (08:56→22:34)
[2018-01-07] MEDS: GlipiZIDE 5 mg SR Tab PO SCH ×2 (10:09→21:43)
[2018-01-07] MEDS: Metoprolol Succinate 25 mg XL Tab PO SCH (10:09)
[2018-01-07] MEDS ORDERED: Nitroglycerin 2% Ointment Foilpak UD TOP ONE (12:12)
[2018-01-07 12:45] LABS: CK-MB 2.47 ng/mL (0.0-3.38); TROPONIN I 0.378 ng/mL (0.00-0.120)
[2018-01-07] MEDS ORDERED: Nitroglycerin 50mg in D5W 50 MG/250 ML BOTTLE IV ONE (12:52)
[2018-01-07] MEDS: Nitroglycerin 50mg in D5W 50 MG/250 ML BOTTLE IV SCH (13:00)
--- NOTE | 2018-01-07 13:07 | CT ---
Date of service: CT chest without IV contrast Indication: Technique: Contiguous axial images were obtained through the chest without intravenous contrast enhancement. Sagittal and coronal reconstructions were generated and reviewed. This CT exam was performed using 1 or more of the following dose reduction techniques: Automated exposure control, adjustment of the MAA and/or kV according to patient size, and/or use of iterative reconstruction technique. Radiation dose (DLP): 420.69 MGy-cm. Comparison: Chest x-ray performed 01/07/18, CT angio chest performed 10/02/17 Findings: Visualized portions of the inferior thyroid gland appear unremarkable. The unenhanced mediastinal and hilar vascular structures appear grossly unremarkable. Heart size appears within normal limits. Mild scattered atherosclerotic calcifications of the aorta. No aneurysmal dilatation of the aorta appreciated. Dense coronary artery calcifications. Median sternotomy wires. Minimal left basilar atelectasis. No focal consolidation. No pleural effusion. No pneumothorax. Limited visualization of the noncontrast upper abdomen: Cholecystectomy. Degenerative changes of the spine. Impression: Left-sided pacemaker. Median sternotomy wires. Evidence of CABG. Cholecystectomy clips. Mild scattered atherosclerotic calcifications of the aorta. No evidence of aneurysmal dilatation of the aorta. Dense coronary artery calcifications.
--- NOTE | 2018-01-07 13:11 | PCM.RRT ---
<SoheilaBilln - Last Filed: 01/07/18 18:21> WRAPPER STRIPPER Nurses Assessment - Situation Date: 01/07/18 Time WRAPPER STRIPPER was called: 12:05 - Head Head Exam: ATRAUMATIC, NORMAL INSPECTION - Eyes Eye Exam: EOMI, Normal appearance, PERRL - Respiratory Exam Respiratory Exam: Clear to Ausculation Bilateral, NORMAL BREATHING PATTERN. absent: Prolonged Expiratory Phase, Respiratory Distress - Cardiovascular Exam Cardiovascular Exam: REGULAR RHYTHM, +S1, +S2 - GI/Abdominal Exam GI & Abdominal Exam: Soft, Normal Bowel Sounds. 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 WRAPPER STRIPPER was called when patient acutely reported severe chest pain radiating to the back. Plan: IV Morphine STAT EKG STAT Troponin STAT ABG (shock panel) 02 Nitroglycerin SL STAT ICU Consult STAT Chest CTA :Contrast dye allergy prevented imaging. Instead received Chest CT without contrast. Dr. Lopes, the Gang Supervisor was consulted who accepted the patient. Patient was transferred to ICU for further monitoring. PMD Dr. Strange was alerted of change in clinical disposition. <Merna Reeves - Last Filed: 01/12/18 09:12> WRAPPER STRIPPER Nurses Assessment - Vital Signs Vital Signs: Rapid Response Vital Sign Pulse Rate 83 Temperature 98.3 F Oxygen Saturation 100 - Vital Signs at end of WRAPPER STRIPPER Vital Signs at end of WRAPPER STRIPPER: Rapid Response End Vital Sign Blood Pressure 197/103 Pulse Rate 82 Respiratory Rate 20 O2 Sat by Pulse Oximetry 100 Attending/Attestation - Attestation I have personally seen and examined this patient.: Yes I have fully participated in the care of the patient.: Yes I have reviewed all pertinent clinical information, including history, physical exam and plan: Yes
[2018-01-07 15:38] LABS: INR 1.1; PROTHROMBIN TIME 12.4 SECONDS (9.7-12.2)
--- NOTE | 2018-01-07 17:44 | CP.PCM.CON ---
History of Present Illness - History of Present Illness History of Present Illness: Patient transferred from telemetry to the intensive care unit today. Patient is a 67-year-old female with a history of coronary artery disease him a cardiac bypass grafting, pacemaker placement recently diabetes, hypertension admitted to the hospital recently with palpitation, and the chest tightness. Initial admission noted to have tachycardia secondary to pacemaker unclear source. But the heart rate was controlled after the magnetic. Today TAXONOMIST was called because of the sudden onset of chest pain radiating to the back. Immediately patient underwent CT scan of the chest, without contrast because of the high risk of chest tightness secondary to contrast-induced allergy. But there was no evidence of any aneurysm noted. Patient was admitted to the intensive care unit. Started on nitroglycerin. The pain got better I also spoke to the ammonium hydroxide operator and the PMD. Past mental history: CAD, hypertension, hypercholesteremia, pacemaker placement, CABG Surgical history is notable including cholecystectomy, abdominal hysterectomy Family history of heart disease. Medications reviewed On examination: Currently patient is on nitroglycerin drip. Chest good air entry regular heart sound nontender abdomen no pedal edema EKG reviewed nonspecific. Pacemaker rhythm noted. Cardiac enzymes mildly positive CAT scan of the chest negative. Recently patient had a CAT scan of the chest 3 months ago with the contrast no evidence of aneurysm noted Assessment: 67-year-old female admitted with acute chest pain to the intensive care unit, unstable angina. Nitroglycerin drip. Cardiology evaluation and follow-up. Patient may need angiogram again. Uncontrolled hypertension. Currently stable with a nitroglycerin drip. Will continue the IV hydration and will follow the patient Past Patient History - Infectious Disease Hx of Infectious Diseases: None - Past Medical History & Family History Past Medical History?: Yes - Past Social History Smoking Status: Former Smoker - CARDIAC Hx Hypercholesterolemia: Yes Hx Hypertension: Yes Hx Pacemaker: Yes - PULMONARY Hx Asthma: Yes - ENDOCRINE/METABOLIC Hx Diabetes Mellitus Type 2: Yes - HEMATOLOGICAL/ONCOLOGICAL Hx Blood Disorders: No - INTEGUMENTARY Hx Dermatological Problems: No - MUSCULOSKELETAL/RHEUMATOLOGICAL Hx Falls: No - GASTROINTESTINAL Hx Gastrointestinal Disorders: No Hx Colostomy: Yes (x1 year w/ reversal) - GENITOURINARY/GYNECOLOGICAL Hx Genitourinary Disorders: No - PSYCHIATRIC Hx Substance Use: No - SURGICAL HISTORY Hx Cholecystectomy: Yes Hx Coronary Artery Bypass Graft: Yes - ANESTHESIA Hx Anesthesia: Yes Hx Anesthesia Reactions: No Hx Malignant Hyperthermia: No Meds Allergies/Adverse Reactions: Allergies Allergy/AdvReac Type Severity Reaction Status Date / Time metronidazole [From Flagyl] Allergy Verified 01/07/18 00:12 contrast dye Allergy Uncoded 01/07/18 00:12 - Medications Medications: Current Medications Aspirin (Ecotrin) 81 mg PO DAILY [facility] Last Admin: 01/07/18 10:14 Dose: 81 mg Dextrose (Dextrose 50% Inj) 0 ml IV STAT PRN; Protocol PRN Reason: Hypoglycemia Protocol Dextrose (Glutose 15) 0 gm PO ONCE PRN; Protocol PRN Reason: Hypoglycemia Protocol Enalapril Maleate (Vasotec) 5 mg PO DAILY [facility] Last Admin: 01/07/18 10:07 Dose: 5 mg Famotidine (Pepcid) 20 mg PO DAILY [facility] Last Admin: 01/07/18 10:09 Dose: 20 mg Glipizide (Glucotrol Xl) 5 mg PO DAILY [facility] Last Admin: 01/07/18 10:09 Dose: 5 mg Glipizide (Glucotrol Xl) 15 mg PO HS [facility] Glucagon (Glucagen Diagnostic Kit) 0 mg IM STAT PRN; Protocol PRN Reason: Hypoglycemia Protocol Heparin Sodium (Porcine) (Heparin) 5,000 units SC Q8 [facility] Last Admin: 01/07/18 16:25 Dose: 5,000 units Dextrose (Dextrose 5% In Water 1000 Ml) 1,000 mls @ 0 mls/hr IV .Q0M PRN; Pr otocol PRN Reason: Hypoglycemia Protocol Nitroglycerin/Dextrose (Nitroglycerin 50 Mg/250 Ml D5w) 50 mg in 250 mls @ 1.5 mls/hr IV .Q24H [facility]; Protocol Last Titration: 01/07/18 13:10 Dose: 20 mcg/min, 6 mls/hr Insulin Human NPH (Novolin N) 12 unit SC HS [facility] Insulin Human Regular (Novolin R) 0 unit SC ACHS [facility]; Protocol Last Admin: 01/07/18 16:26 Dose: 4 u Metoprolol Succinate (Toprol Xl) 25 mg PO DAILY [facility] Last Admin: 01/07/18 10:09 Dose: 25 mg Nitroglycerin (Nitrostat Sl Tab) 0.4 mg SL Q5M PRN PRN Reason: Pain, moderate (4-7) Rosuvastatin Calcium (Crestor) 20 mg PO HS [facility] Results - Vital Signs Recent Vital Signs: Last Vital Signs Temp 97.2 F L 01/07/18 08:00 Pulse 78 01/07/18 17:11 Resp 18 01/07/18 17:11 BP 115/66 01/07/18 17:11 Pulse Ox 99 01/07/18 17:11 - Labs Result Diagrams: 01/07/18 08:12 01/07/18 08:12 Labs: Laboratory Results - last 24 hr 01/07/18 01/07/18 01/07/18 00:31 00:40 00:40 WBC 7.4 RBC 4.45 Hgb 12.6 Hct 37.3 MCV 83.9 MCH 28.3 MCHC 33.7 RDW 14.2 Plt Count 256 MPV 8.5 Neut % (Auto) 54.8 Lymph % (Auto) 35.0 Mclennan % (Auto) 7.9 Eos % (Auto) 2.2 Baso % (Auto) 0.1 Neut # (Auto) 4.1 Lymph # (Auto) 2.6 Mclennan # (Auto) 0.6 Eos # (Auto) 0.2 Baso # (Auto) 0.0 PT INR APTT D-Dimer, Quantitative Sodium 142 Potassium 5.6 H Chloride 103 Carbon Dioxide 25 Anion Gap 20 BUN 18 H Creatinine 1.1 Est GFR ( Amer) 60 Est GFR (Non-Af Amer) 49 POC Glucose (mg/dL) 148 H Random Glucose 161 H Calcium 9.8 Phosphorus Magnesium Total Bilirubin 0.4 AST 24 ALT 26 Alkaline Phosphatase 97 Total Creatine Kinase 92 CK-MB (Mass) 1.45 Troponin I 0.1410 H* Total Protein 7.9 Albumin 4.8 Globulin 3.1 Albumin/Globulin Ratio 1.5 01/07/18 01/07/18 01/07/18 02:15 06:18 08:12 WBC RBC Hgb Hct MCV MCH MCHC RDW Plt Count MPV Neut % (Auto) Lymph % (Auto) Mclennan % (Auto) Eos % (Auto) Baso % (Auto) Neut # (Auto) Lymph # (Auto) Mclennan # (Auto) Eos # (Auto) Baso # (Auto) PT INR APTT D-Dimer, Quantitative Sodium 143 Potassium 4.9 4.5 Chloride 105 Carbon Dioxide 26 Anion Gap 16 BUN 16 Creatinine 0.9 Est GFR ( Amer) > 60 Est GFR (Non-Af Amer) > 60 POC Glucose (mg/dL) 92 Random Glucose 99 Calcium 9.0 Phosphorus 3.5 Magnesium 1.6 Total Bilirubin 0.4 AST 22 ALT 24 Alkaline Phosphatase 87 Total Creatine Kinase 75 CK-MB (Mass) 2.51 Troponin I 0.4310 H* Total Protein 7.2 Albumin 4.0 Globulin 3.2 Albumin/Globulin Ratio 1.2 01/07/18 01/07/18 01/07/18 08:12 11:44 12:02 WBC 6.2 RBC 4.08 Hgb 11.5 Hct 34.4 MCV 84.4 MCH 28.1 MCHC 33.3 RDW 14.0 Plt Count 221 MPV 8.7 Neut % (Auto) 52.8 Lymph % (Auto) 34.8 Mclennan % (Auto) 8.5 Eos % (Auto) 2.7 Baso % (Auto) 1.2 Neut # (Auto) 3.3 Lymph # (Auto) 2.2 Mclennan # (Auto) 0.5 Eos # (Auto) 0.2 Baso # (Auto) 0.1 PT INR APTT D-Dimer, Quantitative Sodium Potassium Chloride Carbon Dioxide Anion Gap BUN Creatinine Est GFR ( Amer) Est GFR (Non-Af Amer) POC Glucose (mg/dL) 252 H Random Glucose Calcium Phosphorus Magnesium Total Bilirubin AST ALT Alkaline Phosphatase Total Creatine Kinase 84 CK-MB (Mass) 2.47 Troponin I 0.3780 H* Total Protein Albumin Globulin Albumin/Globulin Ratio 01/07/18 01/07/18 01/07/18 15:05 15:05 16:10 WBC RBC Hgb Hct MCV MCH MCHC RDW Plt Count MPV Neut % (Auto) Lymph % (Auto) Mclennan % (Auto) Eos % (Auto) Baso % (Auto) Neut # (Auto) Lymph # (Auto) Mclennan # (Auto) Eos # (Auto) Baso # (Auto) PT 12.4 H INR 1.1 APTT 36 H D-Dimer, Quantitative 4664 H Sodium Potassium Chloride Carbon Dioxide Anion Gap BUN Creatinine Est GFR ( Amer) Est GFR (Non-Af Amer) POC Glucose (mg/dL) 308 H Random Glucose Calcium Phosphorus Magnesium Total Bilirubin AST ALT Alkaline Phosphatase Total Creatine Kinase CK-MB (Mass) Troponin I Total Protein Albumin Globulin Albumin/Globulin Ratio
[2018-01-07] MEDS ORDERED: Heparin25000 units/250ml 1/2NS 25,000 UNITS/250 ML BAG IV PRN (19:06)
[2018-01-07] MEDS: (Novolin N) Insulin Human Isophane (NPH) 100 u/ml 10 ml vial SC SCH (21:42)
--- NOTE | 2018-01-08 00:21 | CP.PCM.CON ---
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 Pt states that she had a constant feeling of her heart racing since this morning (01/06). Pt states that earlier in the day she had an episode of dizziness while walking, which required her to stop. Pt did not fall, or pass out. She states the dizziness improved on its own and she continued about her day. Palpitations worsened this evening, when at 1030/11 pm she felt the plapitations in her neck (right greater than left), which prompted her to go to the ER. Pt denies fever, chills, headache, visual changes, chest pain, dyspnea, abdominal pain, n/v/d, change in medications, recent alcohol use, pleuritic cp, leg pain. Pt states that her left ankle has been slightly swollen since they removed her vein for CABG. Pt received ASA 325 mg PO in the ED. ER contacted [facility] rep Tonny Brown, who suggested placing magnet over pacemaker to break tachycardia; pt has been NSR since (in 80s). Review of Systems - Cardiovascular Cardiovascular: Palpitations - Respiratory Respiratory: Dyspnea - Gastrointestinal Gastrointestinal: absent: Abdominal Pain - Neurological Neurological: absent: As Per HPI, Abnormal Gait, Abnormal Hearing, Abnormal Movements, Abnormal Speech, Behavioral Changes, Burning Sensations, Confusion, Convulsions, Disequilibrium, Dizziness, Numbness, Focal Weakness, Frequent Falls, Headaches, Lack of Coordination, Loss of Vision, Memory Loss, P aresthesias, Radicular Pain, Restless Legs, Sensory Deficit, Syncope, Tingling, Tremor, Vertigo, Weakness, Other Visual Disturbances, Other - Psychiatric Psychiatric: absent: As Per HPI, Abnormal Sleep Pattern, Anhedonia, Anxiety, Auditory Hallucinations, Behavioral Changes, Change in Appetite, Change in Libido, Confusion, Depression, Difficulty Concentrating, Hallucinations, Homicidal Ideation, Hopelessness, Irritability, Memory Loss, Mood Swings, Panic Attacks, Paranoia, Suicidal Ideation, Visual Hallucinations, Tactile Hallucinations, Other Past Patient History - Infectious Disease Hx of Infectious Diseases: None - Past Medical History & Family History Past Medical History?: Yes - Past Social History Smoking Status: Former Smoker - CARDIAC Hx Hypercholesterolemia: Yes Hx Hypertension: Yes Hx Pacemaker: Yes - PULMONARY Hx Asthma: Yes - ENDOCRINE/METABOLIC Hx Diabetes Mellitus Type 2: Yes - HEMATOLOGICAL/ONCOLOGICAL Hx Blood Disorders: No - INTEGUMENTARY Hx Dermatological Problems: No - MUSCULOSKELETAL/RHEUMATOLOGICAL Hx Falls: No - GASTROINTESTINAL Hx Gastrointestinal Disorders: No Hx Colostomy: Yes (x1 year w/ reversal) - GENITOURINARY/GYNECOLOGICAL Hx Genitourinary Disorders: No - PSYCHIATRIC Hx Substance Use: No - SURGICAL HISTORY Hx Cholecystectomy: Yes Hx Coronary Artery Bypass Graft: Yes - ANESTHESIA Hx Anesthesia: Yes Hx Anesthesia Reactions: No Hx Malignant Hyperthermia: No Meds Allergies/Adverse Reactions: Allergies Allergy/AdvReac Type Severity Reaction Status Date / Time metronidazole [From Flagyl] Allergy Verified 01/07/18 00:12 contrast dye Allergy Uncoded 01/07/18 00:12 - Medications Medications: Current Medications Acetaminophen (Tylenol 325mg Tab) 650 mg PO Q6 PRN PRN Reason: Headache Last Admin: 01/07/18 21:40 Dose: 650 mg Aspirin (Ecotrin) 81 mg PO DAILY [facility] Last Admin: 01/07/18 10:14 Dose: 81 mg Dextrose (Dextrose 50% Inj) 0 ml IV STAT PRN; Protocol PRN Reason: Hypoglycemia Protocol Dextrose (Glutose 15) 0 gm PO ONCE PRN; Protocol PRN Reason: Hypoglycemia Protocol Enalapril Maleate (Vasotec) 5 mg PO DAILY [facility] Last Admin: 01/07/18 10:07 Dose: 5 mg Famotidine (Pepcid) 20 mg PO DAILY [facility] Last Admin: 01/07/18 10:09 Dose: 20 mg Glipizide (Glucotrol Xl) 5 mg PO DAILY [facility] Last Admin: 01/07/18 10:09 Dose: 5 mg Glipizide (Glucotrol Xl) 15 mg PO HS [facility] Last Admin: 01/07/18 21:43 Dose: 15 mg Glucagon (Glucagen Diagnostic Kit) 0 mg IM STAT PRN; Protocol PRN Reason: Hypoglycemia Protocol Dextrose (Dextrose 5% In Water 1000 Ml) 1,000 mls @ 0 mls/hr IV .Q0M PRN; P rotocol PRN Reason: Hypoglycemia Protocol Nitroglycerin/Dextrose (Nitroglycerin 50 Mg/250 Ml D5w) 50 mg in 250 mls @ 1.5 mls/hr IV .Q24H [facility]; Protocol Last Titration: 01/07/18 15:00 Dose: 10 mcg/min, 3 mls/hr Heparin Sodium/Sodium Chloride (Heparin 30459 Units/250ml 1/2 Normal Saline) 25,000 units in 250 mls @ 6.305 mls/hr IV .Q24H PRN; Protocol PRN Reason: PROTOCOL Last Admin: 01/07/18 19:41 Dose: 10 units/kg/hr, 6.305 mls/hr Insulin Human NPH (Novolin N) 12 unit SC HS [facility] Last Admin: 01/07/18 21:42 Dose: 12 u Insulin Human Regular (Novolin R) 0 unit SC ACHS [facility]; Protocol Last Admin: 01/07/18 22:34 Dose: Not Given Metoprolol Succinate (Toprol Xl) 25 mg PO DAILY [facility] Last Admin: 01/07/18 10:09 Dose: 25 mg Nitroglycerin (Nitrostat Sl Tab) 0.4 mg SL Q5M PRN PRN Reason: Pain, moderate (4-7) Rosuvastatin Calcium (Crestor) 20 mg PO [facility] Last Admin: 01/07/18 21:40 Dose: 20 mg Physical Exam - Constitutional Appears: Non-toxic - Head Exam Head Exam: NORMAL INSPECTION - Eye Exam Eye Exam: absent: Scleral icterus - ENT Exam ENT Exam: Mucous Membranes Moist - Neck Exam Neck exam: Positive for: Full Rom - Respiratory Exam Respiratory Exam: NORMAL BREATHING PATTERN - Cardiovascular Exam Cardiovascular Exam: REGULAR RHYTHM - GI/Abdominal Exam GI & Abdominal Exam: Soft - Extremities Exam Extremities exam: Negative for: pedal edema Results - Vital Signs Recent Vital Signs: Last Vital Signs Temp 97.2 F L 01/07/18 08:00 Pulse 74 01/07/18 23:01 Resp 15 01/07/18 23:01 BP 110/70 01/07/18 23:01 Pulse Ox 99 01/07/18 23:00 - Labs Result Diagrams: 01/07/18 08:12 01/07/18 08:12 Labs: Laboratory Results - last 24 hr 01/07/18 01/07/18 01/07/18 00:31 00:40 00:40 WBC 7.4 RBC 4.45 Hgb 12.6 Hct 37.3 MCV 83.9 MCH 28.3 MCHC 33.7 RDW 14.2 Plt Count 256 MPV 8.5 Neut % (Auto) 54.8 Lymph % (Auto) 35.0 Cedar % (Auto) 7.9 Eos % (Auto) 2.2 Baso % (Auto) 0.1 Neut # (Auto) 4.1 Lymph # (Auto) 2.6 [place]edar # (Auto) 0.6 Eos # (Auto) 0.2 Baso # (Auto) 0.0 PT INR APTT D-Dimer, Quantitative Sodium 142 Potassium 5.6 H Chloride 103 Carbon Dioxide 25 Anion Gap 20 BUN 18 H Creatinine 1.1 Est GFR ( Amer) 60 Est GFR (Non-Af Amer) 49 POC Glucose (mg/dL) 148 H Random Glucose 161 H Calcium 9.8 Phosphorus Magnesium Total Bilirubin 0.4 AST 24 ALT 26 Alkaline Phosphatase 97 Total Creatine Kinase 92 CK-MB (Mass) 1.45 Troponin I 0.1410 H* Total Protein 7.9 Albumin 4.8 Globulin 3.1 Albumin/Globulin Ratio 1.5 01/07/18 01/07/18 01/07/18 02:15 06:18 08:12 WBC RBC Hgb Hct MCV MCH MCHC RDW Plt Count MPV Neut % (Auto) Lymph % (Auto) Cedar % (Auto) Eos % (Auto) Baso % (Auto) Neut # (Auto) Lymph # (Auto) [place]edar # (Auto) Eos # (Auto) Baso # (Auto) PT INR APTT D-Dimer, Quantitative Sodium 143 Potassium 4.9 4.5 Chloride 105 Carbon Dioxide 26 Anion Gap 16 BUN 16 Creatinine 0.9 Est GFR ( Amer) > 60 Est GFR (Non-Af Amer) > 60 POC Glucose (mg/dL) 92 Random Glucose 99 Calcium 9.0 Phosphorus 3.5 Magnesium 1.6 Total Bilirubin 0.4 AST 22 ALT 24 Alkaline Phosphatase 87 Total Creatine Kinase 75 CK-MB (Mass) 2.51 Troponin I 0.4310 H* Total Protein 7.2 Albumin 4.0 Globulin 3.2 Albumin/Globulin Ratio 1.2 01/07/18 01/07/18 01/07/18 08:12 11:44 12:02 WBC 6.2 RBC 4.08 Hgb 11.5 Hct 34.4 MCV 84.4 MCH 28.1 MCHC 33.3 RDW 14.0 Plt Count 221 MPV 8.7 Neut % (Auto) 52.8 Lymph % (Auto) 34.8 [place]edar % (Auto) 8.5 Eos % (Auto) 2.7 Baso % (Auto) 1.2 Neut # (Auto) 3.3 Lymph # (Auto) 2.2 [place]edar # (Auto) 0.5 Eos # (Auto) 0.2 Baso # (Auto) 0.1 PT INR APTT D-Dimer, Quantitative Sodium Potassium Chloride Carbon Dioxide Anion Gap BUN Creatinine Est GFR ( Amer) Est GFR (Non-Af Amer) POC Glucose (mg/dL) 252 H Random Glucose Calcium Phosphorus Magnesium Total Bilirubin AST ALT Alkaline Phosphatase Total Creatine Kinase 84 CK-MB (Mass) 2.47 Troponin I 0.3780 H* Total Protein Albumin Globulin Albumin/Globulin Ratio 01/07/18 01/07/18 01/07/18 15:05 15:05 16:10 WBC RBC Hgb Hct MCV MCH MCHC RDW Plt Count MPV Neut % (Auto) Lymph % (Auto) Cedar % (Auto) Eos % (Auto) Baso % (Auto) Neut # (Auto) Lymph # (Auto) [place]edar # (Auto) Eos # (Auto) Baso # (Auto) PT 12.4 H INR 1.1 APTT 36 H D-Dimer, Quantitative 4664 H Sodium Potassium Chloride Carbon Dioxide Anion Gap BUN Creatinine Est GFR ( Amer) Est GFR (Non-Af Amer) POC Glucose (mg/dL) 308 H Random Glucose Calcium Phosphorus Magnesium Total Bilirubin AST ALT Alkaline Phosphatase Total Creatine Kinase CK-MB (Mass) Troponin I Total Protein Albumin Globulin Albumin/Globulin Ratio 01/07/18 21:07 WBC RBC Hgb Hct MCV MCH MCHC RDW Plt Count MPV Neut % (Auto) Lymph % (Auto) Cedar % (Auto) Eos % (Auto) Baso % (Auto) Neut # (Auto) Lymph # (Auto) Cedar # (Auto) Eos # (Auto) Baso # (Auto) PT INR APTT D-Dimer, Quantitative Sodium Potassium Chloride Carbon Dioxide Anion Gap BUN Creatinine Est GFR ( Amer) Est GFR (Non-Af Amer) POC Glucose (mg/dL) 246 H Random Glucose Calcium Phosphorus Magnesium Total Bilirubin AST ALT Alkaline Phosphatase Total Creatine Kinase CK-MB (Mass) Troponin I Total Protein Albumin Globulin Albumin/Globulin Ratio Assessment & Plan - Assessment and Plan (Free Text) Assessment: ACS Pacemaker-mediated palpitations CAD Plan: Consider cardiac cath to re-assess patency of grafts Cont heparin, beta-marquita, ASA Discussed pt's condition with family bedside - Date & Time Date: 01/07/18 Time: 08:30
[2018-01-08 04:25] LABS: BASO # 0.1 K/uL (0.0-0.2); BASO % 1.2 % (0.0-2.0); EOS # 0.1 K/uL (0.0-0.7); HEMOGLOBIN 11.9 g/dL (11.0-16.0); LYMPH # 2.6 K/uL (1.0-4.3); LYMPH % 35.3 % (20.0-40.0); MEAN CELL VOLUME 83.2 fL (81.0-99.0); MEAN CORPUSCULAR HEMOGLOBIN 27.3 pg (27.0-31.0); MEAN CORPUSCULAR HGB CONC 32.8 g/dL (33.0-37.0); MEAN PLATELET VOLUME 9.3 fL (7.2-11.7); MONO # 0.5 K/uL (0.0-0.8); MONO % 6.7 % (0.0-10.0); NEUT % 54.8 % (50.0-75.0); RBC 4.36 Mil/uL (3.80-5.20); WHITE BLOOD COUNT 7.3 K/uL (4.8-10.8)
[2018-01-08 04:44] LABS: ALB/GLOB RATIO 1.3 (1.0-2.1); ALBUMIN 3.9 g/dL (3.5-5.0); CALCIUM 9.3 mg/dl (8.6-10.4)
[2018-01-08] MEDS: (Novolin R) Insulin Human Regular 100 units/ml vial SC SCH ×5 (08:10→21:24)
[2018-01-08] MEDS: GlipiZIDE 5 mg SR Tab PO SCH ×2 (09:56→22:20)
[2018-01-08] MEDS: Metoprolol Succinate 25 mg XL Tab PO SCH (09:57)
--- NOTE | 2018-01-08 15:25 | CP.CCUPN ---
CCU Subjective - Physician Review Subjective (Free Text): 01/08/18 15:21 Pt seen and examined at bedside.pt reports an episode of chest pain last night and again this morning. Pt has no complaints now winsce receiving morphine IVP. Pt is pending cardio recs for cath either today or tmrw. Pt denies CP SOB FC [facility] CCU Objective - Vital Signs / Intake & Output Vital Signs (Last 4 hours): Vital Signs Temp Pulse Resp BP Pulse Ox 01/08/18 15:00 85 22 100 01/08/18 14:45 82 15 97 01/08/18 14:30 85 14 98 01/08/18 14:15 86 13 98 01/08/18 14:01 116/73 01/08/18 14:00 85 13 99 01/08/18 13:30 78 21 97 01/08/18 13:15 87 12 96 01/08/18 13:01 87 16 116/72 98 01/08/18 13:00 85 16 99 01/08/18 12:45 79 16 01/08/18 12:43 119/70 01/08/18 12:30 78 11 L 01/08/18 12:15 82 13 01/08/18 12:01 115/75 01/08/18 12:00 98.3 F 80 12 01/08/18 11:30 87 17 100 Intake and Output (Last 8hrs): Intake & Output 01/08/18 01/08/18 01/08/18 06:59 14:59 22:59 Intake Total 215.9 352.6 8 Output Total 400 Balance -184.1 352.6 8 Weight 141 lb 7 oz Intake: IV 43 40 Intake, IV Amount 72.9 72.6 8 Right Antecubital 22.5 30 3 right AC Piggyback 50.4 42.6 5 Oral 100 240 Output: Urine 400 Urine, Voided 400 Other: # Voids Urine, Voided 1 # Bowel Movements 0 - Physical Exam Head: Positive for: Atraumatic, Normocephalic Pupils: Positive for: PERRL Extroacular Muscles: Positive for: EOMI Conjunctiva: Positive for: Normal Mouth: Positive for: Moist Mucous Membranes - Medications Active Medications: Active Medications Generic Name Dose Route Start Last Admin Trade Name Freq PRN Reason Stop Dose Admin Acetaminophen 650 mg 01/07/18 21:12 01/08/18 11:15 Tylenol 325mg Tab PO 650 mg Q6 PRN Administration Headache Aspirin 81 mg 01/07/18 10:00 01/08/18 09:56 Ecotrin PO 81 mg DAILY DANIEL Administration Dextrose 0 ml 01/07/18 05:13 Dextrose 50% Inj IV STAT PRN Hypoglycemia Protocol Protocol Dextrose 0 gm 01/07/18 05:13 Glutose 15 PO ONCE PRN Hypoglycemia Protocol Protocol Enalapril Maleate 5 mg 01/07/18 10:00 01/08/18 12:43 Vasotec PO 5 mg DAILY DANIEL Administration Famotidine 20 mg 01/07/18 10:00 01/08/18 09:57 Pepcid PO 20 mg DAILY DANIEL Administration Glipizide 5 mg 01/07/18 10:00 01/08/18 09:56 Glucotrol Xl PO 5 mg DAILY DANIEL Administration Glipizide 15 mg 01/07/18 22:00 01/07/18 21:43 Glucotrol Xl PO 15 mg HS DANIEL Administration Glucagon 0 mg 01/07/18 05:13 Glucagen Diagnostic Kit IM STAT PRN Hypoglycemia Protocol Protocol Dextrose 1,000 mls @ 0 mls/hr 01/07/18 05:13 Dextrose 5% In Water 1000 Ml IV .Q0M PRN Hypoglycemia Protocol Protocol Per Protocol Nitroglycerin/Dextrose 50 mg in 250 mls @ 1.5 mls/hr 01/07/18 13:30 01/08/18 08:45 Nitroglycerin 50 Mg/250 Ml D5w IV 10 mcg/min .Q24H DANIEL 3 mls/hr Titration Protocol 5 MCG/MIN Heparin Sodium/Sodium Chloride 25,000 units in 250 mls @ 6.305 mls/hr 01/07/18 19:06 01/07/18 19:41 Heparin 84026 Units/250ml 1/2 Normal Saline IV 10 units/kg/hr .Q24H PRN 6.305 mls/hr PROTOCOL Administration Protocol 10 UNITS/KG/HR Insulin Human NPH 12 unit 01/07/18 22:00 01/07/18 21:42 Novolin N SC 12 u HS DANIEL Administration Insulin Human Regular 0 unit 01/08/18 11:28 01/08/18 15:13 Novolin R SC Not Given ACHS DANIEL Protocol Metoprolol Succinate 25 mg 01/07/18 10:00 01/08/18 09:57 Toprol Xl PO 25 mg DAILY DANIEL Administration Nitroglycerin 0.4 mg 01/07/18 12:09 Nitrostat Sl Tab SL Q5M PRN Pain, moderate (4-7) Rosuvastatin Calcium 20 mg 01/07/18 22:00 01/07/18 21:40 Crestor PO 20 mg HS DANIEL Administration - Patient Studies Lab Studies: Microbiology Studies 01/07/18 13:50 MRSA Culture (Admit) - Final Nose MRSA NOT DETECTED Lab Studies 01/08/18 01/08/18 01/08/18 Range/Units 11:05 08:18 07:17 WBC (4.8-10.8) K/uL RBC (3.80-5.20) Mil/uL Hgb (11.0-16.0) g/dL Hct (34.0-47.0) % MCV (81.0-99.0) fL MCH (27.0-31.0) pg MCHC (33.0-37.0) g/dL RDW (11.5-14.5) % Plt Count (130-400) K/uL MPV (7.2-11.7) fL Neut % (Auto) (50.0-75.0) % Lymph % (Auto) (20.0-40.0) % Wirt % (Auto) (0.0-10.0) % Eos % (Auto) (0.0-4.0) % Baso % (Auto) (0.0-2.0) % Neut # (Auto) (1.8-7.0) K/uL Lymph # (Auto) (1.0-4.3) K/uL Wirt # (Auto) (0.0-0.8) K/uL Eos # (Auto) (0.0-0.7) K/uL Baso # (Auto) (0.0-0.2) K/uL PT (9.7-12.2) SECONDS INR APTT 99 H D (21-34) SECONDS D-Dimer, Quantitative (0-243) ng/mlDDU Sodium (132-148) mmol/L Potassium (3.6-5.2) mmol/L Chloride (98-107) mmol/L Carbon Dioxide (22-30) mmol/L Anion Gap (10-20) BUN (7-17) mg/dL Creatinine (0.7-1.2) mg/dL Est GFR ( Amer) Est GFR (Non-Af Amer) POC Glucose (mg/dL) 349 H 253 H (65-110) mg/dL Random Glucose (65-105) mg/dL Calcium (8.6-10.4) mg/dl Phosphorus (2.5-4.5) mg/dL Magnesium (1.6-2.3) mg/dL Total Bilirubin (0.2-1.3) mg/dL AST (14-36) U/L ALT (9-52) U/L Alkaline Phosphatase (38-126) U/L Troponin I (0.00-0.120) ng/mL Total Protein (6.3-8.3) g/dL Albumin (3.5-5.0) g/dL Globulin (2.2-3.9) gm/dL Albumin/Globulin Ratio (1.0-2.1) 01/08/18 01/08/18 01/08/18 Range/Units 06:20 04:21 04:21 WBC 7.3 (4.8-10.8) K/uL RBC 4.36 (3.80-5.20) Mil/uL Hgb 11.9 (11.0-16.0) g/dL Hct 36.3 (34.0-47.0) % MCV 83.2 (81.0-99.0) fL MCH 27.3 (27.0-31.0) pg MCHC 32.8 L (33.0-37.0) g/dL RDW 14.0 (11.5-14.5) % Plt Count 227 (130-400) K/uL MPV 9.3 (7.2-11.7) fL Neut % (Auto) 54.8 (50.0-75.0) % Lymph % (Auto) 35.3 (20.0-40.0) % Wirt % (Auto) 6.7 (0.0-10.0) % Eos % (Auto) 2.0 (0.0-4.0) % Baso % (Auto) 1.2 (0.0-2.0) % Neut # (Auto) 4.0 (1.8-7.0) K/uL Lymph # (Auto) 2.6 (1.0-4.3) K/uL Wirt # (Auto) 0.5 (0.0-0.8) K/uL Eos # (Auto) 0.1 (0.0-0.7) K/uL Baso # (Auto) 0.1 (0.0-0.2) K/uL PT (9.7-12.2) SECONDS INR APTT (21-34) SECONDS D-Dimer, Quantitative (0-243) ng/mlDDU Sodium 140 (132-148) mmol/L Potassium 4.2 (3.6-5.2) mmol/L Chloride 103 (98-107) mmol/L Carbon Dioxide 25 (22-30) mmol/L Anion Gap 17 (10-20) BUN 20 H (7-17) mg/dL Creatinine 1.1 (0.7-1.2) mg/dL Est GFR ( Amer) 60 Est GFR (Non-Af Amer) 49 POC Glucose (mg/dL) (65-110) mg/dL Random Glucose 146 H (65-105) mg/dL Calcium 9.3 (8.6-10.4) mg/dl Phosphorus 4.0 (2.5-4.5) mg/dL Magnesium 1.7 (1.6-2.3) mg/dL Total Bilirubin 0.5 (0.2-1.3) mg/dL AST 23 (14-36) U/L ALT 24 (9-52) U/L Alkaline Phosphatase 89 (38-126) U/L Troponin I 1.6400 H* (0.00-0.120) ng/mL Total Protein 7.0 (6.3-8.3) g/dL Albumin 3.9 (3.5-5.0) g/dL Globulin 3.1 (2.2-3.9) gm/dL Albumin/Globulin Ratio 1.3 (1.0-2.1) 01/08/18 01/07/18 01/07/18 Range/Units 02:04 21:07 16:10 WBC (4.8-10.8) K/uL RBC (3.80-5.20) Mil/uL Hgb (11.0-16.0) g/dL Hct (34.0-47.0) % MCV (81.0-99.0) fL MCH (27.0-31.0) pg MCHC (33.0-37.0) g/dL RDW (11.5-14.5) % Plt Count (130-400) K/uL MPV (7.2-11.7) fL Neut % (Auto) (50.0-75.0) % Lymph % (Auto) (20.0-40.0) % Wirt % (Auto) (0.0-10.0) % Eos % (Auto) (0.0-4.0) % Baso % (Auto) (0.0-2.0) % Neut # (Auto) (1.8-7.0) K/uL Lymph # (Auto) (1.0-4.3) K/uL Wirt # (Auto) (0.0-0.8) K/uL Eos # (Auto) (0.0-0.7) K/uL Baso # (Auto) (0.0-0.2) K/uL PT (9.7-12.2) SECONDS INR APTT 90 H D (21-34) SECONDS D-Dimer, Quantitative (0-243) ng/mlDDU Sodium (132-148) mmol/L Potassium (3.6-5.2) mmol/L Chloride (98-107) mmol/L Carbon Dioxide (22-30) mmol/L Anion Gap (10-20) BUN (7-17) mg/dL Creatinine (0.7-1.2) mg/dL Est GFR ( Amer) Est GFR (Non-Af Amer) POC Glucose (mg/dL) 246 H 308 H (65-110) mg/dL Random Glucose (65-105) mg/dL Calcium (8.6-10.4) mg/dl Phosphorus (2.5-4.5) mg/dL Magnesium (1.6-2.3) mg/dL Total Bilirubin (0.2-1.3) mg/dL AST (14-36) U/L ALT (9-52) U/L Alkaline Phosphatase (38-126) U/L Troponin I (0.00-0.120) ng/mL Total Protein (6.3-8.3) g/dL Albumin (3.5-5.0) g/dL Globulin (2.2-3.9) gm/dL Albumin/Globulin Ratio (1.0-2.1) 01/07/18 01/07/18 Range/Units 15:05 15:05 WBC (4.8-10.8) K/uL RBC (3.80-5.20) Mil/uL Hgb (11.0-16.0) g/dL Hct (34.0-47.0) % MCV (81.0-99.0) fL MCH (27.0-31.0) pg MCHC (33.0-37.0) g/dL RDW (11.5-14.5) % Plt Count (130-400) K/uL MPV (7.2-11.7) fL Neut % (Auto) (50.0-75.0) % Lymph % (Auto) (20.0-40.0) % Wirt % (Auto) (0.0-10.0) % Eos % (Auto) (0.0-4.0) % Baso % (Auto) (0.0-2.0) % Neut # (Auto) (1.8-7.0) K/uL Lymph # (Auto) (1.0-4.3) K/uL Wirt # (Auto) (0.0-0.8) K/uL Eos # (Auto) (0.0-0.7) K/uL Baso # (Auto) (0.0-0.2) K/uL PT 12.4 H (9.7-12.2) SECONDS INR 1.1 APTT 36 H (21-34) SECONDS D-Dimer, Quantitative 4664 H (0-243) ng/mlDDU Sodium (132-148) mmol/L Potassium (3.6-5.2) mmol/L Chloride (98-107) mmol/L Carbon Dioxide (22-30) mmol/L Anion Gap (10-20) BUN (7-17) mg/dL Creatinine (0.7-1.2) mg/dL Est GFR ( Amer) Est GFR (Non-Af Amer) POC Glucose (mg/dL) (65-110) mg/dL Random Glucose (65-105) mg/dL Calcium (8.6-10.4) mg/dl Phosphorus (2.5-4.5) mg/dL Magnesium (1.6-2.3) mg/dL Total Bilirubin (0.2-1.3) mg/dL AST (14-36) U/L ALT (9-52) U/L Alkaline Phosphatase (38-126) U/L Troponin I (0.00-0.120) ng/mL Total Protein (6.3-8.3) g/dL Albumin (3.5-5.0) g/dL Globulin (2.2-3.9) gm/dL Albumin/Globulin Ratio (1.0-2.1) Laboratory Results - last 24 hr 01/07/18 01/07/18 01/07/18 15:05 15:05 16:10 WBC RBC Hgb Hct MCV MCH MCHC RDW Plt Count MPV Neut % (Auto) Lymph % (Auto) Wirt % (Auto) Eos % (Auto) Baso % (Auto) Neut # (Auto) Lymph # (Auto) Wirt # (Auto) Eos # (Auto) Baso # (Auto) PT 12.4 H INR 1.1 APTT 36 H D-Dimer, Quantitative 4664 H Sodium Potassium Chloride Carbon Dioxide Anion Gap BUN Creatinine Est GFR ( Amer) Est GFR (Non-Af Amer) POC Glucose (mg/dL) 308 H Random Glucose Calcium Phosphorus Magnesium Total Bilirubin AST ALT Alkaline Phosphatase Troponin I Total Protein Albumin Globulin Albumin/Globulin Ratio 01/07/18 01/08/18 01/08/18 21:07 02:04 04:21 WBC 7.3 RBC 4.36 Hgb 11.9 Hct 36.3 MCV 83.2 MCH 27.3 MCHC 32.8 L RDW 14.0 Plt Count 227 MPV 9.3 Neut % (Auto) 54.8 Lymph % (Auto) 35.3 Wirt % (Auto) 6.7 Eos % (Auto) 2.0 Baso % (Auto) 1.2 Neut # (Auto) 4.0 Lymph # (Auto) 2.6 Wirt # (Auto) 0.5 Eos # (Auto) 0.1 Baso # (Auto) 0.1 PT INR APTT 90 H D D-Dimer, Quantitative Sodium Potassium Chloride Carbon Dioxide Anion Gap BUN Creatinine Est GFR ( Amer) Est GFR (Non-Af Amer) POC Glucose (mg/dL) 246 H Random Glucose Calcium Phosphorus Magnesium Total Bilirubin AST ALT Alkaline Phosphatase Troponin I Total Protein Albumin Globulin Albumin/Globulin Ratio 01/08/18 01/08/18 01/08/18 04:21 06:20 07:17 WBC RBC Hgb Hct MCV MCH MCHC RDW Plt Count MPV Neut % (Auto) Lymph % (Auto) Wirt % (Auto) Eos % (Auto) Baso % (Auto) Neut # (Auto) Lymph # (Auto) Wirt # (Auto) Eos # (Auto) Baso # (Auto) PT INR APTT D-Dimer, Quantitative Sodium 140 Potassium 4.2 Chloride 103 Carbon Dioxide 25 Anion Gap 17 BUN 20 H Creatinine 1.1 Est GFR ( Amer) 60 Est GFR (Non-Af Amer) 49 POC Glucose (mg/dL) 253 H Random Glucose 146 H Calcium 9.3 Phosphorus 4.0 Magnesium 1.7 Total Bilirubin 0.5 AST 23 ALT 24 Alkaline Phosphatase 89 Troponin I 1.6400 H* Total Protein 7.0 Albumin 3.9 Globulin 3.1 Albumin/Globulin Ratio 1.3 01/08/18 01/08/18 08:18 11:05 WBC RBC Hgb Hct MCV MCH MCHC RDW Plt Count MPV Neut % (Auto) Lymph % (Auto) Wirt % (Auto) Eos % (Auto) Baso % (Auto) Neut # (Auto) Lymph # (Auto) Wirt # (Auto) Eos # (Auto) Baso # (Auto) PT INR APTT 99 H D D-Dimer, Quantitative Sodium Potassium Chloride Carbon Dioxide Anion Gap BUN Creatinine Est GFR ( Amer) Est GFR (Non-Af Amer) POC Glucose (mg/dL) 349 H Random Glucose Calcium Phosphorus Magnesium Total Bilirubin AST ALT Alkaline Phosphatase Troponin I Total Protein Albumin Globulin Albumin/Globulin Ratio EKG/Cardiology Studies: Cardiology / EKG Studies 01/08/18 06:07 EKG [ELECTROCARDIOGRAM] Stat Comment: Mode Of Transportation: PORTABLE Reason For Exam: chest pain PERFORMING PHYSICIAN/PROVIDER:: Vicente Acharya Fingerstick Blood Sugar Results: 349 Critical Care Progress Note - Nutrition Nutrition: Nutrition Category Date Time Status Consistent Carbohydrate [DIET] Diets 01/07/18 Breakfast Active Assessment/Plan - Assessment and Plan (Free Text) Assessment: 67-year-old female with a PMHx of CAD s/p CABG and PPM. admitted with acute chest pain to the intensive care unit, unstable angina. Cath [facility] [employer] [facility] called on 01/07 for chest pain PLAN: Neuro: -AAOX3 -Monitor mental status CardioVasc: NSTEMI -ASA, Heparin drip, O2 NC prn -Nitroglycerin drip. -Cardiology evaluation and follow-up Dr Vanegas Cath tmrw -Patient may need angiogram again. Uncontrolled hypertension. -Currently stable with a nitroglycerin drip. -Will continue the IV hydration and will follow the patient -metoprolol 25 BID -Enalapril @ 5 -Nitro @ 5 Pulm: Maintian spO2 >92% Nasal Canula prn ID: no leukocytosis afebrile Endo: ISS Glipizide 5 po and 15HS Renal: Cr: 1.1 Monitor and repleat electrolytes monitor i&os GI PPX: NPO past midnight Heparin Drip @10/mg/kg/hr d/w Dr Marianne Mares PGY1
[2018-01-08] MEDS: Nitroglycerin 50mg in D5W 50 MG/250 ML BOTTLE IV SCH (17:03)
--- NOTE | 2018-01-08 22:02 | CARD ---
APPROVED REPORT Date of service: 01/08/2018 EXAM: Two-dimensional and M-mode echocardiogram with Doppler and color Doppler. Other Information Quality : TDSRhythm : Surgery/Intervention Pacemaker: RISK FACTORS Hypertension 2D DIMENSIONS IVSd1.1 (0.7-1.1cm)LVDd2.4 (3.9-5.9cm) LVOT Diameter2.0 (1.8-2.4cm)PWd1.0 (0.7-1.1cm) LA Flbuvb71 (18-58mL)LVDs1.5 (2.5-4.0cm) FS (%) 39.3 %LVEF (%)72.1 (>50%) LVEF ([employer])48 % M-Mode DIMENSIONS Left Atrium (MM)3.69 (2.5-4.0cm)Aortic Root2.68 (2.2-3.7cm) Aortic Cusp Exc.1.33 (1.5-2.0cm) Aortic Valve AoV Peak Yxleautn258.3cm/sAoV VTI27.7cmAO Peak GR.10mmHg LVOT Peak Ysqvamdf55.7cm/sLVOT VTI13.39cmAO Mean GR.6mmHg TATY (VMAX)1.39mc0HDV (VTI)1.45cm2 Mitral Valve MV E Kqkuesrp17.1cm/sMV A Edryrvsc43.1cm/sE/A ratio0.5 TDI Lateral E' Peak V3.77cm/sMedial E' Peak V3.64cm/sE/Lateral E'9.3 E/Medial E'9.6 Tricuspid Valve TR Peak Inptbczu671lv/sTR Peak Gr.45oxJtCJZN63qwLf LEFT VENTRICLE The left ventricle is normal size. There is normal left ventricular wall thickness. Left ventricle systolic function is normal. There is normal LV segmental wall motion. The left ventricular diastolic function is abnormal- Grade I-abnormal relaxation pattern. No left ventricle thrombus noted on this study. RIGHT VENTRICLE The right ventricle is normal size. The right ventricular systolic function is normal. There is a pacemaker lead in the right ventricle. ATRIA The left atrium size is normal. The right atrium size is normal. AORTIC VALVE The aortic valve is mildly to moderately calcified. No aortic regurgitation is present. There is moderate valvular aortic stenosis. Calculated aortic valve area is 1.2 cm2 with maximum pressure gradient of 10 mmHg and mean pressure gradient of 6 mmHg. MITRAL VALVE Mitral annular calcification is mild. There is no evidence of mitral valve prolapse. There is no mitral valve stenosis. There is no mitral valve regurgitation noted. TRICUSPID VALVE The tricuspid valve is normal in structure. There is trace to mild tricuspid regurgitation. Right ventricular systolic pressure is estimated at less than 30 mmHg. There is no pulmonary hypertension. There is no tricuspid valve prolapse or vegetation. There is no tricuspid valve stenosis. PULMONIC VALVE The pulmonic valve is not well visualized. There is no pulmonic valvular regurgitation. There is no pulmonic valvular stenosis. GREAT VESSELS The aortic root is not well visualized. The IVC is normal in size and collapses >50% with inspiration. PERICARDIAL EFFUSION There is no pericardial effusion. There is no pleural effusion. <Conclusion> Technically difficult study. The left ventricle isappears of normal size. The left ventricular diastolic function is abnormal- Grade I-abnormal relaxation pattern. The right ventricle is normal size. The right ventricular systolic function is normal. The left atrium size is normal. The right atrium size is normal. There is moderate valvular aortic stenosis. Calculated aortic valve area is 1.2 cm2 with maximum pressure gradient of 10 mmHg and mean pressure gradient of 6 mmHg. There is trace to mild tricuspid regurgitation.
[2018-01-08] MEDS: (Novolin N) Insulin Human Isophane (NPH) 100 u/ml 10 ml vial SC SCH (22:30)
--- NOTE | 2018-01-08 22:50 | CARD ---
APPROVED REPORT Date of service: 01/07/2018 EKG Measurement Heart [id number] <Conclusion> Normal sinus rhythm Right bundle branch block Left axis deviation Inferior-posterior infarct, age undetermined Abnormal ECG
--- NOTE | 2018-01-08 22:51 | CARD ---
APPROVED REPORT Date of service: 01/07/2018 EKG Measurement Heart [id number] <Conclusion> Ventricular-paced rhythm at 131 bpm Abnormal ECG
[2018-01-09] MEDS: Metoprolol Succinate 25 mg XL Tab PO SCH ×2 (05:15→10:00)
[2018-01-09 05:48] LABS: BASO # 0.1 K/uL (0.0-0.2); BASO % 1.2 % (0.0-2.0); EOS # 0.2 K/uL (0.0-0.7); EOS % 2.4 % (0.0-4.0); HEMOGLOBIN 12.4 g/dL (11.0-16.0); LYMPH % 30.5 % (20.0-40.0); MEAN CORPUSCULAR HEMOGLOBIN 27.7 pg (27.0-31.0); MEAN CORPUSCULAR HGB CONC 33.4 g/dL (33.0-37.0); MEAN PLATELET VOLUME 8.9 fL (7.2-11.7); MONO # 0.6 K/uL (0.0-0.8); MONO % 9.4 % (0.0-10.0); NEUT # 3.6 K/uL (1.8-7.0); NEUT % 56.5 % (50.0-75.0); NRBC % 0.1 % (0.0-2.0); RBC 4.46 Mil/uL (3.80-5.20); RED CELL DISTRIBUTION WIDTH 13.9 % (11.5-14.5); WHITE BLOOD COUNT 6.4 K/uL (4.8-10.8)
[2018-01-09 06:30] LABS: ALB/GLOB RATIO 1.4 (1.0-2.1); ALBUMIN 4.3 g/dL (3.5-5.0); ALT/SGPT 19 U/L (9-52); AST/SGOT 20 U/L (14-36); BLOOD UREA NITROGEN 14 mg/dL (7-17); CALCIUM 9.7 mg/dl (8.6-10.4); GFR NON-AFRICAN AMERICAN 55
[2018-01-09] MEDS: (Novolin R) Insulin Human Regular 100 units/ml vial SC SCH ×4 (07:30→22:12)
[2018-01-09] MEDS: GlipiZIDE 5 mg SR Tab PO SCH ×2 (10:00→22:10)
[2018-01-09] MEDS ORDERED: Lidocaine 1% 20 MG/2 ML PF AMP ONE ×2 (11:33→11:34)
[2018-01-09] MEDS ORDERED: Iodixanol 320 MG/ML 100 ML BOTTLE IV ONE ×2 (11:34→12:07)
[2018-01-09] MEDS ORDERED: DiphenhydrAMINE 50 mg/ml Inj ONE (11:36)
[2018-01-09] MEDS ORDERED: Midazolam 2 MG/2 ML VIAL ONE (11:56)
--- NOTE | 2018-01-09 12:49 | VASCLAB ---
Date of service: 01/08/2018 PROCEDURE: Lower Extremity Venous Duplex Exam. HISTORY: recent surgery, tachycardia PRIORS: None. TECHNIQUE: Bilateral common femoral, femoral, popliteal and posterior tibial, peroneal and great saphenous veins were evaluated. Flow was assessed with color Doppler, compressibility, assessment of phasic flow and augmentation response. Report prepared by Pawel Blancas, BS, RVT FINDINGS: RIGHT: 1. Common Femoral Vein: 1.1. Compressibility - Fully compressible: Thrombus - None : Flow - Phasic: Augmentation -Normal: Reflux - None. 2. Femoral Vein: 2.1. Compressibility - Fully compressible: Thrombus - None : Flow - Phasic: Augmentation -Normal: Reflux - None. 3. Popliteal Vein: 3.1. Compressibility - Fully compressible: Thrombus - None : Flow - Phasic: Augmentation -Normal: Reflux - None. 4. Posterior Tibial Vein: 4.1. Compressibility - Fully compressible: Thrombus - None: Flow - Phasic: Augmentation -Normal: Reflux - None. 5. Peroneal Vein: 5.1. Compressibility - Fully compressible: Thrombus - None: Flow - Phasic: Augmentation -Normal: Reflux - None. 6. Great Saphenous Vein: 6.1. Compressibility - Fully compressible: Thrombus - None: Flow - Phasic: Augmentation - Normal: Reflux - None. LEFT: 1. Common Femoral Vein: 1.1. Compressibility - Fully compressible: Thrombus - None: Flow - Phasic: Augmentation -Normal: Reflux - None. 2. Femoral Vein: 2.1. Compressibility - Fully compressible: Thrombus - None: Flow - Phasic: Augmentation -Normal: Reflux - None. 3. Popliteal Vein: 3.1. Compressibility - Fully compressible: Thrombus - None : Flow - Phasic: Augmentation -Normal: Reflux - None. 4. Posterior Tibial Vein: 4.1. Compressibility - Fully compressible: Thrombus - None: Flow - Phasic: Augmentation -Normal: Reflux - None. 5. Peroneal Vein: 5.1. Compressibility - Fully compressible: Thrombus - None: Flow - Phasic: Augmentation -Normal: Reflux - None. 6. Great Saphenous Vein: 6.1. Compressibility - Fully compressible: Thrombus - None: Flow - Phasic: Augmentation - Normal: Reflux - None. OTHER FINDINGS: Right: None significant. Left: None significant. IMPRESSION: Right: No evidence of deep or superficial vein thrombosis of the right lower extremity. Normal valve function noted of the right side. Left: No evidence of deep or superficial vein thrombosis of the left lower extremity. Normal valve function noted of the left side.
--- NOTE | 2018-01-09 13:31 | CP.CCUPN ---
<Vicente Mares - Last Filed: 01/09/18 14:54> CCU Subjective - Physician Review Subjective (Free Text): Pt seen and examined at bedside.pt reports an episode of chest pain last night and again this morning. Pt has no complaints now winsce receiving morphine IVP. Pt went for cath today. Pt denies CP SOB FC [place] Palps 01/09/18 14:44 CCU Objective - Vital Signs / Intake & Output Vital Signs (Last 4 hours): Vital Signs Pulse Resp BP Pulse Ox 01/09/18 11:01 86 13 117/71 97 01/09/18 11:00 87 19 95 01/09/18 10:45 82 16 95 01/09/18 10:30 84 15 96 01/09/18 10:15 89 19 98 01/09/18 10:01 87 14 123/72 97 01/09/18 10:00 88 17 97 01/09/18 09:45 87 17 97 01/09/18 09:30 88 18 98 Intake and Output (Last 8hrs): Intake & Output 01/08/18 01/09/18 01/09/18 22:59 06:59 14:59 Intake Total 553.7 84.8 49.0 Output Total 850 650 300 Balance -296.3 -565.2 -251.0 Weight 141 lb 1.533 oz Intake: IV 50 0 Intake, IV Amount 43.7 24.8 19.0 Left Forearm 10 Right Antecubital 19.5 12.0 9.0 right AC Piggyback 24.2 12.8 Oral 460 60 30 Output: Urine 850 650 300 Urine, Voided 850 650 300 Other: # Voids Urine, Voided 0 1 0 # Bowel Movements 0 0 0 - Physical Exam Head: Positive for: Atraumatic, Normocephalic Pupils: Positive for: PERRL Extroacular Muscles: Positive for: EOMI Conjunctiva: Positive for: Normal Mouth: Positive for: Moist Mucous Membranes - Medications Active Medications: Active Medications Generic Name Dose Route Start Last Admin Trade Name Freq PRN Reason Stop Dose Admin Acetaminophen 650 mg 01/07/18 21:12 01/09/18 05:27 Tylenol 325mg Tab PO 650 mg Q6 PRN Administration Headache Aspirin 81 mg 01/07/18 10:00 01/09/18 07:08 Ecotrin PO 81 mg DAILY DANIEL Administration Dextrose 0 ml 01/07/18 05:13 Dextrose 50% Inj IV STAT PRN Hypoglycemia Protocol Protocol Dextrose 0 gm 01/07/18 05:13 Glutose 15 PO ONCE PRN Hypoglycemia Protocol Protocol Enalapril Maleate 5 mg 01/07/18 10:00 01/09/18 05:15 Vasotec PO 5 mg DAILY DANIEL Administration Famotidine 20 mg 01/07/18 10:00 01/09/18 07:09 Pepcid PO 20 mg DAILY DANIEL Administration Glipizide 5 mg 01/07/18 10:00 01/08/18 09:56 Glucotrol Xl PO 5 mg DAILY DANIEL Administration Glipizide 15 mg 01/07/18 22:00 01/08/18 22:20 Glucotrol Xl PO Not Given HS DANIEL Glucagon 0 mg 01/07/18 05:13 Glucagen Diagnostic Kit IM STAT PRN Hypoglycemia Protocol Protocol Dextrose 1,000 mls @ 0 mls/hr 01/07/18 05:13 Dextrose 5% In Water 1000 Ml IV .Q0M PRN Hypoglycemia Protocol Protocol Per Protocol Nitroglycerin/Dextrose 50 mg in 250 mls @ 1.5 mls/hr 01/07/18 13:30 01/08/18 18:43 Nitroglycerin 50 Mg/250 Ml D5w IV 5 mcg/min .Q24H DANIEL 1.5 mls/hr Titration Protocol 5 MCG/MIN Heparin Sodium/Sodium Chloride 25,000 units in 250 mls @ 6.305 mls/hr 01/07/18 19:06 01/09/18 03:00 Heparin 47960 Units/250ml 1/2 Normal Saline IV 0 units/kg/hr .Q24H PRN 0 mls/hr PROTOCOL Titration Protocol 10 UNITS/KG/HR Insulin Human NPH 12 unit 01/07/18 22:00 01/08/18 22:30 Novolin N SC 12 u HS DANIEL Administration Insulin Human Regular 0 unit 01/08/18 11:28 01/09/18 07:30 Novolin R SC Not Given ACHS DANIEL Protocol Metoprolol Succinate 25 mg 01/07/18 10:00 01/09/18 05:15 Toprol Xl PO 25 mg DAILY DANIEL Administration Nitroglycerin 0.4 mg 01/07/18 12:09 Nitrostat Sl Tab SL Q5M PRN Pain, moderate (4-7) Rosuvastatin Calcium 20 mg 01/07/18 22:00 01/08/18 22:29 Crestor PO 20 mg HS DANIEL Administration - Patient Studies Lab Studies: Microbiology Studies 01/07/18 13:50 MRSA Culture (Admit) - Final Nose MRSA NOT DETECTED Lab Studies 01/09/18 01/09/18 01/09/18 Range/Units 07:29 05:33 05:33 WBC 6.4 (4.8-10.8) K/uL RBC 4.46 (3.80-5.20) Mil/uL Hgb 12.4 (11.0-16.0) g/dL Hct 37.0 (34.0-47.0) % MCV 83.0 (81.0-99.0) fL MCH 27.7 (27.0-31.0) pg MCHC 33.4 (33.0-37.0) g/dL RDW 13.9 (11.5-14.5) % Plt Count 239 (130-400) K/uL MPV 8.9 (7.2-11.7) fL Neut % (Auto) 56.5 (50.0-75.0) % Lymph % (Auto) 30.5 (20.0-40.0) % [place] % (Auto) 9.4 (0.0-10.0) % Eos % (Auto) 2.4 (0.0-4.0) % Baso % (Auto) 1.2 (0.0-2.0) % Neut # (Auto) 3.6 (1.8-7.0) K/uL Lymph # (Auto) 2.0 (1.0-4.3) K/uL [place] # (Auto) 0.6 (0.0-0.8) K/uL Eos # (Auto) 0.2 (0.0-0.7) K/uL Baso # (Auto) 0.1 (0.0-0.2) K/uL APTT (21-34) SECONDS Sodium 141 (132-148) mmol/L Potassium 4.7 (3.6-5.2) mmol/L Chloride 102 (98-107) mmol/L Carbon Dioxide 26 (22-30) mmol/L Anion Gap 17 (10-20) BUN 14 (7-17) mg/dL Creatinine 1.0 (0.7-1.2) mg/dL Est GFR ( Amer) > 60 Est GFR (Non-Af Amer) 55 POC Glucose (mg/dL) 212 H (65-110) mg/dL Random Glucose 217 H (65-105) mg/dL Calcium 9.7 (8.6-10.4) mg/dl Phosphorus 3.6 (2.5-4.5) mg/dL Magnesium 1.7 (1.6-2.3) mg/dL Total Bilirubin 0.7 (0.2-1.3) mg/dL AST 20 (14-36) U/L ALT 19 (9-52) U/L Alkaline Phosphatase 98 (38-126) U/L Total Protein 7.5 (6.3-8.3) g/dL Albumin 4.3 (3.5-5.0) g/dL Globulin 3.2 (2.2-3.9) gm/dL Albumin/Globulin Ratio 1.4 (1.0-2.1) 01/09/18 01/08/18 01/08/18 Range/Units 00:55 21:15 17:52 WBC (4.8-10.8) K/uL RBC (3.80-5.20) Mil/uL Hgb (11.0-16.0) g/dL Hct (34.0-47.0) % MCV (81.0-99.0) fL MCH (27.0-31.0) pg MCHC (33.0-37.0) g/dL RDW (11.5-14.5) % Plt Count (130-400) K/uL MPV (7.2-11.7) fL Neut % (Auto) (50.0-75.0) % Lymph % (Auto) (20.0-40.0) % [place] % (Auto) (0.0-10.0) % Eos % (Auto) (0.0-4.0) % Baso % (Auto) (0.0-2.0) % Neut # (Auto) (1.8-7.0) K/uL Lymph # (Auto) (1.0-4.3) K/uL [place] # (Auto) (0.0-0.8) K/uL Eos # (Auto) (0.0-0.7) K/uL Baso # (Auto) (0.0-0.2) K/uL APTT 44 H D (21-34) SECONDS Sodium (132-148) mmol/L Potassium (3.6-5.2) mmol/L Chloride (98-107) mmol/L Carbon Dioxide (22-30) mmol/L Anion Gap (10-20) BUN (7-17) mg/dL Creatinine (0.7-1.2) mg/dL Est GFR ( Amer) Est GFR (Non-Af Amer) POC Glucose (mg/dL) 225 H 212 H (65-110) mg/dL Random Glucose (65-105) mg/dL Calcium (8.6-10.4) mg/dl Phosphorus (2.5-4.5) mg/dL Magnesium (1.6-2.3) mg/dL Total Bilirubin (0.2-1.3) mg/dL AST (14-36) U/L ALT (9-52) U/L Alkaline Phosphatase (38-126) U/L Total Protein (6.3-8.3) g/dL Albumin (3.5-5.0) g/dL Globulin (2.2-3.9) gm/dL Albumin/Globulin Ratio (1.0-2.1) 01/08/18 01/08/18 01/08/18 Range/Units 16:07 16:06 14:50 WBC (4.8-10.8) K/uL RBC (3.80-5.20) Mil/uL Hgb (11.0-16.0) g/dL Hct (34.0-47.0) % MCV (81.0-99.0) fL MCH (27.0-31.0) pg MCHC (33.0-37.0) g/dL RDW (11.5-14.5) % Plt Count (130-400) K/uL MPV (7.2-11.7) fL Neut % (Auto) (50.0-75.0) % Lymph % (Auto) (20.0-40.0) % [place] % (Auto) (0.0-10.0) % Eos % (Auto) (0.0-4.0) % Baso % (Auto) (0.0-2.0) % Neut # (Auto) (1.8-7.0) K/uL Lymph # (Auto) (1.0-4.3) K/uL [place] # (Auto) (0.0-0.8) K/uL Eos # (Auto) (0.0-0.7) K/uL Baso # (Auto) (0.0-0.2) K/uL APTT 149 H* D (21-34) SECONDS Sodium (132-148) mmol/L Potassium (3.6-5.2) mmol/L Chloride (98-107) mmol/L Carbon Dioxide (22-30) mmol/L Anion Gap (10-20) BUN (7-17) mg/dL Creatinine (0.7-1.2) mg/dL Est GFR ( Amer) Est GFR (Non-Af Amer) POC Glucose (mg/dL) 70 67 (65-110) mg/dL Random Glucose (65-105) mg/dL Calcium (8.6-10.4) mg/dl Phosphorus (2.5-4.5) mg/dL Magnesium (1.6-2.3) mg/dL Total Bilirubin (0.2-1.3) mg/dL AST (14-36) U/L ALT (9-52) U/L Alkaline Phosphatase (38-126) U/L Total Protein (6.3-8.3) g/dL Albumin (3.5-5.0) g/dL Globulin (2.2-3.9) gm/dL Albumin/Globulin Ratio (1.0-2.1) Laboratory Results - last 24 hr 01/08/18 01/08/18 01/08/18 14:50 16:06 16:07 WBC RBC Hgb Hct MCV MCH MCHC RDW Plt Count MPV Neut % (Auto) Lymph % (Auto) [place] % (Auto) Eos % (Auto) Baso % (Auto) Neut # (Auto) Lymph # (Auto) [place] # (Auto) Eos # (Auto) Baso # (Auto) APTT 149 H* D Sodium Potassium Chloride Carbon Dioxide Anion Gap BUN Creatinine Est GFR ( Amer) Est GFR (Non-Af Amer) POC Glucose (mg/dL) 67 70 Random Glucose Calcium Phosphorus Magnesium Total Bilirubin AST ALT Alkaline Phosphatase Total Protein Albumin Globulin Albumin/Globulin Ratio 01/08/18 01/08/18 01/09/18 17:52 21:15 00:55 WBC RBC Hgb Hct MCV MCH MCHC RDW Plt Count MPV Neut % (Auto) Lymph % (Auto) [place] % (Auto) Eos % (Auto) Baso % (Auto) Neut # (Auto) Lymph # (Auto) [place] # (Auto) Eos # (Auto) Baso # (Auto) APTT 44 H D Sodium Potassium Chloride Carbon Dioxide Anion Gap BUN Creatinine Est GFR ( Amer) Est GFR (Non-Af Amer) POC Glucose (mg/dL) 212 H 225 H Random Glucose Calcium Phosphorus Magnesium Total Bilirubin AST ALT Alkaline Phosphatase Total Protein Albumin Globulin Albumin/Globulin Ratio 01/09/18 01/09/18 01/09/18 05:33 05:33 07:29 WBC 6.4 RBC 4.46 Hgb 12.4 Hct 37.0 MCV 83.0 MCH 27.7 MCHC 33.4 RDW 13.9 Plt Count 239 MPV 8.9 Neut % (Auto) 56.5 Lymph % (Auto) 30.5 [place] % (Auto) 9.4 Eos % (Auto) 2.4 Baso % (Auto) 1.2 Neut # (Auto) 3.6 Lymph # (Auto) 2.0 [place] # (Auto) 0.6 Eos # (Auto) 0.2 Baso # (Auto) 0.1 APTT Sodium 141 Potassium 4.7 Chloride 102 Carbon Dioxide 26 Anion Gap 17 BUN 14 Creatinine 1.0 Est GFR ( Amer) > 60 Est GFR (Non-Af Amer) 55 POC Glucose (mg/dL) 212 H Random Glucose 217 H Calcium 9.7 Phosphorus 3.6 Magnesium 1.7 Total Bilirubin 0.7 AST 20 ALT 19 Alkaline Phosphatase 98 Total Protein 7.5 Albumin 4.3 Globulin 3.2 Albumin/Globulin Ratio 1.4 Fingerstick Blood Sugar Results: 212 Review of Systems - Review of Systems All systems: reviewed and no additional remarkable complaints except (subjective) Critical Care Progress Note - Nutrition Nutrition: Nutrition Category Date Time Status NPO Diet [DIET] Diets 01/09/18 Breakfast Active Assessment/Plan - Assessment and Plan (Free Text) Assessment: 67-year-old female with a PMHx of CAD s/p CABG and PPM. admitted with acute chest pain to the intensive care unit, unstable angina. Cath Today w/ Dr Vanegas [employer] called on 01/07 for chest pain PLAN: Neuro: -AAOX3 -Monitor mental status CardioVasc: NSTEMI -ASA, Plavix, Lovenox, O2 NC prn -Nitroglycerin drip. -Cardiology evaluation and follow-up Dr Vanegas Cath today Likely LAD occulsion Hypokinesis of L Ventricle will stent tmrw if CTA neg for PE -Patient may need angiogram again. Uncontrolled hypertension. -Currently stable with a nitroglycerin drip. -Will continue the IV hydration and will follow the patient -metoprolol 25 BID -Enalapril @ 5 -Nitro @ 5 Pulm: r/o PE f/u CTA tmrw AM -prednisoe protocol 50 q6 x3 before contrast -benadryl 1hr before contrast [place] spO2 >92% Nasal Canula prn ID: no leukocytosis afebrile Endo: ISS Glipizide 5 po and 15HS Renal: Cr: 1.0 Monitor and repleat electrolytes monitor i&os GI PPX: Pepcid 20 qd Lovenox 40 sc daily d/w Dr Gui Mares PGY1 <Faraz Messer S - Last Filed: 01/09/18 17:58> CCU Objective - Vital Signs / Intake & Output Vital Signs (Last 4 hours): Vital Signs Temp Pulse Resp BP Pulse Ox 01/09/18 17:06 86 19 105/55 L 01/09/18 17:00 88 16 96 01/09/18 16:59 86 18 105/55 L 96 01/09/18 16:45 87 18 99 01/09/18 16:30 87 19 96 01/09/18 16:15 92 H 17 01/09/18 16:06 97.8 F 89 18 104/61 01/09/18 16:00 97.8 F 90 18 96 01/09/18 15:45 89 18 96 01/09/18 15:36 94 H 14 112/66 01/09/18 15:32 89 18 104/61 97 01/09/18 15:30 86 15 98 01/09/18 15:20 94 H 14 112/66 99 01/09/18 15:15 96 H 18 98 01/09/18 15:06 88 18 108/69 99 01/09/18 15:00 87 16 99 01/09/18 14:50 93 H 13 118/73 98 01/09/18 14:45 90 16 98 01/09/18 14:36 91 H 18 116/70 01/09/18 14:35 88 18 119/70 99 01/09/18 14:30 92 H 21 95 01/09/18 14:21 91 H 16 116/70 98 01/09/18 14:15 92 H 20 97 01/09/18 14:06 93 H 16 114/72 01/09/18 14:05 86 17 114/72 99 01/09/18 14:00 88 20 98 Intake and Output (Last 8hrs): Intake & Output 01/09/18 01/09/18 01/09/18 06:59 14:59 22:59 Intake Total 84.8 252.0 594.5 Output Total 650 300 550 Balance -565.2 -48.0 44.5 Weight 141 lb 1.533 oz Intake: IV 0 Intake, IV Amount 24.8 222.0 54.5 Left Forearm 10 Right Antecubital 12.0 12.0 4.5 right AC Piggyback 12.8 200 50 Oral 60 30 540 Output: Urine 650 300 550 Urine, Voided 650 300 550 Other: # Voids Urine, Voided 1 0 1 # Bowel Movements 0 0 0 - Medications Active Medications: Active Medications Generic Name Dose Route Start Last Admin Trade Name Freq PRN Reason Stop Dose Admin Acetaminophen 650 mg 01/07/18 21:12 01/09/18 05:27 Tylenol 325mg Tab PO 650 mg Q6 PRN Administration Headache Aspirin 81 mg 01/07/18 10:00 01/09/18 10:00 Ecotrin PO Not Given DAILY DANIEL Clopidogrel Bisulfate 75 mg 01/10/18 10:00 Plavix PO DAILY DANIEL Dextrose 0 ml 01/07/18 05:13 Dextrose 50% Inj IV STAT PRN Hypoglycemia Protocol Protocol Dextrose 0 gm 01/07/18 05:13 Glutose 15 PO ONCE PRN Hypoglycemia Protocol Protocol Diphenhydramine HCl 25 mg 01/10/18 06:00 Benadryl IVP 01/10/18 06:01 ONCE ONE Enalapril Maleate 5 mg 01/07/18 10:00 01/09/18 10:00 Vasotec PO Not Given DAILY [facility] Enoxaparin Sodium 40 mg 01/10/18 10:00 Lovenox SC DAILY [facility] Famotidine 20 mg 01/07/18 10:00 01/09/18 10:00 Pepcid PO Not Given DAILY [facility] Glipizide 5 mg 01/07/18 10:00 01/09/18 10:00 Glucotrol Xl PO Not Given DAILY DANIEL Glipizide 15 mg 01/07/18 22:00 01/08/18 22:20 Glucotrol Xl PO Not Given HS [facility] Glucagon 0 mg 01/07/18 05:13 Glucagen Diagnostic Kit IM STAT PRN Hypoglycemia Protocol Protocol Dextrose 1,000 mls @ 0 mls/hr 01/07/18 05:13 Dextrose 5% In Water 1000 Ml IV .Q0M PRN Hypoglycemia Protocol Protocol Per Protocol Nitroglycerin/Dextrose 50 mg in 250 mls @ 1.5 mls/hr 01/07/18 13:30 01/09/18 13:40 Nitroglycerin 50 Mg/250 Ml D5w IV Not Given .Q24H DANIEL Protocol 5 MCG/MIN Insulin Human NPH 12 unit 01/07/18 22:00 01/08/18 22:30 Novolin N SC 12 u HS DANIEL Administration Insulin Human Regular 0 unit 01/08/18 11:28 01/09/18 16:54 Novolin R SC 12 u ACHS DANIEL Administration Protocol Metformin HCl 500 mg 01/09/18 18:00 01/09/18 17:43 Glucophage PO 500 mg BID DANIEL Administration Methylprednisolone 50 mg 01/09/18 17:00 01/09/18 16:55 Solu-Medrol IVP 01/10/18 05:01 50 mg Q6H DANIEL Administration Metoprolol Succinate 25 mg 01/07/18 10:00 01/09/18 10:00 Toprol Xl PO Not Given DAILY [facility] Nitroglycerin 0.4 mg 01/07/18 12:09 Nitrostat Sl Tab SL Q5M PRN Pain, moderate (4-7) Rosuvastatin Calcium 20 mg 01/07/18 22:00 01/08/18 22:29 Crestor PO 20 mg HS [facility] Administration - Patient Studies Lab Studies: Lab Studies 01/09/18 01/09/18 01/09/18 Range/Units 16:41 13:27 07:29 WBC (4.8-10.8) K/uL RBC (3.80-5.20) Mil/uL Hgb (11.0-16.0) g/dL Hct (34.0-47.0) % MCV (81.0-99.0) fL MCH (27.0-31.0) pg MCHC (33.0-37.0) g/dL RDW (11.5-14.5) % Plt Count (130-400) K/uL MPV (7.2-11.7) fL Neut % (Auto) (50.0-75.0) % Lymph % (Auto) (20.0-40.0) % [place] % (Auto) (0.0-10.0) % Eos % (Auto) (0.0-4.0) % Baso % (Auto) (0.0-2.0) % Neut # (Auto) (1.8-7.0) K/uL Lymph # (Auto) (1.0-4.3) K/uL [place] # (Auto) (0.0-0.8) K/uL Eos # (Auto) (0.0-0.7) K/uL Baso # (Auto) (0.0-0.2) K/uL APTT (21-34) SECONDS Sodium (132-148) mmol/L Potassium (3.6-5.2) mmol/L Chloride (98-107) mmol/L Carbon Dioxide (22-30) mmol/L Anion Gap (10-20) BUN (7-17) mg/dL Creatinine (0.7-1.2) mg/dL Est GFR ( Amer) Est GFR (Non-Af Amer) POC Glucose (mg/dL) 475 H* 232 H 212 H (65-110) mg/dL Random Glucose (65-105) mg/dL Calcium (8.6-10.4) mg/dl Phosphorus (2.5-4.5) mg/dL Magnesium (1.6-2.3) mg/dL Total Bilirubin (0.2-1.3) mg/dL AST (14-36) U/L ALT (9-52) U/L Alkaline Phosphatase (38-126) U/L Total Protein (6.3-8.3) g/dL Albumin (3.5-5.0) g/dL Globulin (2.2-3.9) gm/dL Albumin/Globulin Ratio (1.0-2.1) 01/09/18 01/09/18 01/09/18 Range/Units 05:33 05:33 00:55 WBC 6.4 (4.8-10.8) K/uL RBC 4.46 (3.80-5.20) Mil/uL Hgb 12.4 (11.0-16.0) g/dL Hct 37.0 (34.0-47.0) % MCV 83.0 (81.0-99.0) fL MCH 27.7 (27.0-31.0) pg MCHC 33.4 (33.0-37.0) g/dL RDW 13.9 (11.5-14.5) % Plt Count 239 (130-400) K/uL MPV 8.9 (7.2-11.7) fL Neut % (Auto) 56.5 (50.0-75.0) % Lymph % (Auto) 30.5 (20.0-40.0) % [place] % (Auto) 9.4 (0.0-10.0) % Eos % (Auto) 2.4 (0.0-4.0) % Baso % (Auto) 1.2 (0.0-2.0) % Neut # (Auto) 3.6 (1.8-7.0) K/uL Lymph # (Auto) 2.0 (1.0-4.3) K/uL [place] # (Auto) 0.6 (0.0-0.8) K/uL Eos # (Auto) 0.2 (0.0-0.7) K/uL Baso # (Auto) 0.1 (0.0-0.2) K/uL APTT 44 H D (21-34) SECONDS Sodium 141 (132-148) mmol/L Potassium 4.7 (3.6-5.2) mmol/L Chloride 102 (98-107) mmol/L Carbon Dioxide 26 (22-30) mmol/L Anion Gap 17 (10-20) BUN 14 (7-17) mg/dL Creatinine 1.0 (0.7-1.2) mg/dL Est GFR ( Amer) > 60 Est GFR (Non-Af Amer) 55 POC Glucose (mg/dL) (65-110) mg/dL Random Glucose 217 H (65-105) mg/dL Calcium 9.7 (8.6-10.4) mg/dl Phosphorus 3.6 (2.5-4.5) mg/dL Magnesium 1.7 (1.6-2.3) mg/dL Total Bilirubin 0.7 (0.2-1.3) mg/dL AST 20 (14-36) U/L ALT 19 (9-52) U/L Alkaline Phosphatase 98 (38-126) U/L Total Protein 7.5 (6.3-8.3) g/dL Albumin 4.3 (3.5-5.0) g/dL Globulin 3.2 (2.2-3.9) gm/dL Albumin/Globulin Ratio 1.4 (1.0-2.1) 01/08/18 Range/Units 21:15 WBC (4.8-10.8) K/uL RBC (3.80-5.20) Mil/uL Hgb (11.0-16.0) g/dL Hct (34.0-47.0) % MCV (81.0-99.0) fL MCH (27.0-31.0) pg MCHC (33.0-37.0) g/dL RDW (11.5-14.5) % Plt Count (130-400) K/uL MPV (7.2-11.7) fL Neut % (Auto) (50.0-75.0) % Lymph % (Auto) (20.0-40.0) % [place] % (Auto) (0.0-10.0) % Eos % (Auto) (0.0-4.0) % Baso % (Auto) (0.0-2.0) % Neut # (Auto) (1.8-7.0) K/uL Lymph # (Auto) (1.0-4.3) K/uL [place] # (Auto) (0.0-0.8) K/uL Eos # (Auto) (0.0-0.7) K/uL Baso # (Auto) (0.0-0.2) K/uL APTT (21-34) SECONDS Sodium (132-148) mmol/L Potassium (3.6-5.2) mmol/L Chloride (98-107) mmol/L Carbon Dioxide (22-30) mmol/L Anion Gap (10-20) BUN (7-17) mg/dL Creatinine (0.7-1.2) mg/dL Est GFR ( Amer) Est GFR (Non-Af Amer) POC Glucose (mg/dL) 225 H (65-110) mg/dL Random Glucose (65-105) mg/dL Calcium (8.6-10.4) mg/dl Phosphorus (2.5-4.5) mg/dL Magnesium (1.6-2.3) mg/dL Total Bilirubin (0.2-1.3) mg/dL AST (14-36) U/L ALT (9-52) U/L Alkaline Phosphatase (38-126) U/L Total Protein (6.3-8.3) g/dL Albumin (3.5-5.0) g/dL Globulin (2.2-3.9) gm/dL Albumin/Globulin Ratio (1.0-2.1) Laboratory Results - last 24 hr 01/08/18 01/09/18 01/09/18 21:15 00:55 05:33 WBC 6.4 RBC 4.46 Hgb 12.4 Hct 37.0 MCV 83.0 MCH 27.7 MCHC 33.4 RDW 13.9 Plt Count 239 MPV 8.9 Neut % (Auto) 56.5 Lymph % (Auto) 30.5 [place] % (Auto) 9.4 Eos % (Auto) 2.4 Baso % (Auto) 1.2 Neut # (Auto) 3.6 Lymph # (Auto) 2.0 [place] # (Auto) 0.6 Eos # (Auto) 0.2 Baso # (Auto) 0.1 APTT 44 H D Sodium Potassium Chloride Carbon Dioxide Anion Gap BUN Creatinine Est GFR ( Amer) Est GFR (Non-Af Amer) POC Glucose (mg/dL) 225 H Random Glucose Calcium Phosphorus Magnesium Total Bilirubin AST ALT Alkaline Phosphatase Total Protein Albumin Globulin Albumin/Globulin Ratio 01/09/18 01/09/18 01/09/18 05:33 07:29 13:27 WBC RBC Hgb Hct MCV MCH MCHC RDW Plt Count MPV Neut % (Auto) Lymph % (Auto) [place] % (Auto) Eos % (Auto) Baso % (Auto) Neut # (Auto) Lymph # (Auto) [place] # (Auto) Eos # (Auto) Baso # (Auto) APTT Sodium 141 Potassium 4.7 Chloride 102 Carbon Dioxide 26 Anion Gap 17 BUN 14 Creatinine 1.0 Est GFR ( Amer) > 60 Est GFR (Non-Af Amer) 55 POC Glucose (mg/dL) 212 H 232 H Random Glucose 217 H Calcium 9.7 Phosphorus 3.6 Magnesium 1.7 Total Bilirubin 0.7 AST 20 ALT 19 Alkaline Phosphatase 98 Total Protein 7.5 Albumin 4.3 Globulin 3.2 Albumin/Globulin Ratio 1.4 01/09/18 16:41 WBC RBC Hgb Hct MCV MCH MCHC RDW Plt Count MPV Neut % (Auto) Lymph % (Auto) [place] % (Auto) Eos % (Auto) Baso % (Auto) Neut # (Auto) Lymph # (Auto) [place] # (Auto) Eos # (Auto) Baso # (Auto) APTT Sodium Potassium Chloride Carbon Dioxide Anion Gap BUN Creatinine Est GFR ( Amer) Est GFR (Non-Af Amer) POC Glucose (mg/dL) 475 H* Random Glucose Calcium Phosphorus Magnesium Total Bilirubin AST ALT Alkaline Phosphatase Total Protein Albumin Globulin Albumin/Globulin Ratio Critical Care Progress Note - Nutrition Nutrition: Nutrition Category Date Time Status Heart Healthy Diet [DIET] Diets 01/09/18 Lunch Active Attending/Attestation - Attestation I have personally seen and examined this patient.: Yes I have fully participated in the care of the patient.: Yes I have reviewed all pertinent clinical information: Yes Notes (Text): 01/09/18 17:58 critical care minutes 35 Patient seen and examined in the intensive care unit. Status post cardiac cath with LAD occlusion For CT angiogram ruled out pulmonary embolism Possible stenting tomorrow of LAD Continue anticoagulation
--- NOTE | 2018-01-09 13:33 | CP.PCM.PN ---
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% L Main: Mid 80% angulated dynamic lesion LAD/Diags: Patent L Cx: prox 50%, OMs patent RCA: Dominant and patent EF: 40%, Apical hypokinesis, EDP 15, Mild VEGA to LAD patent, Slow flow SVG to OM1 patent Given the presentation of ACS with Non ST elevation OR with positive Trops and new LV wall motion abnormailities recommend L main intervention Objective - Vital Signs/Intake and Output Vital Signs (last 24 hours): Temp Pulse Resp BP Pulse Ox 97.4 F L 86 13 117/71 97 01/09/18 08:00 01/09/18 11:01 01/09/18 11:01 01/09/18 11:01 01/09/18 11:01 Intake and Output: 01/09/18 01/09/18 06:59 18:59 Intake Total 325.1 49.0 Output Total 1100 300 Balance -774.9 -251.0 - Medications Medications: Current Medications Acetaminophen (Tylenol 325mg Tab) 650 mg PO Q6 PRN PRN Reason: Headache Last Admin: 01/09/18 05:27 Dose: 650 mg Aspirin (Ecotrin) 81 mg PO DAILY [facility] Last Admin: 01/09/18 07:08 Dose: 81 mg Dextrose (Dextrose 50% Inj) 0 ml IV STAT PRN; Protocol PRN Reason: Hypoglycemia Protocol Dextrose (Glutose 15) 0 gm PO ONCE PRN; Protocol PRN Reason: Hypoglycemia Protocol Enalapril Maleate (Vasotec) 5 mg PO DAILY [facility] Last Admin: 01/09/18 05:15 Dose: 5 mg Famotidine (Pepcid) 20 mg PO DAILY [facility] Last Admin: 01/09/18 07:09 Dose: 20 mg Glipizide (Glucotrol Xl) 5 mg PO DAILY [facility] Last Admin: 01/08/18 09:56 Dose: 5 mg Glipizide (Glucotrol Xl) 15 mg PO HS [facility] Last Admin: 01/08/18 22:20 Dose: Not Given Glucagon (Glucagen Diagnostic Kit) 0 mg IM STAT PRN; Protocol PRN Reason: Hypoglycemia Protocol Dextrose (Dextrose 5% In Water 1000 Ml) 1,000 mls @ 0 mls/hr IV .Q0M PRN; Protocol PRN Reason: Hypoglycemia Protocol Nitroglycerin/Dextrose (Nitroglycerin 50 Mg/250 Ml D5w) 50 mg in 250 mls @ 1.5 mls/hr IV .Q24H DANIEL; Protocol Last Titration: 01/08/18 18:43 Dose: 5 mcg/min, 1.5 mls/hr Heparin Sodium/Sodium Chloride (Heparin 74917 Units/250ml 1/2 Normal Saline) 25,000 units in 250 mls @ 6.305 mls/hr IV .Q24H PRN; Protocol PRN Reason: PROTOCOL Last Titration: 01/09/18 03:00 Dose: 0 units/kg/hr, 0 mls/hr Insulin Human NPH (Novolin N) 12 unit SC HS [facility] Last Admin: 01/08/18 22:30 Dose: 12 u Insulin Human Regular (Novolin R) 0 unit SC ACHS [facility]; Protocol Last Admin: 01/09/18 07:30 Dose: Not Given Metoprolol Succinate (Toprol Xl) 25 mg PO DAILY [facility] Last Admin: 01/09/18 05:15 Dose: 25 mg Nitroglycerin (Nitrostat Sl Tab) 0.4 mg SL Q5M PRN PRN Reason: Pain, moderate (4-7) Rosuvastatin Calcium (Crestor) 20 mg PO HS [facility] Last Admin: 01/08/18 22:29 Dose: 20 mg - Labs Labs: 01/09/18 05:33 01/09/18 05:33 PT 12.4 SECONDS (9.7-12.2) H 01/07/18 15:05 INR 1.1 01/07/18 15:05 APTT 44 SECONDS (21-34) H D 01/09/18 00:55
[2018-01-09] MEDS: Nitroglycerin 50mg in D5W 50 MG/250 ML BOTTLE IV SCH ×2 (13:40→23:47)
[2018-01-09] MEDS: MethylPREDNISolone 40 mg Vial IVP SCH ×2 (16:55→22:14)
[2018-01-09] MEDS ORDERED: MethylPREDNISolone 40 mg Vial IVP SCH (17:00)
--- NOTE | 2018-01-09 20:26 | CARD ---
APPROVED REPORT Date of service: 01/08/2018 EKG Measurement Heart [id number] <Conclusion> Normal sinus rhythm Left axis deviation Low voltage QRS Right bundle branch block Inferior infarct, age undetermined Abnormal ECG
[2018-01-09] MEDS: (Novolin N) Insulin Human Isophane (NPH) 100 u/ml 10 ml vial SC SCH (22:12)
--- NOTE | 2018-01-10 01:04 | CARDCATH ---
PROCEDURE DATE: 01/09/2018 PROCEDURES: 1. Left heart catheterization. 2. Coronary angiogram. 3. Left internal mammary artery graft angiogram. 4. Saphenous vein graft angiogram. REFERRING PHYSICIAN: Aquiles Strange MD PERFORMING PHYSICIAN: Waqas Vanegas MD CLINICAL INDICATIONS: 1. Chest pain. 2. Non-ST elevation myocardial infarction. 3. History of coronary artery disease and CABG. 4. Hypertension. 5. Hyperlipidemia. BRIEF CLINICAL HISTORY: Fadumo Dobson is a 67-year-old female, admitted with palpitation and chest pressure. Subsequent workup has revealed non-ST elevation myocardial infarction with new apical wall motion abnormalities. The patient's troponin was elevated. The patient was brought to medical lab assistant for coronary assessment. After informed consent, the patient was prepped and draped in the usual sterile fashion. Lidocaine 2% was given in the right groin for local anesthesia. The patient was premedicated for contrast allergy reaction. Using micropuncture technique, a 6-[place] sheath was introduced into the right common femoral artery. JR4, 6-[place] diagnostic catheter crossed into left ventricle. LVEDP measured. Contrast was injected and LV angiogram was done. The catheter was pulled back across the aortic valve. The gradient across the aortic valve was measured. The catheter was engaged into right coronary artery. Contrast was injected and right coronary angiogram was done. Using the same catheter, saphenous vein graft angiogram was done. Using the IM catheter, internal mammary graft angiogram was done. The catheter was exchanged to JL 3.5, 6-[place] guide catheter with side holes. The catheter was engaged into the left main coronary artery. Contrast was injected and left coronary angiogram was done. The patient tolerated this procedure well. Postprocedure, Mynx closure device was deployed with excellent hemostasis. FINDINGS: 1. Left main coronary artery has a mid 85% dynamic stenosis. LAD and diagonal branch are patent. 2. Left circumflex has proximal 50% stenosis. Distal left circumflex and the obtuse marginal branches are patent. 3. Right coronary artery is dominant and patent. 4. LV ejection fraction is approximately 35% to 40%. Apical diffuse hypokinesis. EDP is 15. There was a 10-mm gradient across the aortic valve, suggestive of mild aortic stenosis. VEGA to LAD is patent; however, the flow is sluggish. Saphenous vein graft obtuse marginal artery is patent. IMPRESSION: A 67-year-old female with a history of coronary artery bypass graft x2, admitted with non-ST elevation myocardial infarction and new wall motion abnormalities. Cardiac catheter revealed dynamic 85% mid left main coronary artery stenosis. Left internal mammary artery to left anterior descending flow is sluggish. Due to the presentation and ischemic symptoms, recommend left main coronary artery intervention. Waqas Vanegas MD
[2018-01-10] MEDS ORDERED: Insulin Human Regular 100 UNIT in Sodium Chloride 0.9% 99 ML IV SCH (01:45)
[2018-01-10] MEDS ORDERED: Insulin Human Regular 100 UNIT in Sodium Chloride 0.9% 99 ML SC SCH (01:45)
[2018-01-10] MEDS: MethylPREDNISolone 40 mg Vial IVP SCH (05:14)
[2018-01-10] MEDS ORDERED: Insulin Detemir 100 units/ml Vial (Levemir) SC STA ×2 (05:48→16:56)
[2018-01-10 05:59] LABS: BASO % 0.2 % (0.0-2.0); HEMOGLOBIN 11.8 g/dL (11.0-16.0); LYMPH # 0.6 K/uL (1.0-4.3); LYMPH % 10.4 % (20.0-40.0); MEAN CELL VOLUME 82.3 fL (81.0-99.0); MEAN CORPUSCULAR HEMOGLOBIN 27.9 pg (27.0-31.0); MEAN CORPUSCULAR HGB CONC 33.8 g/dL (33.0-37.0); MEAN PLATELET VOLUME 9.2 fL (7.2-11.7); MONO # 0.2 K/uL (0.0-0.8); MONO % 3.4 % (0.0-10.0); NEUT # 5.2 K/uL (1.8-7.0); NRBC % 0.1 % (0.0-2.0); RBC 4.25 Mil/uL (3.80-5.20); RED CELL DISTRIBUTION WIDTH 14.1 % (11.5-14.5)
[2018-01-10] MEDS ORDERED: DiphenhydrAMINE 50 mg/ml Inj IVP ONE ×2 (06:00→08:45)
[2018-01-10 06:25] LABS: ALB/GLOB RATIO 1.4 (1.0-2.1); ALBUMIN 4.3 g/dL (3.5-5.0); CALCIUM 9.8 mg/dl (8.6-10.4)
[2018-01-10] MEDS: (Novolin R) Insulin Human Regular 100 units/ml vial SC SCH ×4 (08:00→22:00)
[2018-01-10] MEDS ORDERED: Iodixanol 320 MG/ML 100 ML BOTTLE IV ONE (09:31)
[2018-01-10] MEDS: Sodium Chloride 0.9% 1,000 ML IV SCH (09:45)
[2018-01-10] MEDS: GlipiZIDE 5 mg SR Tab PO SCH ×2 (10:00→21:48)
[2018-01-10] MEDS: Enoxaparin 40 mg Syringe SC SCH (11:00)
[2018-01-10] MEDS: Metoprolol Succinate 25 mg XL Tab PO SCH (11:30)
[2018-01-10] MEDS: Nitroglycerin 50mg in D5W 50 MG/250 ML BOTTLE IV SCH (13:00)
--- NOTE | 2018-01-10 13:23 | CT ---
Date of service: 01/10/2018 PROCEDURE: CT Chest with contrast (Pulmonary Angiogram) HISTORY: r/o PE COMPARISON: Chest CT without contrast 01/07/2018. TECHNIQUE: Axial computed tomography images were obtained of the chest in the pulmonary arterial phase of enhancement. Coronal and sagittal reformatted images were created and reviewed. Intravenous contrast dose: Visipaque 320, 100 cc patient was apparently premedicated due to history of prior iodinated contrast reaction. Radiation dose: Total exam DLP = 440.08 mGy-cm. This CT exam was performed using one or more of the following dose reduction techniques: Automated exposure control, adjustment of the mA and/or kV according to patient size, and/or use of iterative reconstruction technique. FINDINGS: PULMONARY ARTERIES: Unremarkable. No pulmonary embolism. AORTA: No acute findings. No thoracic aortic aneurysm. Dense aortic calcifications reiterated. LUNGS: Unremarkable. No nodule, mass or pulmonary consolidation. Limited linear atelectasis identified at the left lower lobe once again which trace bilateral basilar dependent atelectasis again evident. PLEURAL SPACES: Unremarkable. No effusion or pneumothorax. HEART: Unremarkable. No cardiomegaly. No significant pericardial effusion. Permanent pacemaker/AICD reiterated as well as evidence of CABG. LYMPH NODES: No lymphadenopathy. BONES, CHEST WALL: Unremarkable. No fracture or destructive lesion OTHER FINDINGS: Prior cholecystectomy noted. IMPRESSION: 1. No CT evidence to suggest pulmonary embolus at this time. 2. No interval pneumonitis, pleural effusion or pneumothorax bilaterally. Linear atelectasis or fibrosis left lower lobe reiterated. Post CABG identified as well as pacemaker/AICD. 3. Dense aortic calcifications reiterated.
[2018-01-10] MEDS: (Novolin N) Insulin Human Isophane (NPH) 100 u/ml 10 ml vial SC SCH (21:49)
--- NOTE | 2018-01-10 22:42 | CP.PCM.PN ---
Subjective - Date & Time of Evaluation Date of Evaluation: 01/10/18 Time of Evaluation: 18:40 - Subjective Subjective: Patient seen and evaluated Denies chest pain and dyspnea will consider d/c patient home [facility] intervention as out patient Objective - Vital Signs/Intake and Output Vital Signs (last 24 hours): Temp Pulse Resp BP Pulse Ox 98.2 F 80 18 124/63 99 01/10/18 16:00 01/10/18 20:17 01/10/18 20:17 01/10/18 20:18 01/10/18 20:17 Intake and Output: 01/10/18 01/11/18 18:59 06:59 Intake Total 1308.0 321.5 Output Total 1700 Balance 1308.0 -1378.5 - Medications Medications: Current Medications Acetaminophen (Tylenol 325mg Tab) 650 mg PO Q6 PRN PRN Reason: Headache Last Admin: 01/09/18 05:27 Dose: 650 mg Clopidogrel Bisulfate (Plavix) 75 mg PO DAILY [facility] Last Admin: 01/10/18 11:30 Dose: 75 mg Dextrose (Dextrose 50% Inj) 0 ml IV STAT PRN; Protocol PRN Reason: Hypoglycemia Protocol Dextrose (Glutose 15) 0 gm PO ONCE PRN; Protocol PRN Reason: Hypoglycemia Protocol Enalapril Maleate (Vasotec) 5 mg PO DAILY [facility] Last Admin: 01/10/18 11:30 Dose: 5 mg Enoxaparin Sodium (Lovenox) 40 mg SC DAILY [facility] Last Admin: 01/10/18 11:00 Dose: 40 mg Famotidine (Pepcid) 20 mg PO DAILY [facility] Last Admin: 01/10/18 11:30 Dose: 20 mg Glipizide (Glucotrol Xl) 5 mg PO DAILY [facility] Last Admin: 01/10/18 10:00 Dose: Not Given Glipizide (Glucotrol Xl) 15 mg PO HS [facility] Last Admin: 01/10/18 21:48 Dose: 15 mg Glucagon (Glucagen Diagnostic Kit) 0 mg IM STAT PRN; Protocol PRN Reason: Hypoglycemia Protocol Sodium Chloride (Sodium Chloride 0.9%) 1,000 mls @ 60 mls/hr IV .[id number] [facility] Last Admin: 01/10/18 09:45 Dose: 60 mls/hr Insulin Human NPH (Novolin N) 12 unit SC [facility] Last Admin: 01/10/18 21:49 Dose: 12 u Insulin Human Regular (Novolin R) 0 unit SC [facility]; Protocol Last Admin: 01/10/18 17:30 Dose: 12 u Metformin HCl (Glucophage) 500 mg PO BID [facility] Last Admin: 01/09/18 17:43 Dose: 500 mg Metoprolol Succinate (Toprol Xl) 25 mg PO DAILY [facility] Last Admin: 01/10/18 11:30 Dose: 25 mg Nitroglycerin (Nitrostat Sl Tab) 0.4 mg SL Q5M PRN PRN Reason: Pain, moderate (4-7) Rosuvastatin Calcium (Crestor) 20 mg PO [facility] Last Admin: 01/10/18 21:48 Dose: 20 mg - Labs Labs: 01/10/18 05:54 01/10/18 05:54 PT 12.4 SECONDS (9.7-12.2) H 01/07/18 15:05 INR 1.1 01/07/18 15:05 APTT 44 SECONDS (21-34) H D 01/09/18 00:55
[2018-01-11] MEDS: Sodium Chloride 0.9% 1,000 ML IV SCH ×2 (02:00→06:08)
[2018-01-11 05:01] LABS: BASO # 0.1 K/uL (0.0-0.2); BASO % 0.6 % (0.0-2.0); EOS % 0.3 % (0.0-4.0); HEMOGLOBIN 11.4 g/dL (11.0-16.0); LYMPH % 20.3 % (20.0-40.0); MEAN CELL VOLUME 83.7 fL (81.0-99.0); MEAN CORPUSCULAR HEMOGLOBIN 27.4 pg (27.0-31.0); MEAN CORPUSCULAR HGB CONC 32.8 g/dL (33.0-37.0); MEAN PLATELET VOLUME 8.6 fL (7.2-11.7); MONO # 0.8 K/uL (0.0-0.8); MONO % 7.8 % (0.0-10.0); NEUT # 7.1 K/uL (1.8-7.0); RBC 4.15 Mil/uL (3.80-5.20); RED CELL DISTRIBUTION WIDTH 14.1 % (11.5-14.5)
[2018-01-11 05:38] LABS: ALB/GLOB RATIO 1.5 (1.0-2.1); CALCIUM 8.5 mg/dl (8.6-10.4)
[2018-01-11] MEDS ORDERED: Dextrose 50% SYRINGE Inj (50 ml) ONE (07:32)
[2018-01-11] MEDS ORDERED: Dextrose 50% SYRINGE Inj (50 ml) IV ONE (07:33)
[2018-01-11] MEDS: (Novolin R) Insulin Human Regular 100 units/ml vial SC SCH ×3 (07:45→16:52)
[2018-01-11] MEDS: Enoxaparin 40 mg Syringe SC SCH (10:13)
[2018-01-11] MEDS: GlipiZIDE 5 mg SR Tab PO SCH (10:13)
[2018-01-11] MEDS: Metoprolol Succinate 25 mg XL Tab PO SCH (10:16)
[2018-01-11 18:59] VITALS: BP 116/63; PULSE 74; RESP 21; TEMP 98.6; O2SAT 98
== END 2018-01-11 19:00 | disposition home or self-care (01) | DRG 281 ==
LOC: C.ER → C.6T 01:46 → C.9I 13:15 → OBSVTOIN 13:42 → INTOOBSV 13:42 → C.6T 16:12 → C.9I 16:18
PROVIDERS: ADMIT Internal Medicine; ATTEND Internal Medicine
PROC: 4A023N7 Measurement of Cardiac Sampling and Pressure, Left Heart, Percutaneous Approach (ICD-10-PCS; principal; 2018-01-09)
PROC: B211YZZ Fluoroscopy of Multiple Coronary Arteries using Other Contrast (ICD-10-PCS; 2018-01-09)
PROC: B218YZZ Fluoroscopy of Left Internal Mammary Bypass Graft using Other Contrast (ICD-10-PCS; 2018-01-09)
PROC: B215YZZ Fluoroscopy of Left Heart using Other Contrast (ICD-10-PCS; 2018-01-09)
DX: I21.4 Non-ST elevation (NSTEMI) myocardial infarction (principal); T82.198A Other mechanical complication of other cardiac electronic device, initial encounter; I25.10 Atherosclerotic heart disease of native coronary artery without angina pectoris; Y71.2 Prosthetic and other implants, materials and accessory cardiovascular devices associated with adverse incidents; I10 Essential (primary) hypertension; Z95.1 Presence of aortocoronary bypass graft; E11.9 Type 2 diabetes mellitus without complications; J45.909 Unspecified asthma, uncomplicated; E78.00 Pure hypercholesterolemia, unspecified; Z87.891 Personal history of nicotine dependence; Z79.4 Long term (current) use of insulin

== ENCOUNTER 2018-03-23 20:02 | Emergency (ER) | payer MEDICARE ==
[2018-03-23 20:39] LABS: URINE BACTERIA OCC (<OCC); URINE BILIRUBIN NEGATIVE (NEGATIVE); URINE BLOOD 3+ (NEGATIVE); URINE CALCIUM OXALATE CRYSTALS MOD /hpf (<OCC); URINE CLARITY Hazy (Clear); URINE COLOR Yellow (YELLOW); URINE GLUCOSE (UA) NORMAL (Normal); URINE LEUKOCYTE ESTERASE 3+ Leu/uL (Negative); URINE PROTEIN 2+ mg/dL (NEGATIVE); URINE UROBILINOGEN NORMAL mg/dL (0.2-1.0); WBC CLUMPS MANY /hpf
[2018-03-23] MEDS ORDERED: Ciprofloxacin 400mg/200ml D5W 400 MG/200 ML BAG IVPB STA (20:41)
[2018-03-23 20:48] LABS: BASO # 0.1 K/uL (0.0-0.2); BASO % 1.1 % (0.0-2.0); EOS # 0.1 K/uL (0.0-0.7); EOS % 0.8 % (0.0-4.0); LYMPH # 1.2 K/uL (1.0-4.3); LYMPH % 13.6 % (20.0-40.0); MEAN CELL VOLUME 83.7 fL (81.0-99.0); MEAN CORPUSCULAR HEMOGLOBIN 26.9 pg (27.0-31.0); MEAN CORPUSCULAR HGB CONC 32.1 g/dL (33.0-37.0); MEAN PLATELET VOLUME 8.4 fL (7.2-11.7); MONO # 0.8 K/uL (0.0-0.8); NEUT # 6.5 K/uL (1.8-7.0); NEUT % 75.5 % (50.0-75.0); NRBC % 0.1 % (0.0-2.0); RBC 4.46 Mil/uL (3.80-5.20); WHITE BLOOD COUNT 8.7 K/uL (4.8-10.8)
[2018-03-23] MEDS ORDERED: Ciprofloxacin 400mg/200ml D5W 400 MG/200 ML BAG IVPB ONE (20:49)
--- NOTE | 2018-03-23 20:54 | C.PDOC ---
History Of Present Illness 67 year old female with a PMHx of HTN, high cholesterol, diabetes, and CAD presents to the ER with with a complaint of dysuria for the past 2 days associated with some hematuria, increased frequency and urgency, and bilateral lower back pain. Denies fever, SOB, or vomiting. Time Seen by Provider: 03/23/18 20:37 Chief Complaint (Nursing): Abdominal Pain History Per: Patient History/Exam Limitations: no limitations Onset/Duration Of Symptoms: Days (2) Current Symptoms Are (Timing): Still Present Associated Symptoms: Back Pain (Lower), Urinary Symptoms (Dysuria, hematuria, frequency, urgency). denies: Fever, Vomiting, Other (SOB) Exacerbating Factors: None Alleviating Factors: None Recent travel outside of the [place]: No Abnormal Vaginal Bleeding: No Past Medical History Reviewed: Historical Data, Nursing Documentation, Vital Signs Vital Signs: Last Vital Signs Temp 98.8 F 03/23/18 20:10 Pulse 88 03/23/18 20:10 Resp 14 03/23/18 20:10 BP 187/95 H 03/23/18 20:10 Pulse Ox 98 03/23/18 20:10 - Medical History PMH: Asthma, Diabetes, HTN, Hypercholesterolemia Surgical History: CABG, Cholecystectomy, Pacemaker - [facility] CORONAR ARTERIOGR-2 CATH (06/01/01) FLUOROSCOPY OF L INT MAMM GRAFT USING OTH CONTRAST (01/07/18) FLUOROSCOPY OF LEFT HEART USING LOW OSMOLAR CONTRAST (10/02/17) FLUOROSCOPY OF LEFT HEART USING OTHER CONTRAST (01/07/18) FLUOROSCOPY OF MULT COR ART USING L OSM CONTRAST (10/02/17) FLUOROSCOPY OF MULTIPLE CORONARY ARTERIES USING OTH CONTRAST (01/07/18) FLUOROSCOPY OF THORACIC AORTA USING LOW OSMOLAR CONTRAST (02/19/17) LEFT HEART CARDIAC CATH (06/01/01) LT HEART ANGIOCARDIOGRAM (06/01/01) MEASURE OF CARDIAC SAMPL & PRESSURE, L HEART, PERC APPROACH (01/07/18) Family History: States: Unknown Family Hx - Social History Hx Tobacco Use: No Hx Alcohol Use: No Hx Substance Use: No - Immunization History Hx Tetanus Toxoid Vaccination: No Hx Influenza Vaccination: Yes Hx Pneumococcal Vaccination: Yes Review Of Systems Except As Marked, All Systems Reviewed And Found Negative. Constitutional: Negative for: Fever Respiratory: Negative for: Shortness of Breath Gastrointestinal: Negative for: Vomiting Genitourinary: Positive for: Dysuria, Frequency, Hematuria, Other (Urgency) Musculoskeletal: Positive for: Back Pain (Lower back) Physical Exam - Physical Exam Additional Physical Exam Comments: Constitutional: No acute distress. Head: Normocephalic. Atraumatic. Eyes: PERRL. ENT: Moist mucous membranes. Neck: Supple. Cardiovascular: Regular rate. Radial pulse 2+ bilaterally. Chest: No tenderness. Respiratory: Clear to auscultation bilaterally. GI: Suprapubic tenderness. Back: Right CVA tenderness. Musculoskeletal: No tenderness or swelling of extremities. Skin: No rash. Neurologic: Alert, no focal deficit. ED Course And Treatment - Laboratory Results Result Diagrams: 03/23/18 20:43 03/23/18 20:43 O2 Sat by Pulse Oximetry: 98 (Room air) Pulse Ox Interpretation: Normal Medical Decision Making Medical Decision Making: Blood work and urinalysis ordered. Cipro and pyridium administered. Culture sent. Discharged home, f/u PMD, return to ED for worsening pain, fever, chills, vomiting, or any other problem. Disposition - Disposition Referrals: Aquiles Strange Jr., MD [Medical Doctor] - Disposition: HOME/ ROUTINE Disposition Time: 21:54 Condition: STABLE Prescriptions: Ciprofloxacin [Cipro] 500 mg PO BID #14 tab Phenazopyridine [Pyridium] 1 tab PO Q8 #6 tab Instructions: Urinary Tract Infections in Adults Forms: [facility] (Nauruan) - Clinical Impression Clinical Impression: UTI (urinary tract infection) - Scribe Statement The provider has reviewed the documentation as recorded by the Scribmichelle Carrington All medical record entries made by the Scribe were at my direction and per sonally dictated by me. I have reviewed the chart and agree that the record accurately reflects my personal performance of the history, physical exam, medical decision making, and the department course for this patient. I have also personally directed, reviewed, and agree with the discharge instructions and disposition.
[2018-03-23 21:03] LABS: BLOOD UREA NITROGEN 15 mg/dL (7-17); CALCIUM 9.4 mg/dl (8.6-10.4); GFR NON-AFRICAN AMERICAN > 60
[2018-03-23 21:04] LABS: ALB/GLOB RATIO 1.6 (1.0-2.1); ALT/SGPT 15 U/L (9-52); AST/SGOT 20 U/L (14-36)
[2018-03-23 22:33] VITALS: BP 128/71; PULSE 102; RESP 20; TEMP 97.8; O2SAT 97
== END 2018-03-23 22:35 | disposition home or self-care (01) ==
LOC: C.ER 20:02
DX: N39.0 Urinary tract infection, site not specified (principal); I10 Essential (primary) hypertension; E78.00 Pure hypercholesterolemia, unspecified; E11.9 Type 2 diabetes mellitus without complications; Z95.1 Presence of aortocoronary bypass graft; Z95.0 Presence of cardiac pacemaker; Z87.891 Personal history of nicotine dependence
CPT/HCPCS: 80053; 81001; 85025; 87086; 87181; 96365; 99284; J0744